=== PATIENT | female | born 1955 | race Caucasian/White ===

== ENCOUNTER 2016-08-11 21:15 | Observation (INO) | payer OTHER ==
[~2016-08-11] VITALS: Ht 160 cm; Wt 71.6 kg
[~2016-08-11 21:15] MED LIST: ANTIVERT25 MG PO; ASA OR; ASPIR-8181 MG OR; AZITHROMYCIN250 MG PO; COMBIVENT IN; DARVOCET N-100100 - OR; DOXYCYC MONO100 M1 OR; KEFLEX500 MG OR; LEVAQUIN500 MG PO; LORTAB 5 OR; Levaquin OR; MACROBID100 MG OR; MEDDOSEPAK OR; MIRALAX3350 N1 OR; NAPROSYN500 MG OR; PREDNISONE20 MG OR; PREDNISONE20 MG PO; PROVENTIL INH17 GM IN; SINGULAIR10 MG OR; SINGULAIR10 MG PO; SPIRIVA IN; THEO-24200 MG OR; THEO-24200 MG PO; VENTOLIN HFA IN; XOPENEX HFA IN; ZOFRAN ODT4 MG PO; ZPAK OR; [UNRECOGNIZED DRUG - OTHER] OR
--- NOTE | 2016-08-11 21:15 | NUR ---
PT TO ROOM FOR TREATMENT VIA WHEELCHAIR FOR TREATMENT.
[2016-08-11 21:52] LABS: HEMATOCRIT 42.3 % (37.0-47.0); HEMOGLOBIN 13.6 g/dl (12.0-16.0); IMMATURE GRANULOCYTES 0.3 % (0.0-1.0); MEAN CELL VOLUME 95.9 fL CALC (80.0-100.0); MEAN CORPUSCULAR HGB 30.8 pG CALC (26.0-32.0); MEAN CORPUSCULAR HGB CONC 32.2 g/L CALC (32.0-36.0); NEUT# 5.06 thou/uL (2.00-7.15); RED BLOOD COUNT 4.41 mill/uL (4.20-5.60); RED CELL DISTRI WIDTH 12.3 % (11.5-15.5)
[2016-08-11 22:09] LABS: ALBUMIN 4.5 g/dL (3.2-5.0); ALKALINE PHOSPHATASE 137 u/l (38-126); AMYLASE 112 u/l (30-110); ANION GAP 16 (6-22 (CALC)); BILIRUBIN, TOTAL 0.5 mg/dL (0.0-1.4); BUN 16 mg/dL (8-23); BUN/CREATININE RATIO 22 (12-20 (CALC)); CALCIUM 9.6 mg/dL (8.4-10.2); CARBON DIOXIDE 32 mmol/l (22-30); CHLORIDE 100 mmol/l (95-108); CREATININE 0.7 mg/dL (0.5-1.0); GFR > 60 ML/MIN (>=60 (CALC)); GFR FOR AFR.AMER. > 60 ML/MIN (>=60 (CALC)); GLUCOSE 101 mg/dL (82-115); LIPASE 130 u/l (23-300); POTASSIUM 4.3 mmol/l (3.5-5.1); SGOT/AST 28 u/l (9-36); SGPT/ALT 34 u/l (11-66); SODIUM 143 mmol/l (137-146); TOTAL PROTEIN 8.4 g/dL (6.3-8.2)
--- NOTE | 2016-08-11 22:15 | NUR ---
PAIN DOWN TO 3/10.
[2016-08-11] MEDS ORDERED: DITROPAN PO (22:36)
[2016-08-11] MEDS ORDERED: IBUPROFEN200 MG PO (22:37)
--- NOTE | 2016-08-11 23:30 | NUR ---
PT STATES CHEST PAIN STILL GONE AND HEADACHE BETTER. TRIED TO CALL REPORT, NURSE WILL CALL BACK
--- NOTE | 2016-08-12 00:01 | NUR ---
REPORT GIVEN TO DAMIÁN TATE.
--- NOTE | 2016-08-12 00:08 | NUR ---
female pt received to 261 via wc accompanied by DAMIÁN Faye in stable condition; ambulatory to scale then bed with slow gait; admission assessment completed at this time; c/c of intermittent midsternal chest pain since 1400 08/11/16; denies sob/n/v/diaphoresis with cp; pain did not radiate; deny chest pain at this moment; a&o; complaints of headache rating 10/10; tylenol offered with refusal; s/e of ntg explained; resp even and unlabored; lungs clear/ coarse bases; skin color wnl; o2 per nc; pt is home o2 depend; dry nonprod cough noted; hr reg; sr on monitor; strong pulses; discoloration noted to bilat feet; abd soft with bs present; pt admits to freq voiding; no urine to inspect at this time; #22 flushed and patent to lac; plan of care/ meds explained; call light within reach; will continue to monitor
--- NOTE | 2016-08-12 00:10 | NUR ---
Admission Note Report Given to: DAMIÁN TATE. Transported by: X Wheelchair Stretcher Transported with: X Nurse Transporter X Patent IV O2 X Director Of Product Development
[2016-08-12 00:15] VITALS: BP 169/94
--- NOTE | 2016-08-12 02:10 | NUR ---
resting with eyes closed; no distress noted; will continue to monitor
--- NOTE | 2016-08-12 04:15 | NUR ---
resting with eyes closed; no distress noted; sr 68 on tele; iv intact; call light within reach; will continue to monitor
[2016-08-12 04:35] VITALS: BP 132/83
[2016-08-12 07:35] VITALS: BP 155/93
[2016-08-12 08:49] LABS: ANION GAP 15 (6-22 (CALC)); BUN 12 mg/dL (8-23); BUN/CREATININE RATIO 18 (12-20 (CALC)); CARBON DIOXIDE 31 mmol/l (22-30); CHLORIDE 102 mmol/l (95-108); CREATININE 0.7 mg/dL (0.5-1.0); GFR > 60 ML/MIN (>=60 (CALC)); GFR FOR AFR.AMER. > 60 ML/MIN (>=60 (CALC)); GLUCOSE 98 mg/dL (82-115); MAGNESIUM 2.3 mg/dL (1.6-2.3); POTASSIUM 4.3 mmol/l (3.5-5.1); SODIUM 144 mmol/l (137-146)
--- NOTE | 2016-08-12 09:08 | NUR ---
PT ASSSITED TO SITTING UP IN RECLINER AT BEDSIDE, PT AMBULATES WITH FAIRLY STEADY GAIT AND STAND BY ASSIST, TOLERATES ACTIVITY WELL, AM ASSESSMENT COMPLETED SEE INTERVENTIONS, SKIN INTACT WITH NO BREAKDOWN NOTED, TELE INTACT OFFERS NO COMPLAINTS OF PAIN AT THIS TIME, SAFETY MEASURES REINFORCED, WILL CONTINUE TO MONITOR
--- NOTE | 2016-08-12 09:11 | NUR ---
TOLERATED DIET WELL, OFFERS NO NEW COMPLAINTS, CONTINUES TO DENY CHEST PAIN.
[2016-08-12] MEDS ORDERED: PROTONIX40 MG PO (10:11)
[2016-08-12] MEDS ORDERED: DIOVAN HCT PO (10:11)
[2016-08-12 11:17] VITALS: BP 138/84
--- NOTE | 2016-08-12 12:00 | NUR ---
IN TO SEE PATIENT EARLIER, DISCUSSED WITH HER NEED FOR ANTIHYPERTENSIVE, PT VERBALIZES UNDERSTANDING
--- NOTE | 2016-08-12 12:20 | NUR ---
PT STARTED ON DIOVAN/HCTZ ORDERED, PT EDUCATED REGARDING REASON FOR ADMINSTRATION, EXPECTATIONS, AND POSSOBLE SIDE EFFECTS, VERBSLIZES UNDERSTANDING WILL RECHECK BP IN ONE HR
--- NOTE | 2016-08-12 13:10 | NUR ---
REPEAT BP 127/81 PLANNED D/C AT THIS TIME
[2016-08-12 13:20] VITALS: BP 127/81
--- NOTE | 2016-08-12 14:00 | NUR ---
Discharge instructions given. Patient verbalizes understanding of same. Discharged in stable condition via Wheelchair to Home with friend. All belongings sent with pt.
== END 2016-08-12 13:58 | disposition home or self-care (01) | DRG 313 ==
LOC: ENPENDDIS → ED 21:15 → ED-I 22:48 → ED 23:04 → MS2 23:05
PROVIDERS: Emergency Medicine; ADMIT Internal Medicine; ATTEND Internal Medicine
PROC: 3E0234Z Introduction of Serum, Toxoid and Vaccine into Muscle, Percutaneous Approach (ICD-10-PCS; principal; 2016-08-12)
DX: R07.9 Chest pain, unspecified (principal); J96.11 Chronic respiratory failure with hypoxia; R73.03 Prediabetes; J44.9 Chronic obstructive pulmonary disease, unspecified; K21.9 Gastro-esophageal reflux disease without esophagitis; R10.13 Epigastric pain; I10 Essential (primary) hypertension; Z23 Encounter for immunization; Z87.891 Personal history of nicotine dependence
CPT/HCPCS: G0378; J1650

== ENCOUNTER 2016-09-04 17:43 | Emergency (ER) | payer OTHER ==
[~2016-09-04] VITALS: Ht 160 cm; Wt 70.0 kg
[~2016-09-04 17:43] MED LIST changes: +DIOVAN HCT PO; +DITROPAN PO; +IBUPROFEN200 MG PO; +PROTONIX40 MG PO
[2016-09-04 18:21] LABS: HEMOGLOBIN 13.8 g/dl (12.0-16.0); IMMATURE GRANULOCYTES 0.7 % (0.0-1.0); MEAN CORPUSCULAR HGB 31.2 pG CALC (26.0-32.0); MEAN CORPUSCULAR HGB CONC 32.9 g/L CALC (32.0-36.0); NEUT# 6.8 thou/uL (2.00-7.15); RED BLOOD COUNT 4.42 mill/uL (4.20-5.60); RED CELL DISTRI WIDTH 12.3 % (11.5-15.5)
[2016-09-04 18:59] LABS: ALBUMIN 4.5 g/dL (3.2-5.0); ALKALINE PHOSPHATASE 123 u/l (38-126); ANION GAP 17 (6-22 (CALC)); BILIRUBIN, TOTAL 1.5 mg/dL (0.0-1.4); BUN 21 mg/dL (8-23); BUN/CREATININE RATIO 25 (12-20 (CALC)); CALCIUM 9.7 mg/dL (8.4-10.2); CARBON DIOXIDE 27 mmol/l (22-30); CHLORIDE 98 mmol/l (95-108); CREATININE 0.8 mg/dL (0.5-1.0); GFR > 60 ML/MIN (>=60 (CALC)); GFR FOR AFR.AMER. > 60 ML/MIN (>=60 (CALC)); GLUCOSE 95 mg/dL (82-115); POTASSIUM 3.9 mmol/l (3.5-5.1); SGOT/AST 31 u/l (9-36); SGPT/ALT 39 u/l (11-66); SODIUM 139 mmol/l (137-146); TOTAL PROTEIN 8.6 g/dL (6.3-8.2)
[2016-09-04] MEDS ORDERED: BACTRIM DS1 TAB PO (20:00)
[2016-09-04] MEDS ORDERED: NAPROSYN500 MG PO (20:00)
[2016-09-04 20:18] LABS: URINE BILIRUBIN - DIPSTICK NEGATIVE (NEGATIVE); URINE BLOOD DIPSTICK TRACE-INTACT (NEGATIVE); URINE COLOR YELLOW; URINE GLUCOSE - DIPSTICK NEGATIVE (NEGATIVE); URINE KETONE NEGATIVE (NEGATIVE); URINE LEUK ESTERASE MODERATE (Negative); URINE NITRITE - DIPSTICK NEGATIVE (Negative); URINE PROTEIN - DIPSTICK NEGATIVE (NEG-TRACE); URINE UROBILINOGEN - DIPSTICK 0.2 E.U./dL (0.2)
[2016-09-04 20:19] LABS: URINE CLARITY HAZY
[2016-09-04 20:28] LABS: URINE SQUAMOUS EPITHELIAL CELL FEW EPI/hpf (0-FEW)
[2016-09-04 20:30] VITALS: BP 140/89
== END 2016-09-04 20:35 | disposition home or self-care (01) | DRG 603 ==
LOC: ED 17:43
DX: L03.116 Cellulitis of left lower limb (principal); N39.0 Urinary tract infection, site not specified; B95.7 Other staphylococcus as the cause of diseases classified elsewhere

== ENCOUNTER 2017-04-16 20:32 | Observation (INO) | payer OTHER ==
[~2017-04-16] VITALS: Ht 160 cm; Wt 75.0 kg
[~2017-04-16 20:32] MED LIST changes: +BACTRIM DS1 TAB PO; +NAPROSYN500 MG PO
[2017-04-16 21:14] LABS: HEMATOCRIT 40.7 % (37.0-47.0); HEMOGLOBIN 13.5 g/dl (12.0-16.0); IMMATURE GRANULOCYTES 0.5 % (0.0-1.0); MEAN CELL VOLUME 94.9 fL CALC (80.0-100.0); MEAN CORPUSCULAR HGB 31.5 pG CALC (26.0-32.0); MEAN CORPUSCULAR HGB CONC 33.2 g/L CALC (32.0-36.0); NEUT# 5.02 thou/uL (2.00-7.15); RED BLOOD COUNT 4.29 mill/uL (4.20-5.60); RED CELL DISTRI WIDTH 12.6 % (11.5-15.5)
[2017-04-16 21:27] LABS: ALBUMIN 4.5 g/dL (3.2-5.0); ALKALINE PHOSPHATASE 145 u/l (38-126); AMYLASE 87 u/l (30-110); ANION GAP 16 (6-22 (CALC)); BILIRUBIN, TOTAL 0.5 mg/dL (0.0-1.4); BUN 18 mg/dL (8-23); BUN/CREATININE RATIO 18 (12-20 (CALC)); CALCIUM 9.8 mg/dL (8.4-10.2); CARBON DIOXIDE 31 mmol/l (22-30); CHLORIDE 100 mmol/l (95-108); GFR 56 ML/MIN (>=60 (CALC)); GFR FOR AFR.AMER. > 60 ML/MIN (>=60 (CALC)); GLUCOSE 123 mg/dL (82-115); LIPASE 118 u/l (23-300); POTASSIUM 3.7 mmol/l (3.5-5.1); SGOT/AST 35 u/l (9-36); SGPT/ALT 39 u/l (11-66); SODIUM 143 mmol/l (137-146); TOTAL PROTEIN 7.8 g/dL (6.3-8.2)
[2017-04-16 21:32] LABS: PROTHROMBIN TIME 10.7 SECONDS (9.0-12.5)
[2017-04-16 21:39] LABS: MYOGLOBIN 29 ng/mL (0 - 62)
[2017-04-17 01:00] VITALS: BP 129/83
[2017-04-17 02:28] LABS: URINE BILIRUBIN - DIPSTICK NEGATIVE (NEGATIVE); URINE BLOOD DIPSTICK NEGATIVE (NEGATIVE); URINE COLOR YELLOW; URINE GLUCOSE - DIPSTICK NEGATIVE (NEGATIVE); URINE KETONE NEGATIVE (NEGATIVE); URINE NITRITE - DIPSTICK NEGATIVE (Negative); URINE PROTEIN - DIPSTICK NEGATIVE (NEG-TRACE)
[2017-04-17 02:29] LABS: URINE CLARITY CLEAR; URINE LEUK ESTERASE SMALL (NEGATIVE)
[2017-04-17 02:40] LABS: URINE BACTERIA MODERATE hpf
[2017-04-17 03:45] LABS: CHOLESTEROL HDL RATIO 2.1 (<4.4 (CALC))
[2017-04-17 05:00] VITALS: BP 119/68
[2017-04-17 08:06] VITALS: BP 144/87
[2017-04-17] MEDS ORDERED: NITROGLYCER0.4 MG SL (10:10)
[2017-04-17 11:20] VITALS: BP 143/87
[2017-04-17] MEDS ORDERED: KEFLEX500 M1 PO (11:42)
== END 2017-04-17 12:00 | disposition home or self-care (01) | DRG 311 ==
LOC: ED 20:32 → ED-I 22:28 → ED 22:58 → MS2 22:59
PROVIDERS: Emergency Medicine; ADMIT Internal Medicine; ATTEND Internal Medicine
DX: I20.9 Angina pectoris, unspecified (principal); J96.10 Chronic respiratory failure, unspecified whether with hypoxia or hypercapnia; Z99.81 Dependence on supplemental oxygen; J43.9 Emphysema, unspecified; N39.0 Urinary tract infection, site not specified; M19.90 Unspecified osteoarthritis, unspecified site; K21.9 Gastro-esophageal reflux disease without esophagitis; R32 Unspecified urinary incontinence; R10.13 Epigastric pain; Z95.820 Peripheral vascular angioplasty status with implants and grafts; Z87.440 Personal history of urinary (tract) infections; Z87.891 Personal history of nicotine dependence; Z82.49 Family history of ischemic heart disease and other diseases of the circulatory system
CPT/HCPCS: G0378

== ENCOUNTER 2017-09-28 22:57 | Inpatient (IN) | payer OTHER ==
[~2017-09-28] VITALS: Ht 160 cm; Wt 82.2 kg
[~2017-09-28 22:57] MED LIST changes: +KEFLEX500 M1 PO; +NITROGLYCER0.4 MG SL
--- NOTE | 2017-09-28 23:00 | NUR ---
PATIENT TO ROOM 9 VIA EMS STRETCHER. UNDRESSED INTO A GOWN. PLACD ON MONITOR. TRIAGE COMPLETED AT BEDSIDE AWAITING MD GARCIA.
--- NOTE | 2017-09-28 23:10 | NUR ---
A/O F WITH SOB,SL NEGATIVE SPOTTER COUGH,SWEATS FEVER ON ARRIVAL TO ER.DENIES DYSURIA,NO V/D
[2017-09-28] MEDS ORDERED: MELOXICAM15 MG PO (23:20)
[2017-09-28 23:28] LABS: BASO% 0 % (0-3); EOS% 0 % (0-8); HEMATOCRIT 43.1 % (37.0-47.0); IMMATURE GRANULOCYTES 1.6 % (0.0-1.0); LYMPH% 3 % (15-41); MEAN CELL VOLUME 94.7 fL CALC (80.0-100.0); MEAN CORPUSCULAR HGB 30.8 pG CALC (26.0-32.0); MEAN CORPUSCULAR HGB CONC 32.5 g/L CALC (32.0-36.0); MONO% 2 % (2-13); NEUT# 35.41 thou/uL (2.00-7.15); NEUT% 94 % (42-76); PLATELET COUNT 305 thou/uL (130-400); RED BLOOD COUNT 4.55 mill/uL (4.20-5.60); RED CELL DISTRI WIDTH 12.4 % (11.5-15.5)
[2017-09-28 23:36] LABS: MANUAL DIFFERENTIAL YES
[2017-09-28 23:38] LABS: INFLUENZA A NONE DETECTED (NONE DETECT); INFLUENZA B NONE DETECTED (NONE DETECT)
[2017-09-28 23:41] LABS: ALBUMIN 4.3 g/dL (3.2-5.0); ALKALINE PHOSPHATASE 131 u/l (38-126); ANION GAP 21 (6-22 (CALC)); BILIRUBIN, TOTAL 0.9 mg/dL (0.0-1.4); BUN 18 mg/dL (8-23); BUN/CREATININE RATIO 27 (12-20 (CALC)); CARBON DIOXIDE 24 mmol/l (22-30); CHLORIDE 100 mmol/l (95-108); CREATININE 0.7 mg/dL (0.5-1.0); GFR > 60 ML/MIN (>=60 (CALC)); GFR FOR AFR.AMER. > 60 ML/MIN (>=60 (CALC)); POTASSIUM 4.1 mmol/l (3.5-5.1); SGOT/AST 29 u/l (9-36); SGPT/ALT 33 u/l (11-66); SODIUM 140 mmol/l (137-146); TOTAL PROTEIN 8.8 g/dL (6.3-8.2)
[2017-09-28 23:47] LABS: PROTHROMBIN TIME 10.9 SECONDS (9.0-12.5)
[2017-09-28 23:50] LABS: PLATELET ESTIMATE NORMAL
[2017-09-28 23:53] LABS: MYOGLOBIN 22 ng/mL (0 - 62)
[2017-09-29] VITALS (21 sets, daily range): BP systolic 99–139; BP diastolic 54–79
--- NOTE | 2017-09-29 01:04 | NUR ---
NO RESP DIFF OR DISTRESS.W/P/D SKIN.SAT ON COMMODE CHAIR BUT UNABLE TO VOID ASSISTED BACK TO BED
--- NOTE | 2017-09-29 01:45 | NUR ---
PATIENT IS STILL UNABLE TO VOID. AGREES TO A STRAIGHT CATH FOR URINE SAMPLE. PATIENT TOLERATED WELL. SAMPLE COLLECTED AND SENT.
--- NOTE | 2017-09-29 02:05 | NUR ---
ENTERED PATIENT ROOM FOR AN ALARMING PUMP AND PATIENT STATES SHE FEELS LIKE SHE IS GOING TO PASS OUT. HOB RECLINED AND BP CHECKED. PATIENT IS WARM TO THE TOUCH, AND DIAPHORETIC ON HER FOREHEAD. BP 53/37. MD AWARE AND ORDERS FOR IVF RECEIVED.
[2017-09-29 02:11] LABS: URINE BILIRUBIN - DIPSTICK NEGATIVE (NEGATIVE); URINE BLOOD DIPSTICK TRACE-LYSED (NEGATIVE); URINE COLOR YELLOW; URINE GLUCOSE - DIPSTICK NEGATIVE (NEGATIVE); URINE KETONE NEGATIVE (NEGATIVE); URINE LEUK ESTERASE NEGATIVE (NEGATIVE); URINE NITRITE - DIPSTICK NEGATIVE (Negative); URINE PROTEIN - DIPSTICK NEGATIVE (NEG-TRACE); URINE UROBILINOGEN - DIPSTICK 0.2 E.U./dL (0.2)
[2017-09-29 02:12] LABS: URINE CLARITY CLEAR
--- NOTE | 2017-09-29 02:15 | NUR ---
SECOND IV ESTABLISHED, IVF INFUSING. BP 61/41. PATIENT ACCU CHECK COMPLETED BLOOD SUGAR 140. MD AT BEDSIDE FOR EVAL.
--- NOTE | 2017-09-29 02:24 | NUR ---
A/O DENIES PAIN OF ANY ORIGIN.W/P/D SKIN.IVS INFUSING ORDERED
--- NOTE | 2017-09-29 02:47 | NUR ---
phone report to nurse griffin rn in icu
--- NOTE | 2017-09-29 02:54 | NUR ---
to icu in improved stable condition
--- NOTE | 2017-09-29 03:10 | NUR ---
62 yr old white female admitted icu8 per stretcher from er. transferred self to bed. bed weight obtained. o2 cont per nc. conveyor monitor shows sinus tach. #18 rac-ns bolus & abx cont. #20 lac ns bolus & abx cont. history obtained per pt & er record. oriented to room. fall precautions initiated.
--- NOTE | 2017-09-29 03:45 | NUR ---
up to bsc. voided well. urine clear yellow. no syncope. ivf completed lac & saline locked.
--- NOTE | 2017-09-29 06:10 | NUR ---
voided per bsc. tylenol 650mg po given per request for h/a.
--- NOTE | 2017-09-29 07:20 | NUR ---
pt noted resting with eyes closed; easily aroused; pt offers no complaints; assessment completed at this time; pt alert and oriented; denies pain/ headache; no n/v noted; denies dizziness or faint feeling; resp even and unlabored; lungs clear; skin color wnl; o2 per nc at 2L; dry diabetologist cough noted; hr reg; strong pulses; trace edema noted to lle; st on monitor; abd soft/ distended with bs present; no bm noted per loan underwriter; pt admits to last bm 2 days ago/ states norm; admits to voiding without pain or burning; no urine to inspect at this time; bsc; #18 flushed and patent to rac; #20 ems site removed from lac per pt request d/t discomfort; no redness or edema noted at site; erythema/warmth/edema noted to lower left leg; plan of care/ prn meds explained; call light within reach; will continue to monitor
--- NOTE | 2017-09-29 08:08 | NUR ---
awake in bed; offers no complaints; iv intact; st on monitor; o2 per nc; call light within reach; will continue to monitor
--- NOTE | 2017-09-29 08:19 | NUR ---
Ely Miles NP at bedside to assess pt and discuss plan of care
--- NOTE | 2017-09-29 08:35 | NUR ---
pt transported to ultrasound via with portable o2 in stable condition;
--- NOTE | 2017-09-29 09:10 | NUR ---
pt returned to unit from radiolody via wc in stable condition; pt offers no complaints; no resp distress noted; assist to chair for am care/ linen changed; call light within reach; will continue to monitor
--- NOTE | 2017-09-29 10:05 | NUR ---
awake; no distress noted; offers no complaints; sr on monitor; iv intact; o2 per nc; call light within reach; will continue to monitor
--- NOTE | 2017-09-29 11:54 | NUR ---
awake in bed; assist to bsc; unable to void; pt offers no complaints; denies pain; temp 100.5; medicated with tylenol at this time; iv patent; abt infusing without complication; no redness or edema noted at site; st on monitor; lungs noted with wheezing throughout; sob noted with minimal exertion; call light within reach; will continue to monitor
--- NOTE | 2017-09-29 12:31 | NUR ---
notified Ely Miles NP of pt complaints of pain to lle; orders to be placed
--- NOTE | 2017-09-29 13:58 | NUR ---
pt noted resting with eyes closed; no distress noted; resp even and unlabored; o2 per nc; iv intact; no redness or edema noted at site; sr on monitor; call light within reach; will continue to monitor
--- NOTE | 2017-09-29 14:04 | NUR ---
Drug Selected: Vancomycin Age: 62 years Weight: 80 kg Height: 63 in Gender: Female SCR: 0.7 mg/dl CRCL (ml/min): 67.2 Give Vancomycin 1000 mg q12 hrs NEXT TROUGH WILL BE 09/30/17 @0930AM
--- NOTE | 2017-09-29 16:05 | NUR ---
awake in bed; family present at bedside; Isidro-Dur placed in med room to be verified by pharmacy; iv intact; no redness or edema noted at site; st on monitor; temp 99.2; o2 per nc; pt denies pain/deny needs; po fluids/ juice provided as per request; call light within reach; will continue to monitor
--- NOTE | 2017-09-29 17:57 | NUR ---
awake in bed eating dinner; no distress noted; pt offers no complaints; iv flushed and patent; abt infusing without complication; o2 per nc; st on monitor; pt deny needs/ concerns; bed in lowest position; call light within reach;
--- NOTE | 2017-09-29 19:40 | NUR ---
PT IN HIGHFOWLERS WITH EYES CLOSED, RESPIRATIONS EVEN AND UNLABORED ON O2 @2L VIA NC, O2 SAT 95%. TEMP 101.6, TYLENOL 650MG PO PROVIDED AT THIS TIME. LEFT LEG IS REDDENED AND EDEMATOUS, DENIES PAIN. TELE READING ST 100, B/P 133/62. PO FLUIDS IN REACH. WILL CONTINUE TO MONITOR.
--- NOTE | 2017-09-29 20:51 | NUR ---
TEMP 102.0, ICE PACKS APPLIED
--- NOTE | 2017-09-29 21:30 | NUR ---
TEMP 100.2, VANCOMYCIN INFUSING TO RFA WITH NO COMPLICATIONS.
[2017-09-30] VITALS (17 sets, daily range): BP systolic 103–147; BP diastolic 58–71
--- NOTE | 2017-09-30 | NUR ---
TYLENOL 650MG PO PROVIDED FOR C/O LEFT LEG PAIN 08/07. ZOSYN SPIKED AND INFUSING TO LFA WITH NO COMPLICATIONS. RESPIRATIONS EVEN AND UNLABORED, O2 SAT 98% ON O2 @2L VIA NC, CALL LIGHT IN REACH.
--- NOTE | 2017-09-30 02:00 | NUR ---
IN BED WITH EYES CLOSED, RESPIRATIONS EVEN AND UNLABORED ON O2@2L VIA NC, O2 SAT 98%. CALL LIGHT IN REACH.
--- NOTE | 2017-09-30 04:00 | NUR ---
OOB TO BSC, VOIDING 300ML CLEAR YELLOW URINE. BACK TO BED, CALL LIGHT IN REACH. TEMP 98.9
[2017-09-30 05:33] LABS: HEMATOCRIT 37.3 % (37.0-47.0); MEAN CELL VOLUME 96.9 fL CALC (80.0-100.0); MEAN CORPUSCULAR HGB 30.6 pG CALC (26.0-32.0); MEAN CORPUSCULAR HGB CONC 31.6 g/L CALC (32.0-36.0); NEUT# 24.99 thou/uL (2.00-7.15); RED BLOOD COUNT 3.85 mill/uL (4.20-5.60); RED CELL DISTRI WIDTH 13.1 % (11.5-15.5)
[2017-09-30 05:50] LABS: ANION GAP 13 (6-22 (CALC)); BUN 18 mg/dL (8-23); BUN/CREATININE RATIO 30 (12-20 (CALC)); CARBON DIOXIDE 22 mmol/l (22-30); CHLORIDE 107 mmol/l (95-108); CREATININE 0.6 mg/dL (0.5-1.0); GFR > 60 ML/MIN (>=60 (CALC)); GFR FOR AFR.AMER. > 60 ML/MIN (>=60 (CALC)); HEMOGLOBIN 11.8 g/dl (12.0-16.0); POTASSIUM 3.5 mmol/l (3.5-5.1); SODIUM 138 mmol/l (137-146)
--- NOTE | 2017-09-30 07:25 | NUR ---
PT RESTING IN BED, WITH EYES CLOSED, [id number] EASILY TO VERBAL STIMULI, AM ASSESSMENT COMPLETED SEE INTERVENTIONS, SKIN WARM SAM AND INTACT LLE REDDENED EDEAMTOUS WITH PPPB, PT DENBIES PAIN OR DISCOMFORT THIS AM , MONITOR TEMP CLOSELY RELATED TO T MAX 102.0 LAST PM CURRENTLY 99.6 ABD SOFT; BS ACTIVE DENIES N/V, ABLE TO REPOSITION SELF FOR COMFORT, PER REPORT OOB TO BSC WITH ASSIST, LUNGS CLEAR DIMINISHED IN BASES, WITH NO SOB OR DISTRESS NOTED,O2 ON AT 2L VIA NC, PT ADMITS TO AHVING O2 AT HOME WELL FOR PRN USAGE, O2 SATS MAINTAINED AT 98-100% ON 2L, PT RESPS TEND TO INCREASE AND MIN AUDIBLE EXTERNAL WHEEZING HEARD WITH NURSE IN ROOM, PT DENIES ANXIETY, TELE READING SR/ST RATE 100'S, BP STABLE CALL BALDWIN WITHIN REACH, WILL CONTINUE TO MONITOR.
--- NOTE | 2017-09-30 07:48 | NUR ---
SET UP ASSIST PROVIDED FOR AM MEAL, CALL BALDWIN WITHIN REACH
--- NOTE | 2017-09-30 09:30 | NUR ---
ADRIEL BRADFORD IN TO SEE PATIENT, PLAN OF CARE DISCUSSED, OFFERS NO NEW COMPLAINTS, CALL BALDWIN WITHIN REACH,
--- NOTE | 2017-09-30 11:14 | NUR ---
PT DOZING, OFFERS NO NEW COMPLAINTS, IV ABT CHANGED BASED ON VANCO TROUGH PER PHARMACY, CURRENT DOSE OF VANCO STARTED EARLIER ORDERED, CALL BALDWIN WITHIN REACH, WILL CONTINUE TO MONITOR.
--- NOTE | 2017-09-30 11:26 | NUR ---
PT OOB TO RECLINER WITH PONY TRIMMER ASSIST, TOLERATED ACTIVITY WELL, EASILY VISIBLE FROM NURSE STATION FOR SAFETY, CALL BALDWIN WITHIN REACH
--- NOTE | 2017-09-30 11:50 | NUR ---
TEMP 100.6 WILL MEDICATE WITH TYLENOL ORDERED, PT REMAINS SITTING UP IN RECLINER,
--- NOTE | 2017-09-30 11:58 | NUR ---
Vancomycin single level analysis: Current dose being given: 1000 mg Current dosing interval: 12 hrs Current infusion time (hrs): 2 Single level Trough Data: Trough level obtained: 8 mcg/ml Recommendations: Give Vancomycin 1000 mg q 8 hrs. Infuse over 2 hrs NEXT TROUGH WILL BE 10/02/17 @0930
--- NOTE | 2017-09-30 12:34 | NUR ---
PT BACK TO BED WITH MOD ASSIST, L;LE ELEVATED ON PILLOW IN BED, REPOSITIONED FOR COMFORT, IV ABT CONTINUES W/O INCIDENT, WILL CONTINUE TO MONITOR.
--- NOTE | 2017-09-30 13:22 | NUR ---
TEMP 99.2 TYMPANICALLY, RESTING IN BED, NO S/S OF DISTRESS, WILL CONTINUE TO MONITOR.
--- NOTE | 2017-09-30 14:15 | NUR ---
PT RESTING INBED WTIH EYS CLSOED, NO S/S OF DISTRESS OR DICOMFORT, REPOSITIONED SELF FOR COMFRT, LLE REMAINS ELEVATED ON PILLOW, REMAINS EDMEATOUS AND RED, WARM WITH GOOD CAP REFILL AND PPPB, WILL CONTINUE TO MONITOR
--- NOTE | 2017-09-30 16:01 | NUR ---
PT REMAINS RESTING IN BED WITH EYES CLOSED, NO S/S OF DISTRESS OR DISCOMFORT, CALL BALDWIN WITHIN REACH, WILL CONTINUE TO MONITOR.
--- NOTE | 2017-09-30 16:16 | NUR ---
VISITOR AT BEDSIDE
--- NOTE | 2017-09-30 17:21 | NUR ---
JULIETA LOZANO, OFFERS NO NEW COMPLAITN,S CALL BALDWIN WITHIN REACH
--- NOTE | 2017-09-30 17:27 | NUR ---
PT OOB TO BSC, SOME REDNESS NOTED ON INNER THIGH AREA OF LUE, AND REDNESS TO LLE REMAINS UNCHANGED STILL RED AND FIRM WITH SOME BLISTERING NOTED ON INNER ASPECT WELL.
--- NOTE | 2017-09-30 18:15 | NUR ---
PT REMAINS SITTING UP IN RECLINER WITH LLE ELEAVTED ON PILLOWS, TOLERATED PM MEAL WELL, CALL BALDWIN WITHIN REACH, IV ABT CONTINUE ORDERED
--- NOTE | 2017-09-30 19:14 | NUR ---
PT SITTING IN RECLINER CHAIR A/O X3, C/O PAIN 6/10 TO LEFT LOWER EXTREMITY. ULTRAM 50MG PO PROVIDED PER MAR AT THIS TIME. REQUESTING TO GO BACK TO BED, AMBULATING WITH SLOW STEADY GAIT TO [facility] THEN TO BED. VOIDING CLEAR YELLOW URINE. LLE ELEVATED ON PILLOW, BLISTER NOTICED TO MEDIAL [place] AREA, LEFT LEG IS REDDENED, WARM TO TOUCH AND EDEMATOUS. VANCOMYCIN INFUSING TO LAC WITH NO COMPLICATIONS, ENCOURAGED TO USE CALL LIGHT FOR ASSISTANCE, WILL CONTINUE TO MONITOR.
--- NOTE | 2017-09-30 21:14 | NUR ---
C/O HEADACHE 11/06, TYLENOL 650MG PO ADMINISTERED PER JUN.
--- NOTE | 2017-09-30 23:00 | NUR ---
RESTING WITH EYES CLOSED, RESPIRATIONS EVEN AND UNLABORED, NS INFUSING TO LAC AT 15CC/HR. CALL LIGHT IN REACH.
[2017-10-01] VITALS (14 sets, daily range): BP systolic 94–162; BP diastolic 56–78
--- NOTE | 2017-10-01 01:30 | NUR ---
RESTING WITH EYES CLOSED, RESPIRAITONS EVEN AND UNLABORED ON O2 @2L VIA NC, CALL LIGHT IN REACH.
--- NOTE | 2017-10-01 03:30 | NUR ---
RESTING WITH EYES CLOSED, RESPIRATIONS EVEN AND UNLABORED ON O2 @2L VIA NC, CALL LIGHT IN REACH.
[2017-10-01 04:54] LABS: BASO% 0 % (0-3); EOS% 0 % (0-8); HEMATOCRIT 38.6 % (37.0-47.0); HEMOGLOBIN 12.2 g/dl (12.0-16.0); IMMATURE GRANULOCYTES 1.5 % (0.0-1.0); LYMPH% 3 % (15-41); MEAN CELL VOLUME 98.7 fL CALC (80.0-100.0); MEAN CORPUSCULAR HGB 31.2 pG CALC (26.0-32.0); MEAN CORPUSCULAR HGB CONC 31.6 g/L CALC (32.0-36.0); MONO% 2 % (2-13); NEUT# 31.58 thou/uL (2.00-7.15); NEUT% 94 % (42-76); PLATELET COUNT 210 thou/uL (130-400); RED BLOOD COUNT 3.91 mill/uL (4.20-5.60); RED CELL DISTRI WIDTH 13.1 % (11.5-15.5)
--- NOTE | 2017-10-01 05:00 | NUR ---
OOB TO BSC WITH SLOW STEADY GAIT, LEFT LEG WEAPING YELLOWISH FLUID THIS MORNING, REDNESS NOTED TO UPPER INNER THIGH, DENIES NEED FOR PAIN MEDICATION. VOIDING 600ML CLEAR YELLOW URINE, THEN BACK TO BED. CALL LIGHT IN REACH. RESPIRATIONS EVEN AND UNLABORED.
[2017-10-01 05:02] LABS: ANION GAP 16 (6-22 (CALC)); BUN 18 mg/dL (8-23); BUN/CREATININE RATIO 39 (12-20 (CALC)); CARBON DIOXIDE 22 mmol/l (22-30); CHLORIDE 108 mmol/l (95-108); CREATININE 0.5 mg/dL (0.5-1.0); GFR > 60 ML/MIN (>=60 (CALC)); GFR FOR AFR.AMER. > 60 ML/MIN (>=60 (CALC)); MAGNESIUM 2.2 mg/dL (1.6-2.3); POTASSIUM 3.6 mmol/l (3.5-5.1); SODIUM 142 mmol/l (137-146)
[2017-10-01 05:34] LABS: MANUAL DIFFERENTIAL YES
[2017-10-01 05:37] LABS: PLATELET ESTIMATE NORMAL
--- NOTE | 2017-10-01 07:25 | NUR ---
PT RESTING IN BED, WITH EYES CLOSED, AROUSES EASILY TO VERBAL STIMULI, AM ASSESSMENT COMPLETED SEE INTERVENTIONS, SKIN WARM AND DRY AND INTACT LLE REDDENED EDEAMTOUS WITH PPPB, PT DENBIES PAIN OR DISCOMFORT THIS AM , MONITOR TEMP CLOSELY RELATED TO T-MAX 99.0 LAST PM CURRENTLY 97.6 ABD SOFT; BS ACTIVE DENIES N/V, ABLE TO REPOSITION SELF FOR COMFORT, PER REPORT OOB TO BSC WITH ASSIST, LUNGS CLEAR DIMINISHED IN BASES, WITH NO SOB OR DISTRESS NOTED,O2 ON AT 2L VIA NC, O2 SATS MAINTAINED AT 98-100% ON 2L, PT RESPS TEND TO INCREASE AND MIN AUDIBLE EXTERNAL WHEEZING HEARD WITH NURSE/DOCTOR IN ROOM, PT ADMITS TO BEING MILDLY ANXIOUS WILL MEDICATE ORDERED, TELE READING SR/ST RATE 100'S, BP STABLE CALL BALDWIN WITHIN REACH, WILL CONTINUE TO MONITOR.
--- NOTE | 2017-10-01 09:15 | NUR ---
pt family members at bedside, in to see patient and plan of care discussed inclduing IV abt and pain control, call narayan within reach, will continue to monitor
--- NOTE | 2017-10-01 09:50 | NUR ---
pt oob to bsc (given lasix iv earlier) TOLERATES ACTIVITY WELL, STATES DECENT PAIN RELIEF WITH MEDICATIONS, CALL BALDWIN WITHIN REACH, FAMILY REMAINS AT BEDSIDE.
--- NOTE | 2017-10-01 10:15 | NUR ---
pt oob to bsc, continent of clear yellow urine, provides own maya care and mod assist back to bed, call narayan within reach
--- NOTE | 2017-10-01 11:45 | NUR ---
set up assist provided for afternoon meal, vs remain stable pt remains afebrile, call narayan within reach.
--- NOTE | 2017-10-01 12:40 | NUR ---
PT RESTING IN BED, NO S/S OF DISTRESS, OFFERS NO NEW COMPLAINTS, GENERALIZED EDEMA NOTED ESPECIALLY TO EXTREMETIES, RAC SITE INTACT WITH IVF INFUSING AT KVO, SOME SCANT LEAKING NOTED WILL MONITOR CLOSELY, LLE REMAINS ELEVATED ON PILLOW WITH CONTINUED SMALL AMOUNT SEROUS WEEPING NOTED. CALL BALDWIN WITHIN REACH, WILL MONITOR CLOSELY.
--- NOTE | 2017-10-01 13:50 | NUR ---
PT BATHED AND LINENS CHANGED WITH SENIOR ECOLOGIST ASSIST, TOLERATED ACTIVITY WELL, WILL CONTINUE TO MONITOR
--- NOTE | 2017-10-01 15:31 | NUR ---
IV ACCESS IN RAC REMOVED INTACT R/T LEAKING, PT TOLERATED W/O INCIDENT, NEW 22G IN LEFT FA, WITH GOOD ASPIRATE NOTED, IVF INFUSING AT PRESCRIBED RATE, CALL BALDWIN WITHIN REACH, WILL CONTINUE TO MONITOR.
--- NOTE | 2017-10-01 16:12 | NUR ---
PT OOB TO BSC, CONTINENT OF CLEAR YELLOW URINE, PROVIDES OWN JOE CARE THEN BACK TO BED, LLE ELEVATED ON PILLOW, CONTINUES TO HAVE SEROUS DRAINGE FROM BLISTER NOTED IN ON INNER LLE, CALL BALDWIN WITHIN REACH, WILL CONTINUE TO MONITOR.
--- NOTE | 2017-10-01 17:14 | NUR ---
SET UP ASSIST PROVIDED FOR PM MEAL, CALL BALDWIN WITHIN REACH
--- NOTE | 2017-10-01 18:16 | NUR ---
COMFORT MEASURES PROVIDED AND FAN PLACED FOR PT COMFORT, CALL BALDWIN WITHIN REACH, TOLERATED EVENING MEAL WELL, WILL CONTINUE TO MONITOR.
--- NOTE | 2017-10-01 19:20 | NUR ---
awake. denies distress. o2 cont per nc. compliance monitor shows sinus rhythm. #22 lfa ns infusing @ kvo. po fluids taken well. voids per bsc. lle has markedly increased redness, swelling & blisters. weeping cont. fall precautions cont.
--- NOTE | 2017-10-01 22:00 | NUR ---
watching tv. no distress. clinical research monitor shows sinus rhythm.
--- NOTE | 2017-10-01 23:30 | NUR ---
ultram 100mg & xanax 0.25mg po per request for lle pain & sleep.
[2017-10-02] VITALS (18 sets, daily range): BP systolic 104–141; BP diastolic 62–87
--- NOTE | 2017-10-02 02:00 | NUR ---
resting quietly. resps even & unlabored. no apparent distress.
--- NOTE | 2017-10-02 04:00 | NUR ---
eyes closed. no distress. laboratory monitor shows sinus rhythm.
--- NOTE | 2017-10-02 06:00 | NUR ---
no acute change. lle cont to weep. remains elevated on pillow.
--- NOTE | 2017-10-02 06:51 | NUR ---
lab here. addie drawn.
[2017-10-02 06:58] LABS: HEMATOCRIT 36.1 % (37.0-47.0); HEMOGLOBIN 11.8 g/dl (12.0-16.0); IMMATURE GRANULOCYTES 1.7 % (0.0-1.0); MEAN CORPUSCULAR HGB 30.7 pG CALC (26.0-32.0); MEAN CORPUSCULAR HGB CONC 32.7 g/L CALC (32.0-36.0); NEUT# 25.3 thou/uL (2.00-7.15); RED BLOOD COUNT 3.84 mill/uL (4.20-5.60); RED CELL DISTRI WIDTH 12.9 % (11.5-15.5)
[2017-10-02 07:19] LABS: ANION GAP 14 (6-22 (CALC)); BUN 25 mg/dL (8-23); BUN/CREATININE RATIO 42 (12-20 (CALC)); CARBON DIOXIDE 26 mmol/l (22-30); CHLORIDE 104 mmol/l (95-108); CREATININE 0.6 mg/dL (0.5-1.0); GFR > 60 ML/MIN (>=60 (CALC)); GFR FOR AFR.AMER. > 60 ML/MIN (>=60 (CALC)); POTASSIUM 3.8 mmol/l (3.5-5.1); SODIUM 140 mmol/l (137-146)
--- NOTE | 2017-10-02 07:20 | NUR ---
awake in bed; no distress noted; assessment completed at this time; pt alert and oriented; admits to pain in lle rating 5/10; pt denies needs for pain meds at this time; no n/v noted; resp even and unlabored; sob on exertion noted; lungs clear anterior/ exp wheeze post with diminished bases; skin color wnl; o2 per nc at 2L; oracle soa developer dry cough noted; hr reg; strong pulses; trace edema noted to rle/ 1+ edema noted to lle; sr on monitor; abd soft/ distended with bs present; no bm noted per blurb writer; pt admits to voiding without pain or burning; no urine to inspect at this time; bsc; #22 in lfa patent with ns infusing at kvo; no redness or edema noted at site/sluggish blood return noted at iv site; lle noted with erythema/warmth; blister noted to inner lle weeping serous drainage; redness marked at this time; lle elevated on pillow; plan of care/ am meds explained; call light within reach; will continue to monitor
--- NOTE | 2017-10-02 08:08 | NUR ---
awake in bed; no distress noted; pt offers no complaints at this time; sr on monitor; iv patent; no redness or edema noted at site; o2 per nc; lle elevated on pillow at this time; call light within reach; will continue to monitor
--- NOTE | 2017-10-02 08:58 | NUR ---
awake; am meds explained and administered; medicated with tramadol for pain; lle repositioned; call light within reach; will continue to monitor
--- NOTE | 2017-10-02 10:10 | NUR ---
pt awake in bed; offers no complaints; resp even and unlabored; o2 per nc; st on monitor; lle elevated on pillow; Dr Wilson at bedside to assess pt and discuss plan of care; call light within reach; will continue to monitor
--- NOTE | 2017-10-02 11:49 | NUR ---
awake in bed eating lunch; no distress noted; pt with complaints of some pain at left ankle; foot elevated; redness continues; st on monitor; afebrile; pt deny needs; o2 per nc; call light within reach; will continue to monitor
--- NOTE | 2017-10-02 13:15 | NUR ---
awake; offers no complaints; no distress noted; call light within reach; will continue to monitor
--- NOTE | 2017-10-02 14:00 | NUR ---
awake in bed; st on monitor; iv patent; o2 per nc; call light within reach; will continue to monitor
--- NOTE | 2017-10-02 14:29 | NUR ---
S: NATA ADLER is a 62 F who presents with cellulitis of LLE. She has a history of COPD, chronic respiratory failure, and pre-diabeties. All medications in patient's chart were reviewed. O: VS: BP 109/62, P 100, RR 20,T 97.1 F W 80.8 kg, HT 160 cm, Scr= 0.6,CrCl= 78.36 ml/min Vancomycin Trough = 19 mcg/mL A: Preliminary blood culture shows no growth after 48 hours. Vancomycin trough is supratherapuetic P: Patient is on Zosyn 3.375 g IV q6h and vancomycin 1 g IV q8h Vancomycin ordered for pharmacy to dose. Decrease Vancomycin to 1250 mg IV Q12H. Vancomycin trough is drawn before the 4th dose on 10/04/17 0930. Vancomycin goal trough is between 10-15 mcg/ml. Pharmacy will follow and or advise on antibiotics use as needed.
--- NOTE | 2017-10-02 15:25 | NUR ---
CALL PLACED TO DR MILLER'S OFFICE FOR CONCULT, SPOKE TO MIRTA, GAVE PT INFORMATION
--- NOTE | 2017-10-02 16:00 | NUR ---
pt awake in bed; offers no complaints; no distress noted; sr on monitor; iv patent; no redness or edema noted at site; lle remains elevated; o2 per nc; vss; call light within reach; will continue to monitor
--- NOTE | 2017-10-02 16:10 | NUR ---
Dr Russell at bedside to assess pt and discuss plan of care; wound culture obtained per md; Unna Boot placed to lle secured with conor bandage per MD; lle elevated; call light within reach; will continue to monitor
--- NOTE | 2017-10-02 17:40 | NUR ---
up to bsc; bath and linen change; medicated for pain as per request; st on monitor; call light within reach; will continue to monitor
--- NOTE | 2017-10-02 17:58 | NUR ---
awake; sr on monitor; iv patent; no redness or edema noted at site; lle elevated; bed in lowest position; call light within reach
--- NOTE | 2017-10-02 19:20 | NUR ---
awake. no c/o pain voiced. wheezing bilat. o2 cont per nc. cafeteria monitor shows sinus tach. #22 lfa ns infusing @ 15cchr. po fluids taken fair. voids per bsc. unna boot cont to lle. ext remains elevated. fall precautions cont. visitors @ bedside.
--- NOTE | 2017-10-02 21:50 | NUR ---
xanax 0.25mg po given per request for sleeo.
--- NOTE | 2017-10-02 23:30 | NUR ---
awake. wheezing & crackles bilat. sounds worse than previous assessment. sa02 93%. has not voided. no acute resp dist. scheduling administrator shows sinus rhythm. dr salazar notified. orders rec'd.
[2017-10-03] VITALS (11 sets, daily range): BP systolic 113–140; BP diastolic 70–87
--- NOTE | 2017-10-03 01:30 | NUR ---
up to bsc. voided lg amt clear yellow urine. jl well.
--- NOTE | 2017-10-03 03:30 | NUR ---
up to bsc. jl well. voided lg amt.
--- NOTE | 2017-10-03 05:05 | NUR ---
lab here. blood drawn.
[2017-10-03 05:34] LABS: MEAN CELL VOLUME 94.4 fL CALC (80.0-100.0); MEAN CORPUSCULAR HGB 30.6 pG CALC (26.0-32.0); MEAN CORPUSCULAR HGB CONC 32.4 g/L CALC (32.0-36.0); RED BLOOD COUNT 3.92 mill/uL (4.20-5.60)
[2017-10-03 05:54] LABS: ANION GAP 16 (6-22 (CALC)); BUN 24 mg/dL (8-23); BUN/CREATININE RATIO 36 (12-20 (CALC)); CARBON DIOXIDE 28 mmol/l (22-30); CHLORIDE 102 mmol/l (95-108); CREATININE 0.7 mg/dL (0.5-1.0); GFR > 60 ML/MIN (>=60 (CALC)); GFR FOR AFR.AMER. > 60 ML/MIN (>=60 (CALC)); SODIUM 142 mmol/l (137-146)
--- NOTE | 2017-10-03 07:25 | NUR ---
pt awake up to bsc; no distress noted; pt offers no complaints; assisted back to bed; assessment completed at this time; pt denies pain at this time; no n/v noted; resp even and unlabored; minimal sob noted on exertion; lungs clear/ diminished bases; skin color wnl; o2 per nc; puppet engineer dry cough noted; hr reg; strong pulses; edema present to lle; sr on monitor; abd soft/ distended with bs present; no bm noted per principal technical writer; pt denies bm since admission/ principal technical writer to notify md; voiding lg amounts of clear yellow urine; bsc; #22 in lfa patent with ns infusing at 15cc/hr; no redness or edema noted at site; gerenal edema noted to upper extremities; Unna boot present to lle with conor wrap intact; redness has not exceeded past marking; foot warm/edema noted; slight redness noted to inner left thigh/ post knee; plan of care/ am meds explained; call light within reach; will continue to monitor
--- NOTE | 2017-10-03 08:10 | NUR ---
awake; offers no complaints; sr on monitor; iv patent; no redness or edema noted at site; o2 per nc; lle elevated on pillow; call light within reach; will continue to monitor
--- NOTE | 2017-10-03 08:50 | NUR ---
Dr Wilson present at bedside to assess pt and discuss plan of care
--- NOTE | 2017-10-03 10:15 | NUR ---
awake; assisted to bsc; voiding large amount of clear yellow urine; iv patent; abt infusing without complication; no redness or edema noted at site; sr on monitor; o2 per nc; pt able to bath self/ oral care with mouthwash/ complete linen change done; pt denies needs at this time; call light within reach; will continue to monitor
--- NOTE | 2017-10-03 11:58 | NUR ---
awake in bed; offers no complaints; no distress noted; iv patent; no redness or edema noted at site; o2 per nc; sr on monitor; pt deny needs at this time; call light within reach; will continue to monitor
--- NOTE | 2017-10-03 14:20 | NUR ---
awake in bed; no distress noted; pt with complaints of lle; foot elevated on pillow and repositioned; iv patent; no redness or edema noted at site; st on monitor; o2 per nc; call light witin reach; will continue to monitor
--- NOTE | 2017-10-03 14:36 | NUR ---
this marine underwriter called radiology for status on MRI; MRI to be dome tomorrow
--- NOTE | 2017-10-03 15:47 | NUR ---
awake in bed; no distress noted; pt offers no complaints; iv patent; no redness or edema noted at site; ns infusing at 15cc/hr; o2 per nc; sr on monitor; lle remains elevated in pillow; afebrile; po juice provided; call light within reach; will continue to monitor
--- NOTE | 2017-10-03 17:52 | NUR ---
awake in bed; no distress noted; pt offers no complaints; lle elevated on pillow at this time; iv patent; no redness or edema noted at site; sr on monitor; o2 per nc; bed in lowest position; call light within reach
--- NOTE | 2017-10-03 19:10 | NUR ---
awake. denies pain. o2 cont per nc. potline monitor shows sinus rhythm. #22 lfa ns infusing @ 15cchr. po fluids taken well. voids per bsc. unna boot in place. fall precautions cont.
--- NOTE | 2017-10-03 21:00 | NUR ---
up to bsc. jl well.
--- NOTE | 2017-10-03 22:00 | NUR ---
awale. no distress. development coordinator shows sinus rhythm.
--- NOTE | 2017-10-03 23:23 | NUR ---
xanax 0.25mg & ultram 100mg po given for sleep & pain.
[2017-10-04] VITALS (12 sets, daily range): BP systolic 119–153; BP diastolic 67–90
--- NOTE | 2017-10-04 02:00 | NUR ---
resting quietly. resps even & unlabored. no apparent distress. o2 cont
--- NOTE | 2017-10-04 04:00 | NUR ---
eyes closed. no distress. court monitor shows sinus rhythm.
--- NOTE | 2017-10-04 05:52 | NUR ---
awake. no resp diff. assisted to bsc. jl well.
--- NOTE | 2017-10-04 06:06 | NUR ---
lab here. blood drawn.
[2017-10-04 06:21] LABS: HEMATOCRIT 39.5 % (37.0-47.0); HEMOGLOBIN 12.6 g/dl (12.0-16.0); MEAN CELL VOLUME 95.2 fL CALC (80.0-100.0); MEAN CORPUSCULAR HGB 30.4 pG CALC (26.0-32.0); MEAN CORPUSCULAR HGB CONC 31.9 g/L CALC (32.0-36.0); RED BLOOD COUNT 4.15 mill/uL (4.20-5.60); RED CELL DISTRI WIDTH 12.9 % (11.5-15.5)
[2017-10-04 06:40] LABS: ANION GAP 18 (6-22 (CALC)); BUN 23 mg/dL (8-23); BUN/CREATININE RATIO 37 (12-20 (CALC)); CARBON DIOXIDE 26 mmol/l (22-30); CHLORIDE 102 mmol/l (95-108); CREATININE 0.6 mg/dL (0.5-1.0); GFR > 60 ML/MIN (>=60 (CALC)); GFR FOR AFR.AMER. > 60 ML/MIN (>=60 (CALC)); MAGNESIUM 2.2 mg/dL (1.6-2.3); POTASSIUM 4.8 mmol/l (3.5-5.1); SODIUM 141 mmol/l (137-146)
--- NOTE | 2017-10-04 07:25 | NUR ---
PT SITTING UP IN BED WATCHING TV, DENIES ANY PAIN AT THIS TIME, PT A & O X3, PERRL, AFEBRILE 96.6, HR 88, RESP. 20, BP 153/77, O2 97% ON 2L VIA NC, LUNG SOUNDS CLEAR IN ALL CARPIO, STRONG RADIAL PULSES, WEAK R RADIAL PULSE, GOOD CAP REFILL ON L FOOT, RAMOS BOOT REMAINS IN PLACE ON L FOOT, CD&I, ACTIVE BOWEL SOUNDS, AM ASSESSMENT COMPLETE, SEE INTERVENTIONS, SAFETY MEASURES REINFORCED, CALL BALDWIN WITHIN REACH
--- NOTE | 2017-10-04 07:35 | NUR ---
SETUP ASSISTANCE PROVIDED WITH ROSSI PFEIFFER
--- NOTE | 2017-10-04 09:00 | NUR ---
PT TO MRI VIA
--- NOTE | 2017-10-04 09:10 | NUR ---
LINENS CHANGED WHILE PT IN MRI
--- NOTE | 2017-10-04 09:55 | NUR ---
PT RETURNED FROM MRI VIA WC, ASSISTED TO THE BSC THEN TO RECLINER WITH 1 PERSON STAND BY ASSSITANCE, PT AMBULATED WITH A SLOW STEADY GAIT, PTS LEGS ELEVATED WHILE IN RECLINER, REMINDED TO CALL FOR ASSISTANCE, CALL BALDWIN WITHIN REACH
--- NOTE | 2017-10-04 10:35 | NUR ---
DR BARTON AT BEDSIDE DISCUSSING PLAN OF CARE
--- NOTE | 2017-10-04 11:35 | NUR ---
SETUP ASSISTANCE PROVIDED WITH LUNCH TRAY
--- NOTE | 2017-10-04 12:05 | NUR ---
DR TRUJILLO AT BEDSIDE DISCUSSING PLAN OF CARE AND MRI RESULTS
--- NOTE | 2017-10-04 12:50 | NUR ---
22G LF IV REMOVED DUE TO IV SITE LEEKING, NO REDNESS OR DRAINAGE AT SITE
--- NOTE | 2017-10-04 12:55 | NUR ---
NEW IV SITE STARTED 22G RAC
--- NOTE | 2017-10-04 13:45 | NUR ---
PT ASSISTED TO THE BSC AND BACK TO BED, PT AMBULATED WITH A SLOW UNSTEADY GAIT, REMINDED TO CALL FOR ASSISTANCE, CALL BALDWIN WITHIN REACH
--- NOTE | 2017-10-04 15:29 | NUR ---
S: NATA ADLER is a 62 F who presents with sepsis with cellulitis of her lower left extremity. She has a history of COPD/Asthma, urinary incontinence, GERD, chronic respiratory failure, migraines, valvular heart disease, arthritis, pre- diabetes, and lung disease. All medications in patient's chart were reviewed. O: VS: BP 134/77, P 89 , RR 18,T 96.6 W 80.824 kg, HT 160 cm, Scr= 0.6 ,CrCl= 72.5 ml/min Vancomycin trough level on 10/04/17: 17 A: Blood culture shows no growth. Wound culture shows no growth. Vancomycin trough level is within the therapeutic range. P: Patient is on Zosyn 3.375 g IV q6h. Continue Vancomycin dose of 1250 mg IV Q12H. Vancomycin trough is drawn before on 10/06/17 at 0930. Vancomycin goal trough is between 15-20 mcg/ml. Pharmacy will follow and or advise on antibiotics use as needed.
--- NOTE | 2017-10-04 15:45 | NUR ---
PT RESTING WITH EYES CLOSED, AROUSES EASILY TO VERBAL STIMULI, CALL BALDWIN WITHIN REACH
--- NOTE | 2017-10-04 17:35 | NUR ---
SETUP ASSISTANCE PROVIDED WITH PM MEAL
--- NOTE | 2017-10-04 19:10 | NUR ---
PT IN BED IN HIGHFOWLERS A/O X3, RESPIRATIONS EVEN AND UNLABORED ON O2 @2L VIA NC, NS INFUSING TO RAC AT KVO. LEFT LEG ELEVATED ON PILLOW, RAMOS BOOT IN PLACE. ADMITS TO PAIN 3/10 TO LEFT LEG, DENIES NEED FOR PAIN MEDICATION AT THIS TIME. TEMP 97.9, HR 98, B/P 121/72, O2 SAT 97%. PO FLUIDS IN REACH. WILL CONTINUE TO MONITOR.
--- NOTE | 2017-10-04 21:34 | NUR ---
ULTRAM 100MG PO PROVIDED PER MAR FOR C/O LEFT LOWER EXTREMITY PAIN 11/06.
[2017-10-05] VITALS (12 sets, daily range): BP systolic 108–137; BP diastolic 65–97
--- NOTE | 2017-10-05 | NUR ---
ZOSYN SPIKED AND INFUSING TO RAC WITH NO COMPLICATIONS. PT WATCHING TV, VOICES NO CONCERNS AT THIS TIME, DENIES PAIN, RESPIRATIONS EVEN AND UNLABORED ON O2@2L VIA NC. CALL LIGHT IN REACH.
--- NOTE | 2017-10-05 02:00 | NUR ---
RESTING WITH EYES CLOSED, RESPIRATIONS EVEN AND UNLABORED. NS INFUSING TO RAC AT KVO. CALL LIGHT IN REACH.
--- NOTE | 2017-10-05 04:10 | NUR ---
OOB TO BSC WITH ONE PERSON ASSISTANCE, VOIDING CLEAR YELLOW URINE, THEN BACK TO BED. CALL LIGHT IN REACH.
--- NOTE | 2017-10-05 06:00 | NUR ---
ZOSYN SPIKED AND INFUSING WITH NO COMPLICATIONS, RESPIRATIONS EVEN AND UNLABORED. VOICES NO CONCERNS.
[2017-10-05 07:21] LABS: HEMATOCRIT 38.8 % (37.0-47.0); HEMOGLOBIN 12.3 g/dl (12.0-16.0); MEAN CELL VOLUME 97.2 fL CALC (80.0-100.0); MEAN CORPUSCULAR HGB 30.8 pG CALC (26.0-32.0); MEAN CORPUSCULAR HGB CONC 31.7 g/L CALC (32.0-36.0); RED BLOOD COUNT 3.99 mill/uL (4.20-5.60); RED CELL DISTRI WIDTH 12.9 % (11.5-15.5)
--- NOTE | 2017-10-05 07:31 | NUR ---
pt awake in bed; assisted to bsc and back to bed; no distress noted; pt offers no complaints; assessment completed at this time; pt alert and oriented; denies pain; no n/v noted; resp even and unlabored; sob noted with exertion/ activity up to bsc; lungs clear/ diminished bases; skin color wnl; o2 per nc at 2L; moist manager inpatient cough noted; hr reg; sr on monitor; strong right pedal pulse; edema noted to ble; abd soft/ distended with bs present; no bm noted per science writer; pt denies bm since admission but states her normal to go a week at a time without bm; voiding clear yellow urine without complication; #22 in rac patent with ns infusing at 15cc/hr; no redness or edema noted at site; Unna boot intact to lle; redness has noted to slightly recede from marking; plan of care/ am meds explained; call light within reach; will continue to monitor
[2017-10-05 07:32] LABS: ANION GAP 14 (6-22 (CALC)); BUN 20 mg/dL (8-23); BUN/CREATININE RATIO 33 (12-20 (CALC)); CARBON DIOXIDE 29 mmol/l (22-30); CHLORIDE 102 mmol/l (95-108); CREATININE 0.6 mg/dL (0.5-1.0); GFR > 60 ML/MIN (>=60 (CALC)); GFR FOR AFR.AMER. > 60 ML/MIN (>=60 (CALC)); POTASSIUM 4.3 mmol/l (3.5-5.1); SODIUM 140 mmol/l (137-146)
--- NOTE | 2017-10-05 08:01 | NUR ---
awake in bed; eating breakfast; no distress noted; pt offers no complaints; no distress noted; sr on monitor; o2 per nc; call light within reach; will continue to monitor
--- NOTE | 2017-10-05 08:50 | NUR ---
Dr Wilson at bedside; Unna boot removed per MD request to assess lle; redness noted to have improved; blisters filled with serous drainage noted to inner LLE; Unna boot to reapplied; pt denies needs at this time; lle elevated on pillow; call light within reach;
--- NOTE | 2017-10-05 10:15 | NUR ---
awake; assisted to bsc; voiding lg amounts of clear yellow urine; iv patent; fluids/abt infusing without complication; no redness or edema noted at site; o2 per nc; sr on monitor; denies needs/ pain; call light within reach; will continue to monitor
--- NOTE | 2017-10-05 11:10 | NUR ---
Dr Dupont at bedside to assess leg and discuss plan of care; Unna boot to be reapplied
--- NOTE | 2017-10-05 11:20 | NUR ---
pt transported to radiology department via wc with portable o2 in stable condition;
--- NOTE | 2017-10-05 11:50 | NUR ---
pt received back to icu via wc in stable condition;
--- NOTE | 2017-10-05 12:04 | NUR ---
awake in bed; no distress noted; pt offers no complaints; #22 removed from rac with catheter tip intact; dual lumen mid line flushed and patent to lidia; ivf/abt continued; lle elevated on pillow; o2 per nc; st on monitor; call light within reach; will continue to monitor
--- NOTE | 2017-10-05 14:11 | NUR ---
awake in bed; no distress noted; o2 per nc; iv patent; visitors at bedside; sr on monitor; call light within reach; will continue to monitor
--- NOTE | 2017-10-05 15:02 | NUR ---
awake; Unna boot reapplied to lle with conor wrap to secure; pt tolerated well; will continue to monitor
--- NOTE | 2017-10-05 15:58 | NUR ---
awake; assist to bsc; no distress noted; pt offers no complaints; iv patent; no redness or edema noted at site; sr on monitor; complete linen change/ bath done; call light within reach; will continue to monitor
--- NOTE | 2017-10-05 18:03 | NUR ---
awake in recliner; no distress noted; pt offers no complaints; iv patent; no redness or edema noted at site; st on monitor; o2 per nc; call light within reach
--- NOTE | 2017-10-05 18:19 | NUR ---
ASSIST BACK TO BED;
--- NOTE | 2017-10-05 19:30 | NUR ---
PT IN BED A/O X3, RESPIRATIONS EVEN AND UNLABORED ON O2 @2L VIA NC, NS INFUSING TO JORGE L MIDLINE AT 15CC/HR. LEFT LEG ELEVATED ON PILLOW, UNNA BOOT IN PLACE. DENIES PAIN. TELE READING SR 90'S, B/P 129/68, O2 SAT 97%. ENCOURAGED TO USE CALL LIGHT FOR ASSISTANCE, WILL CONTINUE TO MONITOR.
--- NOTE | 2017-10-05 21:19 | NUR ---
ULTRAM 100MG PROVIDED FOR C/O LLE PAIN.
[2017-10-06] VITALS (8 sets, daily range): BP systolic 107–140; BP diastolic 64–80
--- NOTE | 2017-10-06 | NUR ---
ZOSYN SPIKED AND INFUSING WITH NO COMPLICATIONS, RESPIRATIONS EVEN AND UNLABORED. CALL LIGHT IN REACH.
--- NOTE | 2017-10-06 02:03 | NUR ---
TYLENOL AND ULTRAM PROVIDED FOR LLE PAIN 11/06.
--- NOTE | 2017-10-06 04:15 | NUR ---
MORNING LABS DRAWN BY VENETIAN BLIND INSTALLER, TOLERATED WELL. OOB TO BSC WITH STAND BY ASSISTANCE, VOIDING 700CC OF CLEAR YELLOW URINE THEN BACK TO BED. CALL LIGHT IN REACH, RESPIRATIONS EVEN AND UNLABORED ON O2 @2L VIA NC, O2 SAT 94%.
[2017-10-06 04:19] LABS: HEMATOCRIT 37.1 % (37.0-47.0); HEMOGLOBIN 11.7 g/dl (12.0-16.0); MEAN CELL VOLUME 95.9 fL CALC (80.0-100.0); MEAN CORPUSCULAR HGB 30.2 pG CALC (26.0-32.0); MEAN CORPUSCULAR HGB CONC 31.5 g/L CALC (32.0-36.0); RED BLOOD COUNT 3.87 mill/uL (4.20-5.60); RED CELL DISTRI WIDTH 12.9 % (11.5-15.5)
[2017-10-06 04:32] LABS: ANION GAP 7 (6-22 (CALC)); BUN 22 mg/dL (8-23); BUN/CREATININE RATIO 33 (12-20 (CALC)); CARBON DIOXIDE 35 mmol/l (22-30); CHLORIDE 98 mmol/l (95-108); CREATININE 0.7 mg/dL (0.5-1.0); GFR > 60 ML/MIN (>=60 (CALC)); GFR FOR AFR.AMER. > 60 ML/MIN (>=60 (CALC)); POTASSIUM 4.2 mmol/l (3.5-5.1); SODIUM 136 mmol/l (137-146)
--- NOTE | 2017-10-06 07:10 | NUR ---
pt awake in bed; no distress noted; pt offers no complaints; assessment completed at this time; pt alert and oriented; denies pain at current; no n/v noted; resp even and unlabored; lungs clear/ diminished left base; skin color wnl; o2 per nc at 2L; support director moist cough noted; hr reg; strong pulses; edema noted to ble; sr on monitor; abd soft/ distended with bs present; pt denies bm; pt admits to voiding without complication; no urine to inspect at this time; bsc; dual lumen midline patent to lidia; no redness or edema noted at site; dressing cdi; Unna boot present to lle with conor wrap intact; plan of care/ am meds explained; call light within reach; will continue to monitor
--- NOTE | 2017-10-06 08:01 | NUR ---
Dr Russell present at bedside to assess pt; order received for Jose orantes to be changed q3 days; pt offers no complaints; sr on monitor; o2 per nc; call light within reach; will continue to monitor
--- NOTE | 2017-10-06 09:15 | NUR ---
Dr Wilson at bedside to assess pt and discuss plan of care; Unna boot removed per MD request request and reapplied; redness continues; am meds explained and administered; made aware of no bm since admission; pt educated on need for transfer; Chelsea called per this tag writer as per pt request; updated family on plan of care/transfer; call light within reach; will continue to monitor
--- NOTE | 2017-10-06 10:00 | NUR ---
awake; up to bsc; no distress noted; resp even and unlabored; iv patent; no redness or edema noted at site; sr on monitor; o2 per nc; pt denies pain at this time; call light within reach; will continue to monitor
--- NOTE | 2017-10-06 11:40 | NUR ---
call received from [facility]-pt lynn Martinez; information/report provided; facesheet to be faxed as per request; awaiting bed assignment
--- NOTE | 2017-10-06 12:00 | NUR ---
pt awake in bed; no distress noted; pt offers no complaints; iv patent; fluids infusing without complication; no redness or edema noted at site; sr on monitor; o2 per nc; afebrile; eating lunch; call light within reach; will continue to monitor
--- NOTE | 2017-10-06 13:30 | NUR ---
ROSAS FROM [facility] CALLED WITH ROOM ASSIGNMENT [id number], REPORT TO BE CALLED TO [phone], ACCEPTING PHYSICIAN DR MIRANDA
--- NOTE | 2017-10-06 13:52 | NUR ---
[facility] transport Kimmy called for transfer; information provided; ETA 20-30 minutes
--- NOTE | 2017-10-06 14:03 | NUR ---
awake; offers no complaints; pt explained ETA for transport; assist to bsc; iv flushed and heparinized; no redness or edema noted at site; o2 per nc; sr on monitor; pt denies pain/ needs at this time; pt belongings packed (clothing, cough drops, mario-dur, haor brush) and to be sent with pt; vss; call light within reach; will continue to monitor
--- NOTE | 2017-10-06 14:25 | NUR ---
[facility] transport on unit to receive pt; report given; pt released with transport in stable condition transferring to [facility]; pt belongings released with pt;
--- NOTE | 2017-10-06 14:33 | NUR ---
daughter in law Chelsea called as per request; informed pt has been transferred;
--- NOTE | 2017-10-06 14:55 | NUR ---
report called to [facility] at [phone]; ICU direct number provided for any additional question/information
== END 2017-10-06 14:25 | disposition short-term general hospital (02) | DRG 871 ==
LOC: ED 22:57 → ED-I 09-29 02:00 → ED 09-29 02:33 → ICU 09-29 02:34
PROVIDERS: Emergency Medicine; Internal Medicine; Nurse Practitioner; ADMIT Internal Medicine; ATTEND Internal Medicine
PROC: 2W1RX6Z Compression of Left Lower Leg using Pressure Dressing (ICD-10-PCS; principal; 2017-10-03)
PROC: 05HB33Z Insertion of Infusion Device into Right Basilic Vein, Percutaneous Approach (ICD-10-PCS; 2017-10-05)
PROC: B51MZZA Fluoroscopy of Right Upper Extremity Veins, Guidance (ICD-10-PCS; 2017-10-05)
DX: A41.9 Sepsis, unspecified organism (principal); J96.21 Acute and chronic respiratory failure with hypoxia; Z99.81 Dependence on supplemental oxygen; J44.1 Chronic obstructive pulmonary disease with (acute) exacerbation; L03.116 Cellulitis of left lower limb; R65.20 Severe sepsis without septic shock; K21.9 Gastro-esophageal reflux disease without esophagitis; R73.03 Prediabetes; I87.2 Venous insufficiency (chronic) (peripheral); Z95.820 Peripheral vascular angioplasty status with implants and grafts; Z87.891 Personal history of nicotine dependence
CPT/HCPCS: A9579; J1650; J3370; Q9967

== ENCOUNTER 2017-12-07 11:04 | Emergency (ER) | payer OTHER ==
[~2017-12-07] VITALS: Ht 160 cm; Wt 75.0 kg
[~2017-12-07 11:04] MED LIST changes: +MELOXICAM15 MG PO
[2017-12-07 11:47] LABS: IMMATURE GRANULOCYTES 0.5 % (0.0-5.0); MEAN CELL VOLUME 94.4 fL CALC (80.0-100.0); MEAN CORPUSCULAR HGB 31.2 pG CALC (26.0-32.0); MEAN CORPUSCULAR HGB CONC 33.1 g/L CALC (32.0-36.0); NEUT# 5.65 thou/uL (2.00-7.15); RED BLOOD COUNT 4.45 mill/uL (4.20-5.60)
[2017-12-07 11:48] LABS: HEMOGLOBIN 13.9 g/dl (12.0-16.0)
[2017-12-07 11:58] LABS: ALBUMIN 4.4 g/dL (3.2-5.0); ALKALINE PHOSPHATASE 116 u/l (38-126); ANION GAP 13 (6-22 (CALC)); BILIRUBIN, TOTAL 0.5 mg/dL (0.0-1.4); BUN 17 mg/dL (8-23); BUN/CREATININE RATIO 27 (12-20 (CALC)); CARBON DIOXIDE 30 mmol/l (22-30); CHLORIDE 102 mmol/l (95-108); CREATININE 0.6 mg/dL (0.5-1.0); GFR > 60 ML/MIN (>=60 (CALC)); GFR FOR AFR.AMER. > 60 ML/MIN (>=60 (CALC)); POTASSIUM 4.2 mmol/l (3.5-5.1); SGOT/AST 34 u/l (9-36); SGPT/ALT 46 u/l (11-66); SODIUM 141 mmol/l (137-146); TOTAL PROTEIN 7.9 g/dL (6.3-8.2)
[2017-12-07 12:07] LABS: MYOGLOBIN 26 ng/mL (0 - 62)
[2017-12-07 12:13] LABS: PROTHROMBIN TIME 10.6 SECONDS (9.0-12.5)
[2017-12-07] MEDS ORDERED: BACTRIM DS1 TAB PO (14:12)
[2017-12-07 14:15] VITALS: BP 132/72
== END 2017-12-07 14:30 | disposition home or self-care (01) ==
LOC: ED 11:04 → ED-I 11:47 → ED 14:30
PROVIDERS: Emergency Medicine
DX: L03.116 Cellulitis of left lower limb (principal); I10 Essential (primary) hypertension; E11.9 Type 2 diabetes mellitus without complications; M19.90 Unspecified osteoarthritis, unspecified site; J44.9 Chronic obstructive pulmonary disease, unspecified; M79.89 Other specified soft tissue disorders; M79.605 Pain in left leg

== ENCOUNTER 2018-06-04 19:18 | Emergency (ER) | payer MEDICARE, OTHER ==
[~2018-06-04] VITALS: Ht 160 cm; Wt 78.0 kg
[2018-06-04] MEDS ORDERED: PANTOPRAZOLE SO40 MG PO (19:46)
[2018-06-04] MEDS ORDERED: ALENDRONATE70 MG PO (19:47)
[2018-06-04] MEDS ORDERED: LOSARTAN POTASS1 TA1 PO (19:49)
[2018-06-04] MEDS ORDERED: MOTRIN200 MG PO (19:50)
[2018-06-04 19:55] LABS: HEMATOCRIT 41.4 % (37.0-47.0); HEMOGLOBIN 13.6 g/dl (12.0-16.0); IMMATURE GRANULOCYTES 0.4 % (0.0-5.0); MEAN CELL VOLUME 94.1 fL CALC (80.0-100.0); MEAN CORPUSCULAR HGB 30.9 pG CALC (26.0-32.0); MEAN CORPUSCULAR HGB CONC 32.9 g/L CALC (32.0-36.0); NEUT# 7.57 thou/uL (2.00-7.15); RED BLOOD COUNT 4.4 mill/uL (4.20-5.60); RED CELL DISTRI WIDTH 12.6 % (11.5-15.5)
[2018-06-04 20:02] LABS: ALBUMIN 4.6 g/dL (3.2-5.0); ALKALINE PHOSPHATASE 129 u/l (38-126); ANION GAP 16 (6-22 (CALC)); BILIRUBIN, TOTAL 0.6 mg/dL (0.0-1.4); BUN 14 mg/dL (8-23); BUN/CREATININE RATIO 23 (12-20 (CALC)); CARBON DIOXIDE 27 mmol/l (22-30); CHLORIDE 99 mmol/l (95-108); CREATININE 0.6 mg/dL (0.5-1.0); GFR > 60 ML/MIN (>=60 (CALC)); GFR FOR AFR.AMER. > 60 ML/MIN (>=60 (CALC)); POTASSIUM 3.6 mmol/l (3.5-5.1); SGOT/AST 33 u/l (9-36); SODIUM 139 mmol/l (137-146); TOTAL PROTEIN 8.3 g/dL (6.3-8.2)
[2018-06-04 20:13] LABS: MYOGLOBIN 36 ng/mL (0 - 62)
[2018-06-04 21:04] LABS: BARBITURATES NEGATIVE (NEGATIVE); COCAINE NEGATIVE (NEGATIVE); METHADONE NEGATIVE (NEGATIVE); OXCYCODONE NEGATIVE (NEGATIVE); TETRAHYDROCANNABIONOL NEGATIVE (NEGATIVE); TRICYLIC ANTIDEPRESSANTS NEGATIVE (NEGATIVE)
[2018-06-04 21:06] LABS: URINE BILIRUBIN - DIPSTICK NEGATIVE (NEGATIVE); URINE BLOOD DIPSTICK NEGATIVE (NEGATIVE); URINE COLOR YELLOW; URINE GLUCOSE - DIPSTICK NEGATIVE (NEGATIVE); URINE KETONE NEGATIVE (NEGATIVE); URINE NITRITE - DIPSTICK NEGATIVE (Negative); URINE PROTEIN - DIPSTICK NEGATIVE (NEG-TRACE); URINE SPECIFIC GRAVITY <=1.005; URINE UROBILINOGEN - DIPSTICK 0.2 E.U./dL (0.2)
[2018-06-04 21:07] LABS: URINE LEUK ESTERASE SMALL (NEGATIVE)
[2018-06-04 21:17] LABS: URINE RBC 0-2 RBC/hpf (0-5); URINE SQUAMOUS EPITHELIAL CELL FEW EPI/hpf (0-FEW)
[2018-06-04 21:18] LABS: URINE BACTERIA FEW hpf
[2018-06-04] MEDS ORDERED: ZOFRAN ODT4 MG PO (21:25)
[2018-06-04] MEDS ORDERED: ANTIVERT PO (21:25)
[2018-06-04] MEDS ORDERED: CIPROFLOXACN500 MG PO (21:25)
[2018-06-04 21:54] VITALS: BP 147/81
== END 2018-06-04 22:04 | disposition home or self-care (01) ==
LOC: ED 19:18
PROVIDERS: Emergency Medicine
DX: R42 Dizziness and giddiness (principal); N39.0 Urinary tract infection, site not specified; J44.9 Chronic obstructive pulmonary disease, unspecified; I10 Essential (primary) hypertension; E11.9 Type 2 diabetes mellitus without complications; M19.90 Unspecified osteoarthritis, unspecified site; I38 Endocarditis, valve unspecified

== ENCOUNTER 2019-02-19 13:05 | Emergency (ER) | payer MEDICARE, OTHER ==
[~2019-02-19] VITALS: Ht 160 cm; Wt 84.1 kg
[~2019-02-19 13:05] MED LIST changes: +ALENDRONATE70 MG PO; +ANTIVERT PO; +CIPROFLOXACN500 MG PO; +LOSARTAN POTASS1 TA1 PO; +MOTRIN200 MG PO; +PANTOPRAZOLE SO40 MG PO
[2019-02-19 15:23] VITALS: BP 158/70
== END 2019-02-19 15:38 | disposition home or self-care (01) ==
LOC: ED 13:05
DX: S30.0XXA Contusion of lower back and pelvis, initial encounter (principal); I10 Essential (primary) hypertension; E11.9 Type 2 diabetes mellitus without complications; J44.9 Chronic obstructive pulmonary disease, unspecified; W19.XXXA Unspecified fall, initial encounter

== ENCOUNTER 2019-07-26 14:53 | Inpatient (IN) | payer MEDICARE, OTHER ==
[~2019-07-26] VITALS: Ht 160 cm; Wt 82.0 kg
[~2019-07-26 14:53] MED LIST changes: -DITROPAN PO; +DITROPAN5 MG/TA1 PO
[2019-07-26] MEDS ORDERED: MONTELUKAST SOD10 MG PO (15:17)
[2019-07-26] MEDS ORDERED: AMOX/K CLAV875 M1 PO (15:19)
[2019-07-26] MEDS ORDERED: LOSARTAN POTAS100 MG PO (15:19)
--- NOTE | 2019-07-26 15:19 | NUR ---
PT ALERT/ORIENTED, NO DISTRESS AT THIS TIME
[2019-07-26] MEDS ORDERED: MOTRIN800 MG PO (15:20)
[2019-07-26] MEDS ORDERED: HYDROCHLOROT12.5 M1 PO (15:20)
[2019-07-26] MEDS ORDERED: SYMBICORT 80-4.5MCG IN (15:22)
[2019-07-26] MEDS ORDERED: INCRUSE EL62.5 MCG/I IN (15:22)
[2019-07-26] MEDS ORDERED: ALLERGY NA50 MCG/ACT NAB (15:23)
[2019-07-26 15:27] LABS: HEMATOCRIT 40.7 % (37.0-47.0); HEMOGLOBIN 12.7 g/dl (12.0-16.0); IMMATURE GRANULOCYTES 0.5 % (0.0-5.0); MEAN CELL VOLUME 92.1 fL CALC (80.0-100.0); MEAN CORPUSCULAR HGB 28.7 pG CALC (26.0-32.0); MEAN CORPUSCULAR HGB CONC 31.2 g/dL CAL (32.0-36.0); NEUT# 7.56 thou/uL (2.00-7.15); RED BLOOD COUNT 4.42 mill/uL (4.20-5.60); RED CELL DISTRI WIDTH 13.8 % (11.5-15.5)
[2019-07-26 15:39] LABS: ALBUMIN 4.3 g/dL (3.2-5.0); ALKALINE PHOSPHATASE 123 u/l (38-126); ANION GAP 14 (6-22 (CALC)); BILIRUBIN, TOTAL 0.7 mg/dL (0.0-1.4); BUN 17 mg/dL (8-23); BUN/CREATININE RATIO 32 (12-20 (CALC)); CARBON DIOXIDE 26 mmol/l (22-30); CHLORIDE 102 mmol/l (95-108); CREATININE 0.5 mg/dL (0.5-1.0); GFR > 60 ML/MIN (>=60 (CALC)); GFR FOR AFR.AMER. > 60 ML/MIN (>=60 (CALC)); SGOT/AST 32 u/l (9-36); SODIUM 137 mmol/l (137-146); TOTAL PROTEIN 8.1 g/dL (6.3-8.2)
[2019-07-26 15:40] LABS: POTASSIUM 4.5 mmol/l (3.5-5.1)
--- NOTE | 2019-07-26 15:40 | NUR ---
[id number] SWAB OBTAINED PER DR. VILLALPANDO
[2019-07-26 15:41] LABS: C-REACTIVE PROTEIN < 0.5 mg/dL (0-0.9)
--- NOTE | 2019-07-26 16:14 | NUR ---
PT RESTING QUIETLY ON STRETCHER, WATCHING TV, NO DISTRESS NOTED, PT STATES FEELS MUCH BETTER. SATS 95%.
--- NOTE | 2019-07-26 16:53 | NUR ---
PT UP TO BEDSIDE COMMODE WITH 250CC URINE OUTPUT WITH LIGHT YELLOW URINE
--- NOTE | 2019-07-26 16:54 | NUR ---
PT REQUESTING FAMILY MEMBER BE CALLED TO BE ABLE TO NOTIFY THEM THAT SHE IS BEING ADMITTED SO THEY COULD COME SEE HER ON MED SURG. ADVISED THAT AT THIS TIME WE WERE LIMITING VISITORS WHILE ADMITTED. PT STATES UNDERSTANDS.
--- NOTE | 2019-07-26 17:07 | NUR ---
ROOM PT IS GOING IN IS NOT READY WILL WAIT UNTIL ROOM HAS BEEN CLEANED
[2019-07-26 17:26] LABS: URINE BILIRUBIN - DIPSTICK NEGATIVE (NEGATIVE); URINE BLOOD DIPSTICK NEGATIVE (NEGATIVE); URINE COLOR YELLOW; URINE GLUCOSE - DIPSTICK NEGATIVE (NEGATIVE); URINE KETONE NEGATIVE (NEGATIVE); URINE LEUK ESTERASE NEGATIVE (NEGATIVE); URINE NITRITE - DIPSTICK NEGATIVE (Negative); URINE PH 5.5 (4.5-8.0); URINE PROTEIN - DIPSTICK NEGATIVE (NEG-TRACE); URINE SPECIFIC GRAVITY 1.015; URINE UROBILINOGEN - DIPSTICK 0.2 E.U./dL (0.2)
--- NOTE | 2019-07-26 17:40 | NUR ---
PT REPORT GIVEN AND PT TAKEN TO FLOOR PER STRETCHER WITH TELEMETRY
[2019-07-26 17:50] VITALS: BP 148/63
--- NOTE | 2019-07-26 21:02 | NUR ---
PHYSICAL ASSESMENT COMPLETE. LAST SET OF VS TAKEN @ 1805 ASSESED. PT AFEBRILE, PRIMARY HEMODYNAMICS STABLE/WNL. RESP REG & UNLABORED. PT AWAKE, ALERT AND PLEASANT. PLAN OF CARE REVIEWED W/ PT, PT VERBALIZES UNDERSTANDING, DENIES QUESTIONS @ THIS TIME. PT REQUEST SNACK, HS SNACK PROVIDED PER PTS REQUEST. PT DENIES FURTHER NEEDS @ THIS TIME. BED LOCKED IN LOW POSITION W/ BEDRAILS UPX2, ITEMS WITHIN REACH. AIRBORNE/CONTACT ISOLATION IN PLACE W/ NEGATIVE PRESSURE. CALL BALDWIN WITHIN REACH. AGREES TO CALL PRN.
[2019-07-27 00:04] VITALS: BP 122/59
--- NOTE | 2019-07-27 01:30 | NUR ---
VS TAKEN BY JOSE @0002 ASSESED. PT AFEBRILE, PRIMARY HEMODYNAMICS STABLE/WNL. RESP REG & UNLABORED. PT C/O THROBBING H/A 08/07, PRN APAP ADMINISTERED SEE MAR FOR ADMIN AND F/U. BED LOCKED IN LOW POSITION W/ BEDRAILS UPX2, ITEMS WITHIN REACH. AIRBORNE/CONTACT ISOLATION IN PLACE W/ NEGATIVE PRESSURE. CALL BALDWIN WITHIN REACH. AGREES TO CALL PRN.
[2019-07-27 04:15] VITALS: BP 143/75
--- NOTE | 2019-07-27 05:20 | NUR ---
VS TAKEN BY JOSE @1739 ASSESED. PT AFEBRILE, PRIMARY HEMODYNAMICS STABLE/WNL. RESP REG & UNLABORED. PT IS RESTING IN BED COMFORTABLY AND DENIES NEEDS @ THIS TIME. AM BLOOD WORK DRAWN AND SENT TO LAB. BED LOCKED IN LOW POSITION W/ BEDRAILS UPX2, ITEMS WITHIN REACH. AIRBORNE/CONTACT ISOLATION IN PLACE W/ NEGATIVE PRESSURE. CALL BALDWIN WITHIN REACH. AGREES TO CALL PRN.
[2019-07-27 05:32] LABS: HEMATOCRIT 37.4 % (37.0-47.0); HEMOGLOBIN 11.6 g/dl (12.0-16.0); IMMATURE GRANULOCYTES 0.2 % (0.0-5.0); MEAN CELL VOLUME 93.5 fL CALC (80.0-100.0); NEUT# 5.39 thou/uL (2.00-7.15); RED CELL DISTRI WIDTH 13.6 % (11.5-15.5)
[2019-07-27 05:46] LABS: ALBUMIN 3.5 g/dL (3.2-5.0); ALKALINE PHOSPHATASE 103 u/l (38-126); ANION GAP 10 (6-22 (CALC)); BILIRUBIN, TOTAL 0.6 mg/dL (0.0-1.4); BUN 19 mg/dL (8-23); BUN/CREATININE RATIO 31 (12-20 (CALC)); CARBON DIOXIDE 28 mmol/l (22-30); CHLORIDE 102 mmol/l (95-108); CREATININE 0.6 mg/dL (0.5-1.0); GFR > 60 ML/MIN (>=60 (CALC)); GFR FOR AFR.AMER. > 60 ML/MIN (>=60 (CALC)); POTASSIUM 4.3 mmol/l (3.5-5.1); SGOT/AST 23 u/l (9-36); SODIUM 137 mmol/l (137-146); TOTAL PROTEIN 6.7 g/dL (6.3-8.2)
--- NOTE | 2019-07-27 07:10 | NUR ---
REPORT REC FROM [facility] [employer]
--- NOTE | 2019-07-27 08:11 | NUR ---
PT SITTING IN BED. A&O X3. NO DISTRESS NOTED. O2 VIA NC @ 2 L AVAILABLE IF PT WAS TO NEED IT, PER PT SHE SOMETIMES USES IT AT HOME. REDNESS NOTED TO BLE BUT PALPABLE PULSES NOTED. ASSISTED PT TO BSC, SLOW STEADY GAIT OBSERVED. NO OTHER NEEDS AT THIS TIME. ASSESSMENT COMPLETED. CALL LIGHT IN REACH. CONTINUE TO MONITOR
[2019-07-27 08:12] VITALS: BP 176/84
[2019-07-27 11:00] VITALS: BP 123/66
--- NOTE | 2019-07-27 11:54 | NUR ---
BRIANA NOONAN AT BEDSIDE DISCUSSING POC
--- NOTE | 2019-07-27 12:07 | NUR ---
AT BEDSIDE DISCUSSING POC.
--- NOTE | 2019-07-27 13:06 | NUR ---
PT SITTING IN BED WATCHING TV. MUCINEX GIVEN TO ASSIST WITH CONGESTION. CALL LIGHT IN REACH. CONTINUE TO MONITOR
[2019-07-27 15:50] VITALS: BP 119/62
--- NOTE | 2019-07-27 16:20 | NUR ---
PT INFORMED THAT SPUTUM SAMPLE NEEDED, CUP PROVIDED. PT VERBALIZED UNDERSTANDING.
[2019-07-27 20:00] VITALS: BP 140/78
--- NOTE | 2019-07-27 21:00 | NUR ---
PATIENT RESTING IN BED WITH HOB ELEVATED AND O2 VIA NASAL CANNULA IN PLACE AT 2LPM. PATIENT WITH EYES CLOSED BUT EASY TO AROUSE. PATIENT IS AWAKE ALERT AND ORIENTEDX2. NO COMPLAINTS AT THIS TIME. TELE MONITOR INPLACE. PATIENT IS UP TO THE BSC TO VOID YELLOW URINE. NO BM TODAY. PATIENT IS ON ISOLATION IN NEG PRESSURE ROOM. AWAITING COVID 19 TEST RESULTS. PATIENT WITH LOOSE COUGH BUT UNABLE TO EXPECTORATE ANY SECREATIONS. INSTRUCTED ON NEED FOR SPUTUM SPEC WITH CONTAINER LEFT AT BEDSIDE. VRBALIZES UNDERSTANDING. IVF NS PATENT ANDINFUSING VIA RIGHT AC SITE AT 100CC/HR. SAFETY PRECAUTIONS REINFORCED. ICE CREAM PROVIDED PER PATIENT REQUEST. CALL LIGHT IN REACH. WILL CONT TO MONITOR.
--- NOTE | 2019-07-28 | NUR ---
PATIENT RESTING IN BED WITH O2 VIA NASAL CANNULA IN PLACE. EYES CLOSED. RESPS ARE EVEN AND UNLABORED. VS TAKEN AND RECORDED. IVF PATENT AND INFUSING VIA RIGHT AC SITE AT 100CC/HR. TELE MONITOR INPLACE. CALL LIGHT IN REACH. WILL CONT TO MONITOR.
[2019-07-28 00:30] VITALS: BP 127/69
--- NOTE | 2019-07-28 01:37 | NUR ---
PATIENT CALLED FOR MIN ASSIST FROM BED TO BSC. PATIENT VOIDED 1000CC OF YELLOW URINE. ASSISTED BACK TO BED. O2 VIA NASAL CANNULA REMAINS IN PLACE. TELE MONITOR IN PLACE. PATIENT WITH LOOSE COUGH BUT STILL NOT ABLE TO EXPECTORATE SAMPLE FOR SPUTUM SPEC. IVF PATENT AND INFUING VIA RIGHT AC SITE AT 100CC/HR, SITE REMAINS HEALTHY. PATIENT REMAINS ON ISOLATION IN NEG PRESSURE ROOM. SAFETY PRECAUTIONS REINFORCED. CALL LIGHT IN REACH. WILL CONT TO MONITOR.
--- NOTE | 2019-07-28 04:20 | NUR ---
PATIENT CALLED FOR ASSIST TO BSC-O2 VIA NASAL CANNULA INPLACE. TELE MONITOR IN PLACE. IVF NS PATENT AND INFUSING VIA RAC SITE AT 100CC/HR. REMAINS ON ISOLATION IN NEG PRESSURE ROOM. PATIENT SITTING ON BSC-THINKS SHE MAY HAVE BM. CALL LIGHT IN REACH. WILL CONT TO MONITOR.
--- NOTE | 2019-07-28 06:00 | NUR ---
PATIENT RESTING IN BED-PATIENT HAD MODERATE BROWN SOFT STOOL AND VOIDED QS YELLOW URINE. TELE MONITOR INPLACE. O2 VIA NASAL CANNULA IN PLACE.
--- NOTE | 2019-07-28 06:00 | NUR ---
PATIENT BACK IN BED-HAD MODERATE AMT OF BROWN STOOL AND VOIDED QS YELLOW URINE. TELE MONITOR IN PLACE. O2 VIA NASAL CANNULA IN PLACE. IVF NS PATENT AND INFUSING VIA RIGHT AC SITE AT 100CC/HR. PATIENT REMAINS ON ISOLATION WITH COVID PENDING. PATIENT IN NEG PRESSURE ROOM. STILL WITH NON-PRODUCTIVE COUGH, PATIENT AWARE OF NEED FOR SAMPLE FOR C&S. SAFETY PRECAUTIONS REINFORCED. CALL LIGHT IN REACH. WILL CONT TO MONITOR.
[2019-07-28 06:06] VITALS: BP 131/76
--- NOTE | 2019-07-28 07:20 | NUR ---
REPORT RECEIVED FROM DAMIÁN CHAPPELL. PT SITTING UP ON EDGE OF BED; ALERT AND ORIENTED. DENIES PAIN. RESPIRATIONS EVEN AND UNLABORED ON OXYGEN 2L VIA NC; PT REPORTS ONLY WEARING IT AT HOME AT HS AND PRN. LUNGS DIMINISHED. DISCOLORATION TO BILATERAL FEET. PLAN OF CARE REVIEWED. PT ENCOURAGED TO VERBALIZE CONCERNS. STATES UNDERSTANDING. SAFETY MEASURES IN PLACE. CALL LIGHT WITHIN REACH.
[2019-07-28 08:00] VITALS: BP 162/90
--- NOTE | 2019-07-28 11:20 | NUR ---
BRIANA, ADVERTISING PROJECT MANAGER AT BEDSIDE.
[2019-07-28 11:58] VITALS: BP 143/88
--- NOTE | 2019-07-28 13:15 | NUR ---
DR. BARTON AT BEDSIDE TO DISCUSS POC AND DISCHARGE. COVID TEST RESULTS STILL PENDING. PT INDEPENDENT TO BSC. IV FLUIDS INFUSING WITHOUT DIFFICULTY; IV SITE APPEARS HEALTHY.
--- NOTE | 2019-07-28 15:22 | NUR ---
DAUGHTER DROPPED OFF PERSONAL BELONGINGS TO PT; PT IV LEAKING. ABT PAUSED AT THIS TIME AND NEW GOWN GIVEN.
--- NOTE | 2019-07-28 15:37 | NUR ---
NEW IV SITE PLACED TO LFA; ZITHROMAX NOW INFUSING WITHOUT DIFFICULTY. NO REQUESTS OR CONCERNS AT THIS TIME. CALL LIGHT WITHIN REACH.
[2019-07-28 15:53] VITALS: BP 127/71
[2019-07-28 19:00] VITALS: BP 141/65
--- NOTE | 2019-07-28 20:30 | NUR ---
PATIENT RESTING IN BED AT THIS TIME WITH HOBV ELEVATED AND O2 VIA NASAL CANNULA IN PLACE. PATIENT IS ON ISOLATION IN NEG PRESSURE ROOM-AWAITING COVID 19 TESTING RESULTS. PATIENT IS AWAKE ALERT AND ORIENTEDX3. NO COMPLAINTS AT THIS TIME. TELE MONITOR IN PLACE. UP TO THE BSC TO VOID CLEAR YELLOW URINE. HAD 2 BM'S TODAY PER PATIENT. IVF NS PATENT AND INFUSING VIA LEFT FOREARM SITE AT KVO RATE. SITE IS HEALTHY AT THIS TIME. SAFETY PREAUTIONS REINFORCED. CALL LIGHT IN REACH. WILL CONT TO MONITOR.
[2019-07-29] VITALS (7 sets, daily range): BP systolic 116–164; BP diastolic 64–87
--- NOTE | 2019-07-29 00:37 | NUR ---
PATIENT RESTING IN BED AT THIS TIME WITH O2 VIA NASAL CANNULA IN PLACE. TELE MONITOR IN PLACE. PATIENT C/O PAIN TO BOTH KNEES-MEDICATED WITH TYLENOL 650MG PO FOR PAIN. IVF PATENT AND INFUSING VIA LEFT FOREARM SITE. SITE REMAINS HEATHY. PATIENT REMAINS ON ISOLATION IN NEG PRESSURE ROOM. SAFETY PRECAUTIONS REINFORCED. ALL IGHT IN REACH. WILL CONT TO MONITOR.
--- NOTE | 2019-07-29 04:28 | NUR ---
PATIENT RESTING IN BED WITH HOB ELEVATED AND O2 VIA NASAL CANNULA IN PLACE. RESP ARE EVEN AND UNLABORED. TELE MONITOR IN PLACE AND READING SR-72 WITH PVC'S. IVF NS PATENT AND INFUSING AT KVO RATE VIA LEFT FOREARM SITE. SITE REMAINS HEALTHY AT THI TIME. PATIENT REMAINS ON ISOLATION IN NEG PRESSURE ROOM-AWAITING COVID 19 TEST RESULTS. CALL LIGHT IN REACH. WILL CONT TO MONITOR.
--- NOTE | 2019-07-29 06:37 | NUR ---
RECIEVED CALL FROM MOLLY HEATH IN LAB-COVID 19 TESTING NEG. WILL PASS IT ON TO ONCOMING SHIFT.
--- NOTE | 2019-07-29 07:10 | NUR ---
REPORT RECEIVED FROM DAMIÁN CHAPPELL
--- NOTE | 2019-07-29 08:30 | NUR ---
PT RESTING IN SEMI FOWLERS POSITION WATCHING TV,A&O X3;VS OBTAINED AND ASSESSMENT COMPLETED;PT DENIES ANY CURRENT PAIN OR DISCOMFORTS,PAIN SCALE AND REPORTING EDUCATED;RESPIRATIONS EVEN AND UNLABORED ON O2 @ 2L VIA NC,DIMINISHED LUNG SOUNDS;PT REPORTS NON-PRODUCTIVE COUGH;ABDOMEN SOFT ON PALPATION AND ACTIVE IN ALL 4 QUADRANTS;WEAK PEDAL PULSES;SKIN INTACT;TLE MONITORING IN PLACE;#20G TO LFA INFUSING NS PER ORDER WITH EASE;PT DENIES ANY ADDITIONAL NEEDS AT THIS TIME AND IS ENCOURAGED TO CALL FOR ASSISTANCE IF NEEDED;FALL PRECAUTIONS REMAIN IN PLACE WITH BED IN THE LOWEST POSITION AND CALL LIGHT IN REACH;WILL CONTINUE TO MONITOR
--- NOTE | 2019-07-29 11:40 | NUR ---
PT RESTING IN SEMI FOWLERS POSITION WATCHING TV;RESPIRATIONS REMAIN EVEN AND UNLABORED ON O2 @ 2L VIA NC;PT DENIES ANY CURRENT PAIN OR DISCOMFORTS;TELE MONITORING IN PLACE;IV FLUIDS INFUSING WITH EASE PER ORDER;ASSESSMENT REMAINS UNCHANGED AT THIS TIME;PT ENCOURAGED TO CALL FOR ASSISTANCE IF NEEDED;FALL PRECAUTIONS IN PLACE WITH CALL LIGHT IN REACH;WILL CONTINUE TO MONITOR
--- NOTE | 2019-07-29 11:44 | NUR ---
AT BEDSIDE DISCUSSING POC WITH PT INCLUDING STARTING SOLUMEDROL 40MG BID,PT VERBALIZES UNDERSTANDING.
--- NOTE | 2019-07-29 15:32 | NUR ---
PT TRANSPORTED TO MED/SURG ROOM 272 IN STABLE CONDITION DUE TO COVID19 NEGATIVE RESULTS.
--- NOTE | 2019-07-29 15:40 | NUR ---
PT RESTING IN SEMI FOWLERS POSITION;RESPIRATIONS REMAIN EVEN AND UNLABORED ON O2 @ 2L VIA NC;PT DENIES ANY CURRENT PAIN OR NEEDS;TELE MONITORING IN PLACE;IV FLUIDS CONTINUE TO INFUSE WITH EASE AND ABX HUNG;PT DENIES ANY CURRENT PAIN OR NEEDS;ENCOURAGED TO CALL FOR ASSISTANCE IF NEEDED;CALL LIGHT IN REACH;WILL CONTINUE TO MONITOR
--- NOTE | 2019-07-29 20:30 | NUR ---
PATIENT RESTING IN BED AT THIS TIME WITH HOB ELEVATED AD O2 VIA N/C IN PLACE AT 2LPM. AWAKE ALERT AND ORIENTEDX3. PATIENT STATE THAT SHE IS FEELING BETTER. TELE MONITOR IN PLAE. IVF PATENT AND INFUSING IA LEFT FOREARM ITE AT [facility]. SITE IS HEALTHY AT THI TIME. OCC NON-PRODUCTIVE COUGH. LUNGS ARE DIMINISHED WITH ONLY OCC WHEEZINGING NOTED. VOIDING QS ON BSC CLEAR YELLOW URINE. STATES THAT SHE HAD BM TODAY. FEET REMAIN DISCOLORED WORSE WHEN DEPENDANT WITH PULSES PALPABLE. PROVIDED PATIENT WITH HS SNACK OF ICE CREAM AND SERENA CRACKERS.SAFETY PRECAUTIONS REINFORCCED. CALL LIGHT IN REACH. WILL CONT TO MONITOR
--- NOTE | 2019-07-29 21:58 | NUR ---
PATIENT CALLED C/O NAUSEA-MEDICATED WITH ZOFRAN 4MG IVP ORDERED FOR NAUSEA. GINGERALE PROVIDED FOR PATIENT. CALL LIGHT IN REACH. WILL CONT TO MONITOR.
--- NOTE | 2019-07-29 23:57 | NUR ---
PATIENT RESTING IN BED AT THIS TIME WITH HOB ELEVATED AND O2 VIA NASAL CANNULA IN PLACE. RESP ARE EVEN AND UNLABORED. TELE MONITOR IN PLACE. IF PATENT AND INFUSING AT KVO RATE. SITE REMAINS HEALTHY. CALL LIGHT IN ROOM. WILL CONT TO MONITOR.
[2019-07-30] VITALS (7 sets, daily range): BP systolic 115–150; BP diastolic 68–77
--- NOTE | 2019-07-30 04:36 | NUR ---
PATIENT RESTING IN BED WITH HOB ELEVATED-O2 VIA NASAL CANNULA IN PLACE. TELE MONITOR IN PLACE. CALL LIGHT IN REACH. WILL CONT TO MONITOR.
[2019-07-30 05:13] LABS: HEMATOCRIT 39.8 % (37.0-47.0); HEMOGLOBIN 12.4 g/dl (12.0-16.0); MEAN CORPUSCULAR HGB CONC 31.2 g/dL CAL (32.0-36.0); RED BLOOD COUNT 4.28 mill/uL (4.20-5.60); RED CELL DISTRI WIDTH 13.3 % (11.5-15.5)
[2019-07-30 05:27] LABS: ANION GAP 14 (6-22 (CALC)); BUN 22 mg/dL (8-23); BUN/CREATININE RATIO 39 (12-20 (CALC)); CARBON DIOXIDE 25 mmol/l (22-30); CHLORIDE 102 mmol/l (95-108); CREATININE 0.6 mg/dL (0.5-1.0); GFR > 60 ML/MIN (>=60 (CALC)); GFR FOR AFR.AMER. > 60 ML/MIN (>=60 (CALC)); MAGNESIUM 2.3 mg/dL (1.6-2.3); POTASSIUM 4.7 mmol/l (3.5-5.1); SODIUM 136 mmol/l (137-146)
--- NOTE | 2019-07-30 07:00 | NUR ---
REPORT RECEIVED FROM DAMIÁN CHAPPELL;PT APPEARS TO BE RESTING IN SEMI FOWLERS POSITION;RESPIRATIONS EVEN AND UNLABORED ON O2 @ 2L VIA NC;NO S/S OF DISTRESS NOTED;TELE MONITORING IN PLACE;IV FLUIDS INFUSING WITH EASE PER ORDER;ALL SAFETY PRECAUTIONS REINFORCED WITH BED IN THE LOWEST POSITION AND CALL LIGHT IN REACH;WILL CONTINUE TO MONITOR
--- NOTE | 2019-07-30 08:45 | NUR ---
PT RESTING IN SEMI FOWLERS POSITION,A&O X3;VS OBTAINED AND ASSESSMENT COMPLETED;PT DENIES ANY CURRENT PAIN OR DISCOMFORTS,PAIN SCALE AND REPORTING EDUCATED;RESPIRATIONS EVEN AND UNLABORED ON O2 @ 2L VIA NC,DIMINISHED LUNG SOUNDS;NON-PRODUCTIVE COUGH;ABDOMEN SOFT ON PALPATION AND ACTIVE IN ALL 4 QUADRANTS;WEAK PEDAL PULSES;SKIN INTACT;TELE MONITORING IN PLACE;#20G TO LFA INFUSING NS PER ORDER WITH EASE;PT DENIES ANY ADDITIONAL NEEDS AT THIS TIME AND IS ENCOURAGED TO CALL FOR ASSISTANCE IF NEEDED;CALL LIGHT IN REACH;WILL CONTINUE TO MONITOR
--- NOTE | 2019-07-30 11:15 | NUR ---
AT BEDSIDE DISCUSSING POC WITH PT.
--- NOTE | 2019-07-30 11:20 | NUR ---
PT RESTING IN SEMI FOWLERS POSITION;RESPIRATIONS EVEN AND UNLABORED ON O2 @ 2L VIA NC;PT DENIES ANY CURRENT PAIN OR NEEDS;TELE MONITORING IN PLACE;IV FLUIDS INFUSING WITH EASE PER ORDER;ASSESSMENT REMAINS UNCHANGED AT THIS TIME;ALL SAFETY PRECAUTIONS IN PLACE WITH BED IN THE LOWEST POSITION AND CALL LIGHT IN REACH;WILL CONTINUE TO MONITOR
--- NOTE | 2019-07-30 15:20 | NUR ---
PT RESTING IN SEMI FOWLERS POSITION;RESPIRATIONS EVEN AND UNLABORED ON O2 @ 2L VIA NC;PT DENIES ANY CURRENT PAIN OR DISCOMFORTS;TELE MONITORING IN PLACE;IV FLUIDS INFUSING WITH PER ORDER AND ABX STARTED AT THIS TIME;PT DENIES ANY ADDITIONAL NEEDS AND IS ENCOURAGED TO CALL FOR ASSISTANCE IF NEEDED;FALL PRECAUTIONS REMAIN IN PLACE WITH CALL LIGHT IN REACH;WILL CONTINUE TO MONITOR
--- NOTE | 2019-07-30 19:43 | NUR ---
PT SITTING IN BSC. ASSISTED PT BACK INTO BED. A&O X3. EXCERTIONAL SOB NOTED. WHEEZING HEARD UPON AUSCULTATION. APPLIED O2 VIA NC @2L. PER PT IF SHE HAS A "WATER PILL" FOR TONIGHT SHE DOES NOT WANT TO TAKE IT. NO OTHER NEEDS AT THIS TIME. ASSESSMENT COMPLETED. DISCUSSED POC. CALL LIGHT IN REACH. CONTINUE TO MONITOR.
--- NOTE | 2019-07-31 00:05 | NUR ---
PT SLEEPING IN BED.NO DISTRESS NOTED.RESP EVEN AND UNLABORED. CONTINUE TO MONITOR.
[2019-07-31 03:46] VITALS: BP 137/62
--- NOTE | 2019-07-31 07:15 | NUR ---
REPORT RECEIVED FROM KELSEYRN;PT RESTING IN SEMI FOWLERS POSITION;INTRODUCED SELF TO PT AND POC DISCUSSED;RESPIRATIONS EVEN AND UNLABORED ON O2 @ 2L VIA NC;PT DENIES ANY CURRENT PAIN OR NEEDS;TELE MONITORING IN PLACE;IV FLUIDS INFUSING WITH EASE PER ORDER;PT ENCOURAGED TO CALL FOR ASSISTANCE IF NEEDED;FALL PRECAUTIONS IN PLACE WITH BED IN THE LOWEST POSITION AND CALL LIGHT IN REACH;WILL CONTINUE TO MONITOR
[2019-07-31 09:19] VITALS: BP 134/77
--- NOTE | 2019-07-31 09:20 | NUR ---
PT RESTING IN SEMI FOWLERS POSITION,A&O X3;VS OBTAINED AND ASSESSMENT COMPLETED;PT DENIES ANY CURRENT PAIN OR DISCOMFORTS,PAIN SCALE AND REPORTING EDUCATED;RESPIRATIONS EVEN AND UNLABORED ON O2 @ 2L VIA NC, EXERTIONAL SOB NOTED;NON-PRODUCTIVE COUGH;ABDOMEN SOFT ON PALPATION AND ACTIVE IN ALL 4 QUADRANTS;WEAK PEDAL PULSES;SKIN INTACT;TELE MONITORING IN PLACE;#20G TO LFA INFUSING NS WITH EASE PER ORDER,SITE APPEARS HEALTHY;PT DENIES ANY ADDITIONAL NEEDS AND IS ENCOURAGED TO CALL FOR ASSISTANCE IF NEEDED;CALL LIGHT IN REACH;WILL CONTINUE TO MONITOR
[2019-07-31] MEDS ORDERED: MEDDOSEPAK PO (10:11)
[2019-07-31] MEDS ORDERED: ZITHROMAX250 MG PO (10:11)
--- NOTE | 2019-07-31 10:41 | NUR ---
AT BEDSIDE DISCUSSING POC.
[2019-07-31 10:45] VITALS: BP 126/80
--- NOTE | 2019-07-31 11:05 | NUR ---
PT RESTING IN SEMI FOWLERS POSITION;RESPIRATIONS REMAIN EVEN AND UNLABORED ON O2 @ 2L VIA NC;PT DENIES ANY CURRENT PAIN OR NEEDS;TELE MONITORING IN PLACE;PT VERBALIZES UNDERSTANDING OF PLANS TO D/C HOME;PT TO BE D/C AFTER LUNCH WHEN HER DAUGHTER IS ABLE TO TRANPORT;PT ENCOURAGED TO CALL FOR ASSISTANCE IF NEEDED;CALL LIGHT IN REACH;WILL CONTINUE TO MONITOR
--- NOTE | 2019-07-31 12:00 | NUR ---
ALL DISCHARGE INSTRUCTIONS PROVIDED AT THIS TIME;PT EDUCATED ON ABX THAT WAS SENT TO PHARMACY FOR SAMINA AND LIDIA EVANS,PT INSTRUCTED TO TAKE DIRECTED;STAY HOME AND USE BREATHING TX NEEDED;PT DENIES ANY ADDITIONAL NEEDS AT THIS TIME;WHEELCHAIR TO BE PROVIDED FOR D/C HOME;DAUGHTER TO TRANSPORT PT HOME.
--- NOTE | 2019-07-31 12:40 | NUR ---
Discharge instructions given. Patient verbalizes understanding of same. Discharged in stable condition via Wheelchair to Home with family. All belongings sent with pt. PT TRANSPORTED TO [facility] IN STABLE CONDITION VIA WHEELCHAIR ACCOMPANIED JOSE MONZON FOR D/C,DAUGHTER TO TRANPORT PT HOME.
--- NOTE | 2019-08-07 07:12 | NUR ---
Pneumonia discharge follow up call completed 08/05/19. Pt indicates she is doing well but has not had a follow up appt with her PCP and did not obtain the medication prescibed upon discharge. Pt. states she was having some "issues with her insurance, but thinks she is "close to working it out." Pharmacy has been made aware of the patient situation and will work to resolve issues and obtain meds.
== END 2019-07-31 12:40 | disposition home or self-care (01) | DRG 190 ==
LOC: ED 14:53 → ED-I 16:17 → ED 16:40 → MS2 16:41 → ED-I 16:41 → MS2 17:15
PROVIDERS: Family Medicine; Nurse Practitioner Family; ADMIT Internal Medicine; ATTEND Internal Medicine
DX: J43.9 Emphysema, unspecified (principal); J96.20 Acute and chronic respiratory failure, unspecified whether with hypoxia or hypercapnia; I16.0 Hypertensive urgency; I10 Essential (primary) hypertension; E11.9 Type 2 diabetes mellitus without complications; K21.9 Gastro-esophageal reflux disease without esophagitis; N32.81 Overactive bladder; Z99.81 Dependence on supplemental oxygen; Z95.820 Peripheral vascular angioplasty status with implants and grafts; Z87.891 Personal history of nicotine dependence; Z20.828 Contact with and (suspected) exposure to other viral communicable diseases
CPT/HCPCS: G0378; J1650

== ENCOUNTER 2020-05-21 18:10 | Observation (INO) | payer MEDICARE, OTHER ==
[~2020-05-21] VITALS: Ht 160 cm; Wt 81.8 kg
[~2020-05-21 18:10] MED LIST changes: +ALLERGY NA50 MCG/ACT NAB; +AMOX/K CLAV875 M1 PO; +HYDROCHLOROT12.5 M1 PO; +INCRUSE EL62.5 MCG/I IN; +LOSARTAN POTAS100 MG PO; +MEDDOSEPAK PO; +MONTELUKAST SOD10 MG PO; +MOTRIN800 MG PO; +SYMBICORT 80-4.5MCG IN; +ZITHROMAX250 MG PO
--- NOTE | 2020-05-21 18:28 | NUR ---
PATIENT TO ROOM VIA WHEELCHAIR.
--- NOTE | 2020-05-21 19:04 | NUR ---
W/P/DSKIN NO C/O PAIN NO SOB/DYSPNEA NO COUGH NO CONGESTION.WHEEZING R SIDED ON ASCULTATION NO CONGESTION
[2020-05-21 19:14] LABS: HEMATOCRIT 43.3 % (37.0-47.0); HEMOGLOBIN 13.6 g/dl (12.0-16.0); IMMATURE GRANULOCYTES 0.3 % (0.0-5.0); MEAN CELL VOLUME 94.1 fL CALC (80.0-100.0); MEAN CORPUSCULAR HGB 29.6 pG CALC (26.0-32.0); MEAN CORPUSCULAR HGB CONC 31.4 g/dL CAL (32.0-36.0); NEUT# 5.9 thou/uL (2.00-7.15); RED BLOOD COUNT 4.6 mill/uL (4.20-5.60); RED CELL DISTRI WIDTH 12.9 % (11.5-15.5)
[2020-05-21 19:32] LABS: ALKALINE PHOSPHATASE 154 u/l (38-126); BILIRUBIN, TOTAL 0.5 mg/dL (0.0-1.4); BUN 17 mg/dL (8-23); BUN/CREATININE RATIO 26 (12-20 (CALC)); CARBON DIOXIDE 28 mmol/l (22-30); CHLORIDE 100 mmol/l (95-108); CREATININE 0.7 mg/dL (0.5-1.0); GFR > 60 ML/MIN (>=60 (CALC)); GFR FOR AFR.AMER. > 60 ML/MIN (>=60 (CALC)); SGOT/AST 29 u/l (9-36); SODIUM 138 mmol/l (137-146)
[2020-05-21 19:33] LABS: ALBUMIN 4.4 g/dL (3.2-5.0); ANION GAP 14 (6-22 (CALC)); POTASSIUM 3.6 mmol/l (3.5-5.1)
--- NOTE | 2020-05-21 20:24 | NUR ---
W\D SKIN NO COUGH NO WHEEZE NO SOB,NO CP
--- NOTE | 2020-05-21 21:21 | NUR ---
SR NO ECTOPY W/P/D SKIN NO COUGH NO CONGESTION NO WHEEZE OR SOB
--- NOTE | 2020-05-21 22:16 | NUR ---
UP TO RR TO VOID NO SOB,OR DYSPNEA.
--- NOTE | 2020-05-21 23:25 | NUR ---
PT STATES SHE CAN BREATHE EASIER AFTER ALBUTEROL 2 PUFFS X2 OVER 15 MINUTES,SR NO ECTOPY,W/D SKIN
--- NOTE | 2020-05-22 00:38 | NUR ---
PT TAKES TY PO WITH WATER NO CP NO SOB NO WHEEZE OR COUGH
--- NOTE | 2020-05-22 01:26 | NUR ---
PT IS ASLEEP WITH NO S/S OF RESP DOFF NSR NO ECTOPY
--- NOTE | 2020-05-22 02:44 | NUR ---
W/P0/D SKIN AWAKENED FROM SLEEP DENIES PAIN NO COUGH NO SOB
--- NOTE | 2020-05-22 05:17 | NUR ---
AWAKENED FROM SLEEP W/P/D SKIN NO COUGH NO CONGESTION PT DENIES SOB.
--- NOTE | 2020-05-22 06:02 | NUR ---
UP TO RR TO VOID NO EXERTIONAL DYSPNEA NO PAIN NOR SOB AMB
--- NOTE | 2020-05-22 06:51 | NUR ---
PT REPORT TO NURSE HANNAH
--- NOTE | 2020-05-22 08:32 | NUR ---
PT SEEN AWAKE AND ALERT, ORIENTED X 3 SHE RESTS IN THE BED IN ER. LUNGS HAVE SCATTERED CRACKLES TO BASES, USES 3 LPM NC. INITIAL ADMISSION ASSESSMENT COMPLETED, WILL CONTINUE PT WAITS FOR ROOM UPSTAIRS. NO DISTRESS, NO COMPLAINTS.
--- NOTE | 2020-05-22 08:43 | NUR ---
CHARTING TO CONTINUE ON INPATIENT FORMAT.
[2020-05-22] MEDS ORDERED: IPRATROPIU0.5 MG/3 M IN (10:26)
[2020-05-22] MEDS ORDERED: ZITHROMAX250 MG PO (10:26)
[2020-05-22] MEDS ORDERED: MEDDOSEPAK PO (10:26)
[2020-05-22 11:50] VITALS: BP 148/76
--- NOTE | 2020-05-22 11:56 | NUR ---
PT VERBALIZES UNDERSTANDING OF DC INSTRUCTIONS, TAKEN BY WHEELCHAIR TO VEHICLE WHERE DAUGHTER NATA WAS WAITING. PT LEAVES [facility] IN STABLE CONDITION.
--- NOTE | 2020-05-22 12:04 | NUR ---
PT HAS BEEN DISCHARGED TO HOME. SEE INPATIENT RECORD.
== END 2020-05-22 11:50 | disposition home or self-care (01) ==
LOC: ED 18:10 → ED-I 23:12 → ED 23:42 → ED-I 23:43
PROVIDERS: Family Medicine; ADMIT Internal Medicine; ATTEND Internal Medicine
DX: J44.1 Chronic obstructive pulmonary disease with (acute) exacerbation (principal); J96.10 Chronic respiratory failure, unspecified whether with hypoxia or hypercapnia; I10 Essential (primary) hypertension; M79.89 Other specified soft tissue disorders; K21.9 Gastro-esophageal reflux disease without esophagitis; M19.90 Unspecified osteoarthritis, unspecified site; R73.03 Prediabetes; I38 Endocarditis, valve unspecified; Z99.81 Dependence on supplemental oxygen; Z95.820 Peripheral vascular angioplasty status with implants and grafts; Z87.891 Personal history of nicotine dependence; Z20.822 Contact with and (suspected) exposure to COVID-19

== ENCOUNTER 2020-06-29 21:07 | Emergency (ER) | payer MEDICARE, OTHER ==
[~2020-06-29] VITALS: Ht 160 cm; Wt 81.8 kg
[~2020-06-29 21:07] MED LIST changes: +IPRATROPIU0.5 MG/3 M IN
[2020-06-29 22:42] LABS: HEMATOCRIT 42.1 % (37.0-47.0); HEMOGLOBIN 13.1 g/dl (12.0-16.0); IMMATURE GRANULOCYTES 0.3 % (0.0-5.0); MEAN CORPUSCULAR HGB 29.6 pG CALC (26.0-32.0); MEAN CORPUSCULAR HGB CONC 31.1 g/dL CAL (32.0-36.0); NEUT# 6.81 thou/uL (2.00-7.15); RED BLOOD COUNT 4.43 mill/uL (4.20-5.60)
--- NOTE | 2020-06-29 22:46 | NUR ---
BREATHING TREATMENT GIVEN.
[2020-06-29 23:20] LABS: ALBUMIN 4.3 g/dL (3.2-5.0); ALKALINE PHOSPHATASE 111 u/l (38-126); ANION GAP 12 (6-22 (CALC)); BUN 18 mg/dL (8-23); BUN/CREATININE RATIO 25 (12-20 (CALC)); CARBON DIOXIDE 30 mmol/l (22-30); CHLORIDE 102 mmol/l (95-108); CREATININE 0.7 mg/dL (0.5-1.0); GFR > 60 ML/MIN (>=60 (CALC)); GFR FOR AFR.AMER. > 60 ML/MIN (>=60 (CALC)); LIPASE 108 u/l (23-300); POTASSIUM 3.7 mmol/l (3.5-5.1); SGOT/AST 26 u/l (9-36); SODIUM 140 mmol/l (137-146); TOTAL PROTEIN 7.8 g/dL (6.3-8.2)
[2020-06-29 23:21] LABS: BILIRUBIN, TOTAL 0.8 mg/dL (0.0-1.4)
[2020-06-29 23:50] LABS: TSH, 3RD GENERATION 2.78 uIU/mL (0.47 - 4.68)
[2020-06-30] MEDS ORDERED: MEDDOSEPAK PO (00:06)
[2020-06-30] MEDS ORDERED: ZITHROMAX250 MG PO (00:06)
[2020-06-30] MEDS ORDERED: DIFLUCAN150 MG PO (00:06)
[2020-06-30] MEDS ORDERED: VENTOLIN HFA IN (01:02)
[2020-06-30 01:06] VITALS: BP 139/65
== END 2020-06-30 01:06 | disposition home or self-care (01) ==
LOC: ED 21:07
DX: J44.1 Chronic obstructive pulmonary disease with (acute) exacerbation (principal); I87.8 Other specified disorders of veins; I10 Essential (primary) hypertension; I25.10 Atherosclerotic heart disease of native coronary artery without angina pectoris; Z20.822 Contact with and (suspected) exposure to COVID-19
CPT/HCPCS: Q9967

== ENCOUNTER 2020-10-25 15:49 | Inpatient (IN) | payer MEDICARE, OTHER ==
[~2020-10-25] VITALS: Ht 160 cm; Wt 86.0 kg
[~2020-10-25 15:49] MED LIST changes: +DIFLUCAN150 MG PO
--- NOTE | 2020-10-25 15:53 | NUR ---
PT ASSISTED TO ROOM VIA W/C
[2020-10-25 16:31] LABS: HEMATOCRIT 42.3 % (37.0-47.0); HEMOGLOBIN 13.4 g/dl (12.0-16.0); IMMATURE GRANULOCYTES 0.3 % (0.0-5.0); MEAN CELL VOLUME 95.3 fL CALC (80.0-100.0); MEAN CORPUSCULAR HGB 30.2 pG CALC (26.0-32.0); MEAN CORPUSCULAR HGB CONC 31.7 g/dL CAL (32.0-36.0); NEUT# 6.94 thou/uL (2.00-7.15); RED BLOOD COUNT 4.44 mill/uL (4.20-5.60); RED CELL DISTRI WIDTH 12.4 % (11.5-15.5)
[2020-10-25 16:36] LABS: ALBUMIN 4.4 g/dL (3.2-5.0); ALKALINE PHOSPHATASE 115 u/l (38-126); ANION GAP 14 (6-22 (CALC)); BILIRUBIN, TOTAL 0.8 mg/dL (0.0-1.4); BUN 13 mg/dL (8-23); BUN/CREATININE RATIO 20 (12-20 (CALC)); CARBON DIOXIDE 30 mmol/l (22-30); CHLORIDE 98 mmol/l (95-108); CREATININE 0.7 mg/dL (0.5-1.0); GFR > 60 ML/MIN (>=60 (CALC)); GFR FOR AFR.AMER. > 60 ML/MIN (>=60 (CALC)); POTASSIUM 3.7 mmol/l (3.5-5.1); SGOT/AST 35 u/l (9-36); SODIUM 137 mmol/l (137-146); TOTAL PROTEIN 8.1 g/dL (6.3-8.2)
[2020-10-25 16:45] LABS: MYOGLOBIN 38 ng/mL (0 - 62)
--- NOTE | 2020-10-25 16:55 | NUR ---
PT VOICES NO CONCERNS. STABLE ON MONITOR. CALL LIGHT WITHIN REACH.
[2020-10-25 17:58] LABS: URINE BILIRUBIN - DIPSTICK NEGATIVE (NEGATIVE); URINE BLOOD DIPSTICK NEGATIVE (NEGATIVE); URINE COLOR YELLOW; URINE GLUCOSE - DIPSTICK NEGATIVE (NEGATIVE); URINE KETONE NEGATIVE (NEGATIVE); URINE PROTEIN - DIPSTICK NEGATIVE (NEG-TRACE); URINE UROBILINOGEN - DIPSTICK 0.2 E.U./dL (0.2)
[2020-10-25 18:04] LABS: URINE LEUK ESTERASE SMALL (NEGATIVE); URINE NITRITE - DIPSTICK NEGATIVE (Negative)
[2020-10-25 18:11] LABS: URINE SQUAMOUS EPITHELIAL CELL RARE EPI/hpf (0-FEW); URINE WBC 0-2 WBC/hpf (0-5)
--- NOTE | 2020-10-25 18:22 | NUR ---
IV MEDS INFUSING WITHOUT DIFFICULTY. STABLE ON MONITOR.
[2020-10-25] MEDS ORDERED: DITROPAN5 MG/TA1 PO (18:25)
--- NOTE | 2020-10-25 18:36 | NUR ---
SBAR PRINTED TO FLOOR
--- NOTE | 2020-10-25 19:00 | NUR ---
CARE ASSUMED REPORT REC'D
--- NOTE | 2020-10-25 19:25 | NUR ---
REPORT CALLED TO MUKUND STEEL ON MED SURG
--- NOTE | 2020-10-25 19:40 | NUR ---
PT TRANSPORTED TO MED SURG VIA WHEELCHAIR ON NASAL CANNULA, FILOMENA SENT WITH PT AND PT TO CALL FAMILY MEMBER TO COME AND GET THEM.
[2020-10-25 19:49] VITALS: BP 150/87
--- NOTE | 2020-10-25 20:30 | NUR ---
RECEIVED REPORT FROM NURSE YUNG PATIENT TRANSPORTED VIA WHEELCHAIR AT 194, HOOKED TO O2 @ 2LPM, PATIENT ASSISTED IN BED, STANDBY ASSIST, ORIENTED TO ROOM AND CALL LIGHT SYSTEM, HOOKED ON TELE ST 100, C/O HEADACHE WILL MEDICATE, NOTED TO HAVE COARSE/WHEEZING UPON AUSCULTATION, PATIENT BRINGING MEDS. CALLED FAMILY WILL BE SENT HOME, CALLED RESPIRATORY FOR BREATHING TREATMENT R/T SOB PATIENT PATIENT RELIEVED, CALL LIGHT AT REACH.
[2020-10-25 23:27] VITALS: BP 113/72
--- NOTE | 2020-10-26 00:44 | NUR ---
PATIENT APPEARS TO BE SLEEPING WITH EYES CLOSED, BREATHING SHALLOW, UNLABORED, CALL LIGHT AT REACH.
[2020-10-26 03:46] VITALS: BP 108/72
--- NOTE | 2020-10-26 03:51 | NUR ---
PATIENT APPEARS TO BE SLEEPING WITH EYES CLOSED, REMAINS ON OW @ 2LPM VIA NC, BREATHING SHALLOW, UNLABORED CALL LIGHT AT REACH.
[2020-10-26 05:24] LABS: HEMATOCRIT 41.4 % (37.0-47.0); HEMOGLOBIN 13.4 g/dl (12.0-16.0); IMMATURE GRANULOCYTES 0.4 % (0.0-5.0); MEAN CELL VOLUME 94.3 fL CALC (80.0-100.0); MEAN CORPUSCULAR HGB 30.5 pG CALC (26.0-32.0); MEAN CORPUSCULAR HGB CONC 32.4 g/dL CAL (32.0-36.0); NEUT# 9.63 thou/uL (2.00-7.15); RED BLOOD COUNT 4.39 mill/uL (4.20-5.60); RED CELL DISTRI WIDTH 12.4 % (11.5-15.5)
[2020-10-26 05:42] LABS: ALBUMIN 3.9 g/dL (3.2-5.0); ALKALINE PHOSPHATASE 107 u/l (38-126); ANION GAP 15 (6-22 (CALC)); BUN 17 mg/dL (8-23); BUN/CREATININE RATIO 28 (12-20 (CALC)); CARBON DIOXIDE 26 mmol/l (22-30); CHLORIDE 100 mmol/l (95-108); CREATININE 0.6 mg/dL (0.5-1.0); GFR > 60 ML/MIN (>=60 (CALC)); GFR FOR AFR.AMER. > 60 ML/MIN (>=60 (CALC)); POTASSIUM 4.2 mmol/l (3.5-5.1); SGOT/AST 29 u/l (9-36); SODIUM 137 mmol/l (137-146); TOTAL PROTEIN 7.4 g/dL (6.3-8.2)
[2020-10-26 05:50] LABS: BILIRUBIN, TOTAL 0.4 mg/dL (0.0-1.4)
--- NOTE | 2020-10-26 07:00 | NUR ---
PT REPORT RECEIVED FROM GIULIANA NURSEMAULIK
--- NOTE | 2020-10-26 08:00 | NUR ---
PT WAS FOUND SITTING ON THE SIDE OF THE BED,RESTING;PT IS A&OX3;VS AND ASSESSMENT WERE COMPLETED;PT HAS NO REPORTS OF PAIN AT THIS TIME;HEART SOUNDS ARE REGULAR IN RATE AND RHYTHM;TELE IS IN PLACE;LUNG SOUNDS ARE DIMINISHED WITH RHONCHI THROUGHOUT;RESPIRATIONS ARE SLIGHTLY LABORED AND PT IS REPORTING EXERTIONAL SOB AND NON-PRODUCTIVE COUGH;PT IS CURRENTLY ON O2@2L VIA NC WITH O2 SAT OF 98%;#20G IV IN LAC IS SL, PATENT AND APPEARS FREE OF COMPLICATIONS AT THIS TIME;ABDOMEN IS SOFT WITH ACTIVE BOWEL SOUNDS IN ALL QUADRANTS;SAFETY PRECAUTIONS IN PLACE;CALL LIGHT WITHIN REACH;PT ENCOURAGED TO CALL WITH ANY NEEDS OR CONCERNS;WILL CONTINUE TO MONITOR.
[2020-10-26 08:15] VITALS: BP 140/82
--- NOTE | 2020-10-26 08:32 | NUR ---
AND NOLVIA NOONAN AT BEDSIDE DISCUSSING POC
[2020-10-26 11:08] VITALS: BP 120/78
--- NOTE | 2020-10-26 12:00 | NUR ---
PT WAS FOUND RESTING ON THE SIDE OF THE BED EATING LUNCH;TELE IS IN PLACE;O2@2L VIA NC IS ON PT AT THIS TIME;SAFETY PRECAUTIONS IN PLACE;CALL LIGHT WITHIN REACH;WILL CONTINUE TO MONITOR.
[2020-10-26 14:43] VITALS: BP 99/56
[2020-10-26 18:35] VITALS: BP 101/64
--- NOTE | 2020-10-26 19:00 | NUR ---
RECEIVED REPORT FROM NURSE FLEMING, PATIENT RESTING IN BED, HOOKED TO O2 VIA NC, ASSUMED CARE, CALL LIGHT AT REACH.
--- NOTE | 2020-10-26 20:00 | NUR ---
PATIENT RESTING IN BED WATCHING TV, REMAINS ON O2 @ 2LPM VIA NC, NOTED TO HAVE AUDIBLE WHEEZING ON BOTH LUNG CARPIO, BREATHING SHALLOW, EXERTIONAL DYSPNEA NOTED, STILL HAVING NON PRODUCTIVE COUGH, POX 96% ON 2LPM, HAS SALIEN LOCK ON RAC G20 PATENT INFUSING WELL, REMAINS ON TELE SR 97, LBM 10/26, DENIES PAIN AT THIS TIME, STATED THAT FEELS BETTER THAN YESTERDAY, DISCUSSED THE PLAN OPF CARE CALL LIGHT AT REACH.
[2020-10-27] VITALS: BP 107/72
--- NOTE | 2020-10-27 | NUR ---
PATIENT APPEARS TO BE SLEEPING WITH EYES CLOSED, BREATHING SHALLOW, NO IN DISTRESS, REMAINS ON O2 @ 2LPM VIA NC, CALL LIGHT AT REACH.
[2020-10-27 04:00] VITALS: BP 114/70
--- NOTE | 2020-10-27 04:02 | NUR ---
PATIENT RESTING IN BED EYES CLOSED, REMAINS ON O2 @ 2LPM VIA NC, NOT IN DISTRESSED CALL LIGHT AT REACH.
[2020-10-27 05:29] LABS: HEMATOCRIT 40.7 % (37.0-47.0); HEMOGLOBIN 12.9 g/dl (12.0-16.0); MEAN CELL VOLUME 96.2 fL CALC (80.0-100.0); MEAN CORPUSCULAR HGB 30.5 pG CALC (26.0-32.0); MEAN CORPUSCULAR HGB CONC 31.7 g/dL CAL (32.0-36.0); RED BLOOD COUNT 4.23 mill/uL (4.20-5.60); RED CELL DISTRI WIDTH 12.5 % (11.5-15.5)
[2020-10-27 05:37] LABS: ANION GAP 14 (6-22 (CALC)); BUN 28 mg/dL (8-23); BUN/CREATININE RATIO 46 (12-20 (CALC)); CARBON DIOXIDE 25 mmol/l (22-30); CHLORIDE 103 mmol/l (95-108); CREATININE 0.6 mg/dL (0.5-1.0); GFR > 60 ML/MIN (>=60 (CALC)); GFR FOR AFR.AMER. > 60 ML/MIN (>=60 (CALC)); MAGNESIUM 2.4 mg/dL (1.6-2.3); POTASSIUM 4.3 mmol/l (3.5-5.1); SODIUM 137 mmol/l (137-146)
--- NOTE | 2020-10-27 07:00 | NUR ---
PT REPORT RECEIVED FROM NIGHT NURSEKIERA
[2020-10-27 07:34] VITALS: BP 117/75
--- NOTE | 2020-10-27 08:00 | NUR ---
PT WAS FOUND SITTING ON THE SIDE OF THE BED EATING BREAKFAST;PT IS A&OX3;VS AND ASSESSMENT WERE COMPLETED;PT IS REPORTING NO PAIN AT THIS TIME;HEART SOUNDS ARE REGULAR IN RATE AND RHYTHM;TELE IS IN PLACE;LUNG SOUNDS HAVE SLIGHT WHEEZING PRESENT AND ARE DIMINISHED IN ALL LOBES;PT IS REPORTING A NON-PRODUCTIVE COUGH;RESPIRATIONS ARE SOMEWHAT LABORED ON O2@2L VIA NC;O2 SAT CURRENTLY STABLE @97%;#20G IV IN LAC IS SL,PATENT AND APPEARS FREE OF COMPLICATIONS AT THIS TIME;ABDOMEN IS SOFT WITH ACTIVE BOWEL SOUNDS AUSCULTATED IN ALL QUADRANTS;SAFETY PRECAUTIONS IN PLACE;CALL LIGHT WITHIN REACH;PT ENCOURAGED TO CALL WITH ANY NEEDS OR CONCERNS;WILL CONTINUE TO MONITOR.
--- NOTE | 2020-10-27 09:15 | NUR ---
AND NOLVIA NOONAN AT BEDSIDE DISCUSSING POC WITH PT
[2020-10-27] MEDS ORDERED: PREDNISONE10 MG PO (10:00)
[2020-10-27] MEDS ORDERED: OMNICEF300 MG PO (10:00)
[2020-10-27] MEDS ORDERED: ZITHROMAX250 MG PO (10:00)
[2020-10-27 10:48] VITALS: BP 132/80
[2020-10-27 12:00] VITALS: BP 132/80
--- NOTE | 2020-10-27 12:10 | NUR ---
REPORT REC FROM Henri BERMUDEZ RN, PT CARE RESUMED BY THIS RESEARCH SUBJECT
[2020-10-27 15:07] VITALS: BP 120/69
--- NOTE | 2020-10-27 15:10 | NUR ---
Discharge instructions given. Patient verbalizes understanding of same. Discharged in stable condition via wheelchair to home with [facility] accompanied by staff. Pt encourgaed to return for new or worsening symptoms, pt verbalized understanding, also encouraged to use home oxygen as needed. All belongings sent with pt.
== END 2020-10-27 15:10 | disposition home health service (06) | DRG 190 ==
LOC: ED 15:49 → ED-I 18:20 → ED 18:33 → MS2 18:34
PROVIDERS: Emergency Medicine; Nurse Practitioner; Nurse Practitioner Family; ADMIT Internal Medicine; ATTEND Internal Medicine
DX: J44.1 Chronic obstructive pulmonary disease with (acute) exacerbation (principal); J18.9 Pneumonia, unspecified organism; J96.21 Acute and chronic respiratory failure with hypoxia; J44.0 Chronic obstructive pulmonary disease with (acute) lower respiratory infection; I10 Essential (primary) hypertension; Z87.891 Personal history of nicotine dependence; Z99.81 Dependence on supplemental oxygen; Z20.822 Contact with and (suspected) exposure to COVID-19
CPT/HCPCS: G0378; J1650

== ENCOUNTER 2020-11-19 14:08 | Emergency (ER) | payer MEDICARE, OTHER ==
[~2020-11-19] VITALS: Ht 160 cm; Wt 86.3 kg
[~2020-11-19 14:08] MED LIST changes: +OMNICEF300 MG PO; +PREDNISONE10 MG PO
[2020-11-19 15:34] LABS: HEMATOCRIT 40.3 % (37.0-47.0); HEMOGLOBIN 12.7 g/dl (12.0-16.0); IMMATURE GRANULOCYTES 0.2 % (0.0-5.0); MEAN CELL VOLUME 97.1 fL CALC (80.0-100.0); MEAN CORPUSCULAR HGB 30.6 pG CALC (26.0-32.0); MEAN CORPUSCULAR HGB CONC 31.5 g/dL CAL (32.0-36.0); NEUT# 6.4 thou/uL (2.00-7.15); RED BLOOD COUNT 4.15 mill/uL (4.20-5.60); RED CELL DISTRI WIDTH 12.9 % (11.5-15.5)
[2020-11-19 15:57] LABS: ALBUMIN 3.7 g/dL (3.2-5.0); ALKALINE PHOSPHATASE 110 u/l (38-126); BUN 18 mg/dL (8-23); BUN/CREATININE RATIO 26 (12-20 (CALC)); CARBON DIOXIDE 28 mmol/l (22-30); CHLORIDE 101 mmol/l (95-108); CREATININE 0.7 mg/dL (0.5-1.0); GFR > 60 ML/MIN (>=60 (CALC)); GFR FOR AFR.AMER. > 60 ML/MIN (>=60 (CALC)); SGOT/AST 24 u/l (9-36); SODIUM 137 mmol/l (137-146); TOTAL PROTEIN 6.9 g/dL (6.3-8.2)
[2020-11-19 15:59] LABS: ANION GAP 11 (6-22 (CALC)); BILIRUBIN, TOTAL 0.7 mg/dL (0.0-1.4); POTASSIUM 3.4 mmol/l (3.5-5.1)
[2020-11-19] MEDS ORDERED: KEFLEX500 MG PO (16:22)
[2020-11-19 16:36] VITALS: BP 138/71
== END 2020-11-19 16:50 | disposition home or self-care (01) ==
LOC: ED 14:08
DX: L03.116 Cellulitis of left lower limb (principal); U07.1 COVID-19; J44.9 Chronic obstructive pulmonary disease, unspecified; I10 Essential (primary) hypertension; Z99.81 Dependence on supplemental oxygen

== ENCOUNTER 2020-11-23 08:51 | Inpatient (IN) | payer MEDICARE, OTHER ==
[~2020-11-23 08:51] MED LIST changes: +KEFLEX500 MG PO
[2020-11-23 09:54] LABS: HEMATOCRIT 43.6 % (37.0-47.0); HEMOGLOBIN 13.8 g/dl (12.0-16.0); IMMATURE GRANULOCYTES 0.3 % (0.0-5.0); MEAN CELL VOLUME 96.5 fL CALC (80.0-100.0); MEAN CORPUSCULAR HGB 30.5 pG CALC (26.0-32.0); MEAN CORPUSCULAR HGB CONC 31.7 g/dL CAL (32.0-36.0); NEUT# 5.28 thou/uL (2.00-7.15); RED BLOOD COUNT 4.52 mill/uL (4.20-5.60); RED CELL DISTRI WIDTH 13.3 % (11.5-15.5)
[2020-11-23 10:02] LABS: ALBUMIN 4.1 g/dL (3.2-5.0); ALKALINE PHOSPHATASE 86 u/l (38-126); ANION GAP 14 (6-22 (CALC)); BILIRUBIN, TOTAL 0.5 mg/dL (0.0-1.4); BUN 19 mg/dL (8-23); BUN/CREATININE RATIO 27 (12-20 (CALC)); CARBON DIOXIDE 26 mmol/l (22-30); CHLORIDE 100 mmol/l (95-108); CREATININE 0.7 mg/dL (0.5-1.0); GFR > 60 ML/MIN (>=60 (CALC)); GFR FOR AFR.AMER. > 60 ML/MIN (>=60 (CALC)); LIPASE 180 u/l (23-300); SGOT/AST 40 u/l (9-36); SODIUM 136 mmol/l (137-146); TOTAL PROTEIN 7.9 g/dL (6.3-8.2)
[2020-11-23 10:07] LABS: D-DIMER 0.37 mg/L (0.19-0.60)
[2020-11-23 10:09] LABS: POTASSIUM 4.2 mmol/l (3.5-5.1)
[2020-11-23 10:10] LABS: ACT PARTIAL THROMBO TIME 27.6 SECONDS (20.0-32.5); PROTHROMBIN TIME 10.7 SECONDS (9.0-12.5)
[2020-11-23] MEDS ORDERED: MOTRIN800 MG PO (12:01)
[2020-11-23] MEDS ORDERED: LOSARTAN POTASS50 MG PO (12:02)
[2020-11-23] MEDS ORDERED: NORVASC5 M1 PO (12:02)
[2020-11-23] MEDS ORDERED: MONTELUKAST SOD10 MG PO (12:02)
[2020-11-23] MEDS ORDERED: ALENDRONATE SOD70 MG PO (12:03)
[2020-11-24] VITALS: BP 110/66
[2020-11-24 04:00] VITALS: BP 119/65
[2020-11-24 06:19] LABS: HEMATOCRIT 40.2 % (37.0-47.0); HEMOGLOBIN 12.6 g/dl (12.0-16.0); IMMATURE GRANULOCYTES 0.6 % (0.0-5.0); MEAN CELL VOLUME 96.2 fL CALC (80.0-100.0); MEAN CORPUSCULAR HGB 30.1 pG CALC (26.0-32.0); MEAN CORPUSCULAR HGB CONC 31.3 g/dL CAL (32.0-36.0); NEUT# 2.17 thou/uL (2.00-7.15); RED BLOOD COUNT 4.18 mill/uL (4.20-5.60)
[2020-11-24 06:46] LABS: ALKALINE PHOSPHATASE 75 u/l (38-126); ANION GAP 11 (6-22 (CALC)); BILIRUBIN, TOTAL 0.3 mg/dL (0.0-1.4); BUN 23 mg/dL (8-23); BUN/CREATININE RATIO 44 (12-20 (CALC)); C-REACTIVE PROTEIN 0.1 mg/dL (0-0.9); CARBON DIOXIDE 25 mmol/l (22-30); CHLORIDE 106 mmol/l (95-108); CREATININE 0.5 mg/dL (0.5-1.0); GFR > 60 ML/MIN (>=60 (CALC)); GFR FOR AFR.AMER. > 60 ML/MIN (>=60 (CALC)); POTASSIUM 3.6 mmol/l (3.5-5.1); SGOT/AST 38 u/l (9-36); SODIUM 138 mmol/l (137-146)
[2020-11-24 06:54] LABS: ALBUMIN 3.1 g/dL (3.2-5.0); TOTAL PROTEIN 6.3 g/dL (6.3-8.2)
[2020-11-24 09:30] VITALS: BP 114/63
[2020-11-24 10:50] VITALS: BP 99/58
[2020-11-24 15:36] VITALS: BP 101/60; BP 89/56
[2020-11-24 19:00] VITALS: BP 100/62
[2020-11-25] VITALS: BP 111/64
[2020-11-25 04:00] VITALS: BP 106/65
[2020-11-25 05:58] LABS: HEMOGLOBIN 14.2 g/dl (12.0-16.0); IMMATURE GRANULOCYTES 0.7 % (0.0-5.0); MEAN CELL VOLUME 94.8 fL CALC (80.0-100.0); MEAN CORPUSCULAR HGB 30.6 pG CALC (26.0-32.0); MEAN CORPUSCULAR HGB CONC 32.3 g/dL CAL (32.0-36.0); NEUT# 2.8 thou/uL (2.00-7.15); RED BLOOD COUNT 4.64 mill/uL (4.20-5.60)
[2020-11-25 06:07] LABS: ALBUMIN 3.6 g/dL (3.2-5.0); ALKALINE PHOSPHATASE 78 u/l (38-126); ANION GAP 12 (6-22 (CALC)); BILIRUBIN, TOTAL 0.3 mg/dL (0.0-1.4); BUN 16 mg/dL (8-23); BUN/CREATININE RATIO 29 (12-20 (CALC)); CARBON DIOXIDE 25 mmol/l (22-30); CHLORIDE 106 mmol/l (95-108); CREATININE 0.6 mg/dL (0.5-1.0); GFR > 60 ML/MIN (>=60 (CALC)); GFR FOR AFR.AMER. > 60 ML/MIN (>=60 (CALC)); SGOT/AST 40 u/l (9-36); SODIUM 139 mmol/l (137-146); TOTAL PROTEIN 6.9 g/dL (6.3-8.2)
[2020-11-25 08:00] VITALS: BP 120/70
[2020-11-25 11:11] VITALS: BP 107/63
[2020-11-25 14:45] VITALS: BP 92/56
[2020-11-25 19:00] VITALS: BP 103/64
[2020-11-26] VITALS (7 sets, daily range): BP systolic 99–123; BP diastolic 60–74
[2020-11-26 05:22] LABS: HEMATOCRIT 39.4 % (37.0-47.0); HEMOGLOBIN 12.5 g/dl (12.0-16.0); IMMATURE GRANULOCYTES 0.8 % (0.0-5.0); MEAN CELL VOLUME 94.9 fL CALC (80.0-100.0); MEAN CORPUSCULAR HGB 30.1 pG CALC (26.0-32.0); MEAN CORPUSCULAR HGB CONC 31.7 g/dL CAL (32.0-36.0); NEUT# 2.35 thou/uL (2.00-7.15); RED BLOOD COUNT 4.15 mill/uL (4.20-5.60)
[2020-11-26 05:34] LABS: ALKALINE PHOSPHATASE 76 u/l (38-126); ANION GAP 10 (6-22 (CALC)); BILIRUBIN, TOTAL 0.4 mg/dL (0.0-1.4); BUN 18 mg/dL (8-23); BUN/CREATININE RATIO 36 (12-20 (CALC)); C-REACTIVE PROTEIN < 0.5 mg/dL (0-0.9); CARBON DIOXIDE 25 mmol/l (22-30); CHLORIDE 106 mmol/l (95-108); CREATININE 0.5 mg/dL (0.5-1.0); GFR > 60 ML/MIN (>=60 (CALC)); GFR FOR AFR.AMER. > 60 ML/MIN (>=60 (CALC)); POTASSIUM 3.6 mmol/l (3.5-5.1); SGOT/AST 31 u/l (9-36); SODIUM 137 mmol/l (137-146); TOTAL PROTEIN 5.9 g/dL (6.3-8.2)
[2020-11-27 04:20] VITALS: BP 113/74
[2020-11-27 06:20] LABS: HEMOGLOBIN 12.9 g/dl (12.0-16.0); IMMATURE GRANULOCYTES 0.4 % (0.0-5.0); MEAN CELL VOLUME 96.7 fL CALC (80.0-100.0); MEAN CORPUSCULAR HGB 30.4 pG CALC (26.0-32.0); MEAN CORPUSCULAR HGB CONC 31.5 g/dL CAL (32.0-36.0); NEUT# 2.64 thou/uL (2.00-7.15); RED BLOOD COUNT 4.24 mill/uL (4.20-5.60); RED CELL DISTRI WIDTH 12.9 % (11.5-15.5)
[2020-11-27 06:37] LABS: ALKALINE PHOSPHATASE 61 u/l (38-126); ANION GAP 10 (6-22 (CALC)); BUN 18 mg/dL (8-23); BUN/CREATININE RATIO 38 (12-20 (CALC)); CARBON DIOXIDE 24 mmol/l (22-30); CHLORIDE 106 mmol/l (95-108); CREATININE 0.5 mg/dL (0.5-1.0); GFR > 60 ML/MIN (>=60 (CALC)); GFR FOR AFR.AMER. > 60 ML/MIN (>=60 (CALC)); POTASSIUM 3.7 mmol/l (3.5-5.1); SGOT/AST 28 u/l (9-36); SODIUM 137 mmol/l (137-146)
[2020-11-27 06:50] LABS: BILIRUBIN, TOTAL 0.2 mg/dL (0.0-1.4)
[2020-11-27 07:43] VITALS: BP 124/73
[2020-11-27 10:45] VITALS: BP 97/62
[2020-11-27] MEDS ORDERED: DEXAMETHASON6 MG PO (11:29)
[2020-11-27 15:59] VITALS: BP 127/71
== END 2020-11-27 17:26 | disposition home or self-care (01) | DRG 177 ==
LOC: ED 08:51 → ED-I 10:25 → ED 10:41 → ED-I 10:42 → MS2 16:35
PROVIDERS: Nurse Practitioner; ADMIT Internal Medicine; ATTEND Internal Medicine
PROC: XW033E5 Introduction of Remdesivir Anti-infective into Peripheral Vein, Percutaneous Approach, New Technology Group 5 (ICD-10-PCS; principal; 2020-11-23)
DX: U07.1 COVID-19 (principal); J12.82 Pneumonia due to coronavirus disease 2019; J96.21 Acute and chronic respiratory failure with hypoxia; L03.116 Cellulitis of left lower limb; J43.9 Emphysema, unspecified; I10 Essential (primary) hypertension; Z99.81 Dependence on supplemental oxygen; Z87.01 Personal history of pneumonia (recurrent); Z87.891 Personal history of nicotine dependence
CPT/HCPCS: J1650; Q9967

== ENCOUNTER 2021-01-09 06:33 | Emergency (ER) | payer MEDICARE, OTHER ==
[~2021-01-09] VITALS: Ht 160 cm; Wt 81.8 kg
[~2021-01-09 06:33] MED LIST changes: +ALENDRONATE SOD70 MG PO; +DEXAMETHASON6 MG PO; +LOSARTAN POTASS50 MG PO; +NORVASC5 M1 PO
[2021-01-09] MEDS ORDERED: KEFLEX500 MG PO (07:00)
[2021-01-09 07:06] VITALS: BP 143/72
== END 2021-01-09 07:15 | disposition home or self-care (01) ==
LOC: ED 06:33
DX: L03.116 Cellulitis of left lower limb (principal); I87.2 Venous insufficiency (chronic) (peripheral); I10 Essential (primary) hypertension; J44.9 Chronic obstructive pulmonary disease, unspecified; Z86.16 Personal history of COVID-19

== ENCOUNTER 2021-04-30 09:43 | Emergency (ER) | payer MEDICARE, OTHER ==
[~2021-04-30] VITALS: Ht 160 cm; Wt 82.0 kg
[2021-04-30] MEDS ORDERED: CALCIUM 600600 M1 PO (10:15)
[2021-04-30] MEDS ORDERED: VITAMIN D3400 UNI2 PO (10:16)
[2021-04-30 10:26] LABS: HEMATOCRIT 44.4 % (37.0-47.0); IMMATURE GRANULOCYTES 0.1 % (0.0-5.0); MEAN CELL VOLUME 96.1 fL CALC (80.0-100.0); MEAN CORPUSCULAR HGB 30.3 pG CALC (26.0-32.0); MEAN CORPUSCULAR HGB CONC 31.5 g/dL CAL (32.0-36.0); NEUT# 4.6 thou/uL (2.00-7.15); RED BLOOD COUNT 4.62 mill/uL (4.20-5.60); RED CELL DISTRI WIDTH 12.2 % (11.5-15.5)
[2021-04-30 10:41] LABS: ALKALINE PHOSPHATASE 85 u/l (38-126); BUN 20 mg/dL (8-23); BUN/CREATININE RATIO 23 (12-20 (CALC)); CHLORIDE 102 mmol/l (95-108); CREATININE 0.9 mg/dL (0.5-1.0); GFR > 60 ML/MIN (>=60 (CALC)); GFR FOR AFR.AMER. > 60 ML/MIN (>=60 (CALC)); LIPASE 82 u/l (23-300); MAGNESIUM 2.1 mg/dL (1.6-2.3); POTASSIUM 3.8 mmol/l (3.5-5.1); SGOT/AST 42 u/l (9-36); SODIUM 141 mmol/l (137-146)
[2021-04-30 10:43] LABS: ALBUMIN 4.7 g/dL (3.2-5.0); ANION GAP 9 (6-22 (CALC)); BILIRUBIN, TOTAL 0.9 mg/dL (0.0-1.4); CARBON DIOXIDE 34 mmol/l (22-30)
[2021-04-30 10:46] LABS: ACT PARTIAL THROMBO TIME 26.1 SECONDS (20.0-32.5); PROTHROMBIN TIME 10.6 SECONDS (9.0-12.5)
[2021-04-30 11:23] LABS: URINE BILIRUBIN - DIPSTICK NEGATIVE (NEGATIVE); URINE BLOOD DIPSTICK NEGATIVE (NEGATIVE); URINE COLOR YELLOW; URINE GLUCOSE - DIPSTICK NEGATIVE (NEGATIVE); URINE KETONE NEGATIVE (NEGATIVE); URINE LEUK ESTERASE NEGATIVE (NEGATIVE); URINE PH 6.5 (4.5-8.0); URINE PROTEIN - DIPSTICK NEGATIVE (NEG-TRACE); URINE UROBILINOGEN - DIPSTICK 0.2 E.U./dL (0.2)
[2021-04-30 11:26] LABS: URINE NITRITE - DIPSTICK NEGATIVE (Negative)
[2021-04-30 12:55] VITALS: BP 123/78
[2021-05-01] MEDS ORDERED: PROMETHAZINE HY25 M1 PO (22:05)
[2021-05-01] MEDS ORDERED: BACTRIM DS1 TAB PO (22:05)
== END 2021-04-30 13:04 | disposition home or self-care (01) ==
LOC: ED 09:43
DX: R53.83 Other fatigue (principal); I10 Essential (primary) hypertension; J44.9 Chronic obstructive pulmonary disease, unspecified; Z86.16 Personal history of COVID-19; Z20.822 Contact with and (suspected) exposure to COVID-19

== ENCOUNTER 2021-05-01 16:13 | Emergency (ER) | payer MEDICARE, OTHER ==
[~2021-05-01] VITALS: Ht 160 cm; Wt 81.8 kg
[~2021-05-01 16:13] MED LIST changes: +CALCIUM 600600 M1 PO; +VITAMIN D3400 UNI2 PO
[2021-05-01 17:43] LABS: HEMATOCRIT 45.2 % (37.0-47.0); HEMOGLOBIN 14.2 g/dl (12.0-16.0); IMMATURE GRANULOCYTES 0.1 % (0.0-5.0); MEAN CELL VOLUME 96.8 fL CALC (80.0-100.0); MEAN CORPUSCULAR HGB 30.4 pG CALC (26.0-32.0); MEAN CORPUSCULAR HGB CONC 31.4 g/dL CAL (32.0-36.0); NEUT# 6.39 thou/uL (2.00-7.15); RED BLOOD COUNT 4.67 mill/uL (4.20-5.60); RED CELL DISTRI WIDTH 12.2 % (11.5-15.5)
[2021-05-01 17:49] LABS: ALBUMIN 4.7 g/dL (3.2-5.0); ALKALINE PHOSPHATASE 96 u/l (38-126); ANION GAP 10 (6-22 (CALC)); BILIRUBIN, TOTAL 1.1 mg/dL (0.0-1.4); BUN 24 mg/dL (8-23); BUN/CREATININE RATIO 28 (12-20 (CALC)); CARBON DIOXIDE 33 mmol/l (22-30); CHLORIDE 101 mmol/l (95-108); CREATININE 0.9 mg/dL (0.5-1.0); GFR > 60 ML/MIN (>=60 (CALC)); GFR FOR AFR.AMER. > 60 ML/MIN (>=60 (CALC)); POTASSIUM 4.1 mmol/l (3.5-5.1); SGOT/AST 56 u/l (9-36); SODIUM 140 mmol/l (137-146); TOTAL PROTEIN 9.2 g/dL (6.3-8.2)
[2021-05-01 19:33] LABS: AMYLASE 87 u/l (30-110); LIPASE 83 u/l (23-300)
[2021-05-01 21:23] LABS: URINE BILIRUBIN - DIPSTICK NEGATIVE (NEGATIVE); URINE BLOOD DIPSTICK NEGATIVE (NEGATIVE); URINE COLOR YELLOW; URINE GLUCOSE - DIPSTICK NEGATIVE (NEGATIVE); URINE KETONE TRACE mg/dL (NEGATIVE); URINE PH 6.5 (4.5-8.0); URINE PROTEIN - DIPSTICK NEGATIVE (NEG-TRACE); URINE UROBILINOGEN - DIPSTICK 0.2 E.U./dL (0.2)
[2021-05-01 21:28] LABS: URINE LEUK ESTERASE SMALL (NEGATIVE); URINE NITRITE - DIPSTICK POSITIVE (Negative)
[2021-05-01 21:44] LABS: URINE BACTERIA MANY hpf; URINE SQUAMOUS EPITHELIAL CELL FEW EPI/hpf (0-FEW)
[2021-05-01] MEDS ORDERED: BACTRIM DS1 TAB PO (22:05)
[2021-05-01] MEDS ORDERED: PROMETHAZINE HY25 M1 PO (22:05)
[2021-05-01 22:14] VITALS: BP 103/59
== END 2021-05-01 22:40 | disposition home or self-care (01) ==
LOC: ED 16:13
PROVIDERS: Family Medicine
DX: K52.9 Noninfective gastroenteritis and colitis, unspecified (principal); N39.0 Urinary tract infection, site not specified; E11.9 Type 2 diabetes mellitus without complications; I10 Essential (primary) hypertension; J44.9 Chronic obstructive pulmonary disease, unspecified; B96.20 Unspecified Escherichia coli [E. coli] as the cause of diseases classified elsewhere; Z86.16 Personal history of COVID-19

== ENCOUNTER 2021-05-17 04:14 | Observation (INO) | payer MEDICARE, OTHER ==
[~2021-05-17] VITALS: Ht 160 cm; Wt 80.0 kg
[~2021-05-17 04:14] MED LIST changes: +PROMETHAZINE HY25 M1 PO
--- NOTE | 2021-05-17 04:15 | NUR ---
PT HERE VIA EMS FOR SOB
[2021-05-17 04:41] LABS: HEMATOCRIT 39.4 % (37.0-47.0); HEMOGLOBIN 12.5 g/dl (12.0-16.0); MEAN CELL VOLUME 94.9 fL CALC (80.0-100.0); MEAN CORPUSCULAR HGB 30.1 pG CALC (26.0-32.0); MEAN CORPUSCULAR HGB CONC 31.7 g/dL CAL (32.0-36.0); NEUT# 13.53 thou/uL (2.00-7.15); RED BLOOD COUNT 4.15 mill/uL (4.20-5.60); RED CELL DISTRI WIDTH 12.6 % (11.5-15.5)
--- NOTE | 2021-05-17 04:51 | NUR ---
BREATHING TX GIVEN.
[2021-05-17 04:53] LABS: ALBUMIN 3.9 g/dL (3.2-5.0); ALKALINE PHOSPHATASE 108 u/l (38-126); ANION GAP 12 (6-22 (CALC)); BILIRUBIN, TOTAL 1.2 mg/dL (0.0-1.4); BUN 21 mg/dL (8-23); BUN/CREATININE RATIO 25 (12-20 (CALC)); CARBON DIOXIDE 26 mmol/l (22-30); CHLORIDE 104 mmol/l (95-108); CREATININE 0.9 mg/dL (0.5-1.0); GFR > 60 ML/MIN (>=60 (CALC)); GFR FOR AFR.AMER. > 60 ML/MIN (>=60 (CALC)); POTASSIUM 3.5 mmol/l (3.5-5.1); SGOT/AST 36 u/l (9-36); SODIUM 138 mmol/l (137-146); TOTAL PROTEIN 7.8 g/dL (6.3-8.2)
[2021-05-17 05:02] LABS: ACT PARTIAL THROMBO TIME 23.4 SECONDS (20.0-32.5); INTERNATIONAL NORMALIZED RATIO 1.1 RATIO (0.7-1.3)
[2021-05-17 05:04] LABS: MYOGLOBIN 94 ng/mL (0 - 62)
--- NOTE | 2021-05-17 05:15 | NUR ---
URINE OBTAINED VIA STRAIGHT CATH, STERILE TECHNIQUE, PT TOLERATED WELL.
[2021-05-17 05:18] LABS: D-DIMER 1.91 mg/L (0.19-0.60)
[2021-05-17 05:45] LABS: URINE BILIRUBIN - DIPSTICK NEGATIVE (NEGATIVE); URINE BLOOD DIPSTICK MODERATE (NEGATIVE); URINE COLOR YELLOW; URINE GLUCOSE - DIPSTICK NEGATIVE (NEGATIVE); URINE KETONE NEGATIVE (NEGATIVE); URINE PROTEIN - DIPSTICK 100 mg/dL (NEG-TRACE); URINE UROBILINOGEN - DIPSTICK 0.2 E.U./dL (0.2)
[2021-05-17 05:46] LABS: URINE LEUK ESTERASE MODERATE (NEGATIVE); URINE NITRITE - DIPSTICK NEGATIVE (Negative)
--- NOTE | 2021-05-17 05:46 | NUR ---
PT RESTING COMFORTABLY. 02 AT 2LPM
[2021-05-17 05:52] LABS: URINE BACTERIA MANY hpf; URINE SQUAMOUS EPITHELIAL CELL FEW EPI/hpf (0-FEW); URINE WBC 20-50 WBC/hpf (0-5)
--- NOTE | 2021-05-17 07:30 | NUR ---
CALLED DAUGHTER TO INFORM HER OF MOTHER'S ADMISSION AND ROOM NUMBER AND ASK IF SHE WOULD RESOURCE SPECIALIST PURSE WITH [facility]. DAUGHTER AGREED.
--- NOTE | 2021-05-17 07:42 | NUR ---
REPORT RECIEVED FROM DAMIÁN ALTAMIRANO
--- NOTE | 2021-05-17 07:47 | NUR ---
REPORT GIVEN TO KEEGAN, ROOM 261.
--- NOTE | 2021-05-17 07:53 | NUR ---
PT ARRIVED VIA STRECTCHER WITH DAMIÁN ALTAMIRANO AND SUPERVISOR SOLDERING STUDENT. PT ARRIVED WITH O2 @3L VIA NC BREATHING EVEN AND UNLABORED. PT STATES FEELS REALLY TIRED. LEVIQUAN ALSO HANGING UPON ARRIVAL. ORIENTATED PT TO ROOM. CALL LIGHT AND FALL/SAFTEY PRECAUTIONS IN PLACE. CALL LIGHT WITHIN REACH. IV LOCATED ON [facility] SITE.
[2021-05-17 09:16] VITALS: BP 107/61
--- NOTE | 2021-05-17 09:42 | NUR ---
ASSESSMENT ALLOWED AT THIS TIME. LUNG SOUNDS WHEEZING ON RLL AND RUL. CLEAR/DIMINISHED MARCIE AND LLL. HEART SOUNDS ARE REGULAR. BOWEL SOUNDS ACTIVE X4. EDEMA LOCATED ON LOWER LEGS BILATERALLY TRACE, TOES ON THE LEFT FOOT ARE SIDEWAYS FROM ARTHIRITIS. SKIN INTACT, SMALL SLIGHT BRUISES ON LOWER LEGS. LITTLE LUMP ABOVE THE BELLY BUTTON. PT STATES IS JUST THERE. RADIAL AND PEDAL PULSE STRONG BILATERALLY. PT STATES NO PAIN AT THIS TIME. CALL LIGHT WITHIN REACH. FALL/SAFTEY PRECAUTIONS IN PLACE.
[2021-05-17] MEDS ORDERED: METFORMIN500 M2 PO (13:49)
[2021-05-17] MEDS ORDERED: PREDNISONE10 MG PO (13:49)
[2021-05-17] MEDS ORDERED: LEVAQUIN750 M1 PO (13:49)
--- NOTE | 2021-05-17 13:58 | NUR ---
PT SITTING SEMI ORNELAS POSITION. STATES NO PAIN AT THIS TIME. O2 IN PLACE @3L VIA NC. BREATHING EVEN AND UNLABORED. NO DISTRESS NOTED. FALL/SAFTEY PRECAUTIONS IN PLACE. CALL LIGHT WITHIN REACH
--- NOTE | 2021-05-17 15:20 | NUR ---
Discharge instructions given. Patient verbalizes understanding of same. Discharged in stable condition via Wheelchair to [facility] with staff (CLASSIFICATIONS OFFICER CC/CM). All belongings sent with pt. removed iv catheter intact. INSTRUCTIONS GIVEN TO DAUGHTER WELL.
--- NOTE | 2021-05-19 10:18 | NUR ---
PRELIMINARY BC SHOWS GRAM(+) COCCI IN 2/4 VIALS. POSSIBLE CONTAMINATION. REPORTED TO DR AMAYA - NO NEW ORDERS WHILE AWAITING FINAL RESULTS.
--- NOTE | 2021-05-23 12:11 | NUR ---
Pneumonia post discharge follow up call completed today. Pt. is doing well per daughter. No fever, chills, or SOB. Pt. is taking prescribed discharge meds witout issue. Follow up appt with PCP scheduled for today. No questions or concerns.
== END 2021-05-17 15:20 | disposition home health service (06) ==
LOC: ED 04:14 → ED-I 06:52 → ED 07:07 → MS2 07:08
PROVIDERS: Family Medicine; ADMIT Hospitalist; ATTEND Hospitalist
DX: J44.1 Chronic obstructive pulmonary disease with (acute) exacerbation (principal); N39.0 Urinary tract infection, site not specified; I10 Essential (primary) hypertension; J96.20 Acute and chronic respiratory failure, unspecified whether with hypoxia or hypercapnia; K21.9 Gastro-esophageal reflux disease without esophagitis; R73.03 Prediabetes; B96.20 Unspecified Escherichia coli [E. coli] as the cause of diseases classified elsewhere; Z86.16 Personal history of COVID-19; Z99.81 Dependence on supplemental oxygen; Z95.820 Peripheral vascular angioplasty status with implants and grafts; Z87.891 Personal history of nicotine dependence; Z20.822 Contact with and (suspected) exposure to COVID-19
CPT/HCPCS: G0378; J1650; Q9967

== ENCOUNTER 2021-07-23 09:12 | Emergency (ER) | payer MEDICARE, OTHER ==
[2021-07-23] VITALS (11 sets, daily range): BP systolic 101–148; BP diastolic 58–85
[~2021-07-23] VITALS: Ht 160 cm; Wt 64.4 kg
[~2021-07-23 09:12] MED LIST changes: +LEVAQUIN750 M1 PO; +METFORMIN500 M2 PO
[2021-07-23] MEDS ORDERED: PREDNISONE20 MG PO (12:50)
[2021-07-23] MEDS ORDERED: IPRATROPIU0.5 MG/3 M IN (12:50)
== END 2021-07-23 13:12 | disposition home or self-care (01) ==
LOC: ED 09:12
DX: J43.9 Emphysema, unspecified (principal); J96.10 Chronic respiratory failure, unspecified whether with hypoxia or hypercapnia; I10 Essential (primary) hypertension; E11.9 Type 2 diabetes mellitus without complications; K21.9 Gastro-esophageal reflux disease without esophagitis; Z79.84 Long term (current) use of oral hypoglycemic drugs; Z86.16 Personal history of COVID-19

== ENCOUNTER 2021-11-26 22:28 | Emergency (ER) | payer MEDICARE, OTHER ==
[~2021-11-26] VITALS: Ht 160 cm; Wt 78.2 kg
[2021-11-26 22:35] VITALS: BP 150/83
[2021-11-26 22:45] VITALS: BP 129/70
[2021-11-26] MEDS ORDERED: OXYBUTYNIN CHLOR5 M1 PO (22:50)
[2021-11-26] MEDS ORDERED: MOTRIN800 MG PO (22:52)
[2021-11-26] MEDS ORDERED: FUROSEMIDE20 MG PO (22:53)
[2021-11-26] MEDS ORDERED: K-TABS10 MEQ PO (22:54)
[2021-11-27 00:07] VITALS: BP 129/70
== END 2021-11-27 00:23 | disposition home or self-care (01) ==
LOC: ED 22:28
DX: S40.022A Contusion of left upper arm, initial encounter (principal); S60.042A Contusion of left ring finger without damage to nail, initial encounter; S90.32XA Contusion of left foot, initial encounter; S20.212A Contusion of left front wall of thorax, initial encounter; J44.1 Chronic obstructive pulmonary disease with (acute) exacerbation; I10 Essential (primary) hypertension; E11.9 Type 2 diabetes mellitus without complications; K21.9 Gastro-esophageal reflux disease without esophagitis; J96.10 Chronic respiratory failure, unspecified whether with hypoxia or hypercapnia; W18.30XA Fall on same level, unspecified, initial encounter; Y92.000 Kitchen of unspecified non-institutional (private) residence as the place of occurrence of the external cause; Z86.16 Personal history of COVID-19; Z79.84 Long term (current) use of oral hypoglycemic drugs

== ENCOUNTER 2022-04-04 11:19 | Observation (INO) | payer MEDICARE, OTHER ==
[~2022-04-04] VITALS: Ht 160 cm; Wt 77.0 kg
[2022-04-04] VITALS (52 sets, daily range): BP systolic 52–136; BP diastolic 34–82
[~2022-04-04 11:19] MED LIST changes: +FUROSEMIDE20 MG PO; +K-TABS10 MEQ PO; +OXYBUTYNIN CHLOR5 M1 PO
[2022-04-04 11:52] LABS: HEMATOCRIT 43.3 % (37.0-47.0); HEMOGLOBIN 13.8 g/dl (12.0-16.0); IMMATURE GRANULOCYTES 0.1 % (0.0-5.0); MEAN CELL VOLUME 94.3 fL CALC (80.0-100.0); MEAN CORPUSCULAR HGB 30.1 pG CALC (26.0-32.0); MEAN CORPUSCULAR HGB CONC 31.9 g/dL CAL (32.0-36.0); NEUT# 5.36 thou/uL (2.00-7.15); RED BLOOD COUNT 4.59 mill/uL (4.20-5.60); RED CELL DISTRI WIDTH 12.9 % (11.5-15.5)
[2022-04-04 12:02] LABS: ALBUMIN 4.9 g/dL (3.2-5.0); ALKALINE PHOSPHATASE 113 u/l (38-126); ANION GAP 18 (6-22 (CALC)); BILIRUBIN, TOTAL 0.9 mg/dL (0.0-1.4); BUN 22 mg/dL (8-23); BUN/CREATININE RATIO 24 (12-20 (CALC)); CARBON DIOXIDE 28 mmol/l (22-30); CHLORIDE 102 mmol/l (95-108); CREATININE 0.9 mg/dL (0.5-1.0); GFR FOR AFR.AMER. > 60 ML/MIN (>=60 (CALC)); GFR OTHER RACES > 60 ML/MIN (>=60 (CALC)); POTASSIUM 4.2 mmol/l (3.5-5.1); SGOT/AST 40 u/l (9-36); SODIUM 144 mmol/l (137-146); TOTAL PROTEIN 8.8 g/dL (6.3-8.2)
[2022-04-05] VITALS (27 sets, daily range): BP systolic 95–129; BP diastolic 54–85
[2022-04-05 05:58] LABS: HEMOGLOBIN 13.6 g/dl (12.0-16.0); MEAN CELL VOLUME 93.3 fL CALC (80.0-100.0); MEAN CORPUSCULAR HGB 30.2 pG CALC (26.0-32.0); MEAN CORPUSCULAR HGB CONC 32.4 g/dL CAL (32.0-36.0); RED BLOOD COUNT 4.5 mill/uL (4.20-5.60); RED CELL DISTRI WIDTH 12.6 % (11.5-15.5)
[2022-04-05 06:23] LABS: ANION GAP 13 (6-22 (CALC)); BUN 22 mg/dL (8-23); BUN/CREATININE RATIO 35 (12-20 (CALC)); CARBON DIOXIDE 25 mmol/l (22-30); CHLORIDE 105 mmol/l (95-108); CREATININE 0.6 mg/dL (0.5-1.0); GFR FOR AFR.AMER. > 60 ML/MIN (>=60 (CALC)); GFR OTHER RACES > 60 ML/MIN (>=60 (CALC)); MAGNESIUM 2.2 mg/dL (1.6-2.3); POTASSIUM 4.3 mmol/l (3.5-5.1); SODIUM 139 mmol/l (137-146)
[2022-04-06 05:06] VITALS: BP 113/61
[2022-04-06 06:57] VITALS: BP 122/61
[2022-04-06] MEDS ORDERED: PREDNISONE10 MG PO (09:55)
[2022-04-06] MEDS ORDERED: ZITHROMAX250 MG PO (09:56)
[2022-04-06 10:13] VITALS: BP 106/64
== END 2022-04-06 13:14 | disposition home or self-care (01) ==
LOC: ED 11:19 → ED-I 11:49 → ED 13:23 → ICU 13:24 → MS2 13:24
PROVIDERS: Family Medicine; ADMIT Internal Medicine; ATTEND Internal Medicine
DX: J44.1 Chronic obstructive pulmonary disease with (acute) exacerbation (principal); J96.11 Chronic respiratory failure with hypoxia; I10 Essential (primary) hypertension; E11.9 Type 2 diabetes mellitus without complications; K21.9 Gastro-esophageal reflux disease without esophagitis; Z86.16 Personal history of COVID-19; Z79.84 Long term (current) use of oral hypoglycemic drugs; Z99.81 Dependence on supplemental oxygen; Z87.891 Personal history of nicotine dependence; Z20.822 Contact with and (suspected) exposure to COVID-19
CPT/HCPCS: J1650

== ENCOUNTER 2022-08-29 17:41 | Emergency (ER) | payer MEDICARE, OTHER ==
[~2022-08-29] VITALS: Ht 160 cm; Wt 78.0 kg
[2022-08-29 18:04] VITALS: BP 133/80
[2022-08-29] MEDS ORDERED: METFORMIN HCL500 M1 PO (18:14)
[2022-08-29 18:15] VITALS: BP 119/73
[2022-08-29 18:45] VITALS: BP 114/64
[2022-08-29 19:00] VITALS: BP 119/72
[2022-08-29 19:15] VITALS: BP 133/78
[2022-08-29] MEDS ORDERED: TAM75CAP PO (19:19)
== END 2022-08-29 19:26 | disposition home or self-care (01) ==
LOC: ED 17:41
DX: J10.1 Influenza due to other identified influenza virus with other respiratory manifestations (principal); I10 Essential (primary) hypertension; E11.9 Type 2 diabetes mellitus without complications; K21.9 Gastro-esophageal reflux disease without esophagitis; J44.9 Chronic obstructive pulmonary disease, unspecified; J96.10 Chronic respiratory failure, unspecified whether with hypoxia or hypercapnia; Z86.16 Personal history of COVID-19; Z79.84 Long term (current) use of oral hypoglycemic drugs; Z20.822 Contact with and (suspected) exposure to COVID-19

== ENCOUNTER 2022-09-07 20:30 | Emergency (ER) | payer MEDICARE, OTHER ==
[2022-09-07] VITALS (10 sets, daily range): BP systolic 112–139; BP diastolic 60–98
[~2022-09-07] VITALS: Ht 160 cm; Wt 77.1 kg
[~2022-09-07 20:30] MED LIST changes: +METFORMIN HCL500 M1 PO; +TAM75CAP PO
[2022-09-07 21:14] LABS: ANION GAP 13 (6-22 (CALC)); BUN 23 mg/dL (8-23); BUN/CREATININE RATIO 30 (12-20 (CALC)); CARBON DIOXIDE 31 mmol/l (22-30); CHLORIDE 102 mmol/l (95-108); CREATININE 0.8 mg/dL (0.5-1.0); GFR FOR AFR.AMER. > 60 ML/MIN (>=60 (CALC)); GFR OTHER RACES > 60 ML/MIN (>=60 (CALC)); POTASSIUM 4.3 mmol/l (3.5-5.1); SODIUM 141 mmol/l (137-146)
[2022-09-07 21:24] LABS: URINE BILIRUBIN - DIPSTICK NEGATIVE (NEGATIVE); URINE BLOOD DIPSTICK LARGE (NEGATIVE); URINE COLOR YELLOW; URINE GLUCOSE - DIPSTICK NEGATIVE (NEGATIVE); URINE KETONE NEGATIVE (NEGATIVE); URINE PROTEIN - DIPSTICK 100 mg/dL (NEG-TRACE); URINE UROBILINOGEN - DIPSTICK 0.2 E.U./dL (0.2)
[2022-09-07 21:27] LABS: URINE LEUK ESTERASE MODERATE (NEGATIVE); URINE NITRITE - DIPSTICK POSITIVE (Negative)
[2022-09-07 21:31] LABS: URINE SQUAMOUS EPITHELIAL CELL FEW EPI/hpf (0-FEW); URINE WBC TNTC WBC/hpf (0-5)
[2022-09-07] MEDS ORDERED: BACTRIM DS1 TAB PO (21:36)
[2022-09-07] MEDS ORDERED: PYRIDIUM200 MG PO (21:36)
== END 2022-09-07 23:08 | disposition home or self-care (01) ==
LOC: ED 20:30
PROVIDERS: Family Medicine
DX: N39.0 Urinary tract infection, site not specified (principal); B96.89 Other specified bacterial agents as the cause of diseases classified elsewhere; I10 Essential (primary) hypertension; E11.9 Type 2 diabetes mellitus without complications; K21.9 Gastro-esophageal reflux disease without esophagitis; J44.9 Chronic obstructive pulmonary disease, unspecified; J96.10 Chronic respiratory failure, unspecified whether with hypoxia or hypercapnia; Z86.16 Personal history of COVID-19; Z79.84 Long term (current) use of oral hypoglycemic drugs

== ENCOUNTER 2022-10-31 23:11 | Emergency (ER) | payer MEDICARE, OTHER ==
[~2022-10-31] VITALS: Ht 160 cm; Wt 85.0 kg
[~2022-10-31 23:11] MED LIST changes: +PYRIDIUM200 MG PO
[2022-11-01] VITALS: BP 128/71
[2022-11-01 00:13] LABS: BASO% 0.4 % (0-3); EOS% 2.2 % (0-8); HEMOGLOBIN 12.4 g/dl (12.0-16.0); IMMATURE GRANULOCYTES 0.6 % (0.0-5.0); LYMPH% 23.1 % (15-41); MEAN CELL VOLUME 95.7 fL CALC (80.0-100.0); MEAN CORPUSCULAR HGB 29.7 pG CALC (26.0-32.0); MONO% 6.3 % (2-13); NEUT# 6.77 thou/uL (2.00-7.15); NEUT% 67.4 % (42-76); RED BLOOD COUNT 4.18 mill/uL (4.20-5.60)
[2022-11-01 00:31] LABS: ALBUMIN 4.1 g/dL (3.2-5.0); ALKALINE PHOSPHATASE 101 u/l (38-126); ANION GAP 11 (6-22 (CALC)); BILIRUBIN, TOTAL 0.7 mg/dL (0.02-1.3); BUN 21 mg/dL (8-23); BUN/CREATININE RATIO 24 (12-20 (CALC)); CARBON DIOXIDE 33 mmol/l (22-30); CHLORIDE 98 mmol/l (95-108); CREATININE 0.9 mg/dL (0.5-1.0); GFR FOR AFR.AMER. > 60 ML/MIN (>=60 (CALC)); GFR OTHER RACES > 60 ML/MIN (>=60 (CALC)); LIPASE 211 u/l (23-300); SGOT/AST 30 u/l (9-36); SODIUM 139 mmol/l (137-146); TOTAL PROTEIN 7.5 g/dL (6.3-8.2)
[2022-11-01 00:47] LABS: POTASSIUM 3.2 mmol/l (3.5-5.1)
[2022-11-01 01:00] VITALS: BP 137/81
[2022-11-01 02:38] VITALS: BP 108/63
[2022-11-01 02:45] LABS: URINE BILIRUBIN - DIPSTICK NEGATIVE (NEGATIVE); URINE BLOOD DIPSTICK NEGATIVE (NEGATIVE); URINE COLOR YELLOW; URINE GLUCOSE - DIPSTICK NEGATIVE (NEGATIVE); URINE KETONE NEGATIVE (NEGATIVE); URINE PROTEIN - DIPSTICK TRACE mg/dL (NEG-TRACE); URINE UROBILINOGEN - DIPSTICK 0.2 E.U./dL (0.2)
[2022-11-01 02:52] LABS: URINE LEUK ESTERASE MODERATE (NEGATIVE); URINE NITRITE - DIPSTICK NEGATIVE (Negative)
[2022-11-01 02:56] LABS: URINE BACTERIA FEW hpf; URINE CALCIUM OXALATE CRYSTALS FEW lpf; URINE MUCUS FEW hpf (NONE-FEW); URINE SQUAMOUS EPITHELIAL CELL MANY EPI/hpf (0-FEW)
[2022-11-01 03:00] VITALS: BP 136/68
[2022-11-01 03:09] VITALS: BP 136/68
== END 2022-11-01 03:21 | disposition home or self-care (01) ==
LOC: ED 23:11
PROVIDERS: Emergency Medicine
DX: R10.33 Periumbilical pain (principal); R10.31 Right lower quadrant pain; I10 Essential (primary) hypertension; E11.9 Type 2 diabetes mellitus without complications; J44.9 Chronic obstructive pulmonary disease, unspecified; J96.10 Chronic respiratory failure, unspecified whether with hypoxia or hypercapnia; Z87.891 Personal history of nicotine dependence; Z88.8 Allergy status to other drugs, medicaments and biological substances; Z86.16 Personal history of COVID-19; Z79.84 Long term (current) use of oral hypoglycemic drugs
CPT/HCPCS: Q9967

== ENCOUNTER 2023-01-16 16:02 | Emergency (ER) | payer MEDICARE, MEDICAID ==
[2023-01-16] VITALS (28 sets, daily range): BP systolic 106–136; BP diastolic 55–84
[~2023-01-16] VITALS: Ht 160 cm; Wt 61.7 kg
[2023-01-16 17:02] LABS: BASO% 0.8 % (0-3); EOS% 3.2 % (0-8); HEMATOCRIT 38.8 % (37.0-47.0); HEMOGLOBIN 12.4 g/dl (12.0-16.0); IMMATURE GRANULOCYTES 0.2 % (0.0-5.0); LYMPH% 24.5 % (15-41); MEAN CELL VOLUME 97.2 fL CALC (80.0-100.0); MEAN CORPUSCULAR HGB 31.1 pG CALC (26.0-32.0); MONO% 5.7 % (2-13); NEUT# 6.09 thou/uL (2.00-7.15); NEUT% 65.6 % (42-76); RED BLOOD COUNT 3.99 mill/uL (4.20-5.60); RED CELL DISTRI WIDTH 12.5 % (11.5-15.5)
[2023-01-16 17:21] LABS: ALBUMIN 3.9 g/dL (3.2-5.0); ALKALINE PHOSPHATASE 77 u/l (38-126); BUN 19 mg/dL (8-23); BUN/CREATININE RATIO 22 (12-20 (CALC)); CHLORIDE 100 mmol/l (95-108); CREATININE 0.8 mg/dL (0.5-1.0); GFR FOR AFR.AMER. > 60 ML/MIN (>=60 (CALC)); GFR OTHER RACES > 60 ML/MIN (>=60 (CALC)); POTASSIUM 3.4 mmol/l (3.5-5.1); SGOT/AST 27 u/l (9-36); SODIUM 139 mmol/l (137-146); TOTAL PROTEIN 6.8 g/dL (6.3-8.2)
[2023-01-16 17:24] LABS: ANION GAP 8 (6-22 (CALC)); CARBON DIOXIDE 34 mmol/l (22-30)
[2023-01-16 21:53] LABS: URINE BILIRUBIN - DIPSTICK Negative (NEGATIVE); URINE BLOOD DIPSTICK Negative (NEGATIVE); URINE GLUCOSE - DIPSTICK Negative (NEGATIVE); URINE KETONE 15 mg/dL (NEGATIVE); URINE NITRITE - DIPSTICK Negative (Negative); URINE PH 8.5 (4.5-8.0); URINE PROTEIN - DIPSTICK Negative (NEG-TRACE); URINE UROBILINOGEN - DIPSTICK 0.2 E.U./dL (0.2)
[2023-01-16 21:55] LABS: URINE COLOR Yellow; URINE LEUK ESTERASE Moderate (NEGATIVE)
[2023-01-16 22:08] LABS: URINE SQUAMOUS EPITHELIAL CELL FEW EPI/hpf (0-FEW)
[2023-01-16] MEDS ORDERED: KEFLEX500 MG PO (23:22)
[2023-01-17] VITALS: BP 128/77
[2023-01-17 00:15] VITALS: BP 122/63
[2023-01-17 00:30] VITALS: BP 134/73
[2023-01-17 00:45] VITALS: BP 118/66
== END 2023-01-17 01:18 | disposition home or self-care (01) ==
LOC: ED 16:02
PROVIDERS: Family Medicine
DX: J43.9 Emphysema, unspecified (principal); N39.0 Urinary tract infection, site not specified; I10 Essential (primary) hypertension; E11.9 Type 2 diabetes mellitus without complications; K21.9 Gastro-esophageal reflux disease without esophagitis; Z79.84 Long term (current) use of oral hypoglycemic drugs

== ENCOUNTER 2023-01-29 11:12 | Day surgery (SDC) | payer MEDICARE, MEDICAID ==
[~2023-01-29] VITALS: Ht 160 cm; Wt 60.8 kg
[2023-01-29 13:36] VITALS: BP 133/78
== END 2023-01-29 13:50 | disposition home or self-care (01) ==
LOC: ENDO 11:12 → ORM 15:45 → ENDO 15:45
PROVIDERS: ATTEND Internal Medicine Gastroenterology
PROC: 0DB78ZX Excision of Stomach, Pylorus, Via Natural or Artificial Opening Endoscopic, Diagnostic (ICD-10-PCS; principal; 2023-01-29)
DX: J38.7 Other diseases of larynx (principal); K29.50 Unspecified chronic gastritis without bleeding; B96.81 Helicobacter pylori [H. pylori] as the cause of diseases classified elsewhere; I10 Essential (primary) hypertension; J44.9 Chronic obstructive pulmonary disease, unspecified; Z95.5 Presence of coronary angioplasty implant and graft; Z87.891 Personal history of nicotine dependence

== ENCOUNTER 2023-12-24 16:53 | Observation (INO) | payer MEDICARE, MEDICAID ==
[~2023-12-24] VITALS: Ht 160 cm; Wt 54.4 kg
[~2023-12-24 16:53] MED LIST changes: +MUPIROCIN2 % EX; +PREDNISONE50 MG PO; +VIBRAMYCIN100 M2 PO
[2023-12-24] MEDS ORDERED: ASPIRIN 81 MG/TAB PO ONE (17:20)
[2023-12-24 17:51] LABS: BASO% 0.4 % (0-3); EOS% 3.4 % (0-8); HEMATOCRIT 35.4 % (37.0-47.0); HEMOGLOBIN 11.4 g/dl (12.0-16.0); IMMATURE GRANULOCYTES 0.2 % (0.0-5.0); LYMPH% 20.8 % (15-41); MEAN CELL VOLUME 96.2 fL CALC (80.0-100.0); MEAN CORPUSCULAR HGB CONC 32.2 g/dL CAL (32.0-36.0); MONO% 8.1 % (2-13); NEUT# 3.54 thou/uL (2.00-7.15); NEUT% 67.1 % (42-76); RED BLOOD COUNT 3.68 mill/uL (4.20-5.60); RED CELL DISTRI WIDTH 12.9 % (11.5-15.5)
[2023-12-24 18:01] LABS: ALKALINE PHOSPHATASE 89 u/l (38-126); ANION GAP 8 (6-22 (CALC)); BUN 36 mg/dL (8-23); BUN/CREATININE RATIO 54 (12-20 (CALC)); CARBON DIOXIDE 27 mmol/l (22-30); CHLORIDE 106 mmol/l (95-108); CREATININE 0.7 mg/dL (0.5-1.0); ESTIMATED GFR 93 ML/MIN (>=90 (CALC)); SGOT/AST 34 u/l (9-36); SODIUM 137 mmol/l (137-146)
[2023-12-24 18:02] LABS: ALBUMIN 4.3 g/dL (3.2-5.0); BILIRUBIN, TOTAL 0.5 mg/dL (0.02-1.3); TOTAL PROTEIN 8.1 g/dL (6.3-8.2)
[2023-12-24] MEDS ORDERED: Zaleplon 5 MG/CAP PO PRN (20:55)
[2023-12-24] MEDS ORDERED: ACETAMINOPHEN 325 MG/TAB PO PRN (20:55)
[2023-12-24] MEDS ORDERED: MAGNESIUM HYDROXIDE 30 ML UDC PO PRN (20:55)
[2023-12-24] MEDS ORDERED: ENOXAPARIN SODIUM 40 MG/0.4 ML SYR SC SCH (21:00)
[2023-12-24 23:58] VITALS: BP 114/61
[2023-12-25] VITALS (12 sets, daily range): BP systolic 111–125; BP diastolic 59–74
[2023-12-25] MEDS ORDERED: AMLODIPINE BESY10 MG PO (01:57)
[2023-12-25] MEDS ORDERED: OXYBUTYNIN CHLOR5 M2 PO (01:57)
[2023-12-25] MEDS ORDERED: LOSARTAN POTAS100 MG PO (01:58)
[2023-12-25] MEDS ORDERED: POT CHLORIDE20 ME2 PO (01:59)
[2023-12-25 05:30] LABS: BASO% 0.7 % (0-3); EOS% 3.8 % (0-8); HEMATOCRIT 34.4 % (37.0-47.0); HEMOGLOBIN 11.4 g/dl (12.0-16.0); IMMATURE GRANULOCYTES 0.2 % (0.0-5.0); LYMPH% 21.7 % (15-41); MEAN CELL VOLUME 96.1 fL CALC (80.0-100.0); MEAN CORPUSCULAR HGB 31.8 pG CALC (26.0-32.0); MEAN CORPUSCULAR HGB CONC 33.1 g/dL CAL (32.0-36.0); MONO% 8.1 % (2-13); NEUT# 2.89 thou/uL (2.00-7.15); NEUT% 65.5 % (42-76); RED BLOOD COUNT 3.58 mill/uL (4.20-5.60)
[2023-12-25 05:42] LABS: ALBUMIN 3.9 g/dL (3.2-5.0); BILIRUBIN, TOTAL 0.7 mg/dL (0.02-1.3); CREATININE 0.6 mg/dL (0.5-1.0); POTASSIUM 3.5 mmol/l (3.5-5.1); TOTAL PROTEIN 7.2 g/dL (6.3-8.2)
[2023-12-25] MEDS ORDERED: SODIUM CHLORIDE 0.9% 1,000 ML IV PRN (08:35)
[2023-12-25] MEDS ORDERED: MONTELUKAST SODIUM 10 MG/TAB PO SCH (09:00)
[2023-12-25] MEDS ORDERED: LOSARTAN Potassium 50 MG/TAB PO SCH (09:00)
[2023-12-25] MEDS ORDERED: FUROSEMIDE 20 MG/TAB PO SCH (09:00)
[2023-12-25] MEDS ORDERED: methylPREDNISolone Sod Succ 40 MG/ML SDV IV SCH (09:00)
[2023-12-25] MEDS ORDERED: amLODIPine BESYLATE 5 MG/TAB PO SCH (09:00)
[2023-12-25] MEDS ORDERED: POTASSIUM CHLORIDE 10 MEQ/TAB PO SCH (09:00)
[2023-12-25] MEDS ORDERED: AZITHROMYCIN 500 MG in SODIUM CHLORIDE 0.9% 250 ML IV SCH (10:00)
[2023-12-25] MEDS ORDERED: IPRATROPIUM-Albuterol 0.5MG-2.5MG/3 ML NEB PRN (11:30)
[2023-12-26 03:32] VITALS: BP 116/56
[2023-12-26 03:54] VITALS: BP 116/56
[2023-12-26 06:59] VITALS: BP 118/66
[2023-12-26] MEDS ORDERED: ZPAK PO (08:45)
[2023-12-26] MEDS ORDERED: MEDDOSEPAK PO (08:46)
[2023-12-26 11:10] VITALS: BP 124/78
== END 2023-12-26 15:15 | disposition home or self-care (01) ==
LOC: ED 16:53 → ED-I 20:30 → ED 20:52 → MS2 20:53
PROVIDERS: Family Medicine; Nurse Practitioner Family; ADMIT Internal Medicine; ATTEND Internal Medicine
DX: J44.1 Chronic obstructive pulmonary disease with (acute) exacerbation (principal); J96.11 Chronic respiratory failure with hypoxia; I10 Essential (primary) hypertension; E11.9 Type 2 diabetes mellitus without complications; J43.9 Emphysema, unspecified; I25.10 Atherosclerotic heart disease of native coronary artery without angina pectoris; K21.9 Gastro-esophageal reflux disease without esophagitis; Z85.819 Personal history of malignant neoplasm of unspecified site of lip, oral cavity, and pharynx; Z99.81 Dependence on supplemental oxygen; Z87.891 Personal history of nicotine dependence; Z20.822 Contact with and (suspected) exposure to COVID-19; R07.9 Chest pain, unspecified
CPT/HCPCS: J1650; Q9967

== ENCOUNTER 2024-05-02 09:40 | Observation (INO) | payer MEDICARE, MEDICAID ==
[2024-05-02] VITALS (26 sets, daily range): BP systolic 75–112; BP diastolic 44–62
[~2024-05-02] VITALS: Ht 160 cm; Wt 57.4 kg
[~2024-05-02 09:40] MED LIST changes: +AMLODIPINE BESY10 MG PO; +OXYBUTYNIN CHLOR5 M2 PO; +POT CHLORIDE20 ME2 PO; +ZPAK PO
[2024-05-02] MEDS ORDERED: cefTRIAXone SODIUM 2 GM in SODIUM CHLORIDE 0.9% 100 ML IV ONE (10:50)
[2024-05-02] MEDS ORDERED: SODIUM CHLORIDE 0.9% 1,000 ML IV ONE ×2 (10:50→14:15)
[2024-05-02] MEDS ORDERED: AZITHROMYCIN 500 MG in SODIUM CHLORIDE 0.9% 500 ML IV ONE (10:50)
--- NOTE | 2024-05-02 11:12 | NUR ---
FAMILY AT THE BEDSIDE, NO NEEDS AT THIS TIME.
[2024-05-02 11:21] LABS: BASO% 0.1 % (0-3); HEMATOCRIT 36.8 % (37.0-47.0); HEMOGLOBIN 11.8 g/dl (12.0-16.0); IMMATURE GRANULOCYTES 0.2 % (0.0-5.0); LYMPH% 5.3 % (15-41); MEAN CELL VOLUME 96.8 fL CALC (80.0-100.0); MEAN CORPUSCULAR HGB 31.1 pG CALC (26.0-32.0); MEAN CORPUSCULAR HGB CONC 32.1 g/dL CAL (32.0-36.0); MONO% 6.3 % (2-13); NEUT# 8.56 thou/uL (2.00-7.15); NEUT% 88.1 % (42-76); RED BLOOD COUNT 3.8 mill/uL (4.20-5.60); RED CELL DISTRI WIDTH 12.7 % (11.5-15.5)
[2024-05-02] MEDS ORDERED: AZITHROMYCIN 250 MG/TAB PO ONE (11:25)
[2024-05-02 11:31] LABS: ALBUMIN 4.4 g/dL (3.2-5.0); ALKALINE PHOSPHATASE 90 u/l (38-126); ANION GAP 12 (6-22 (CALC)); BILIRUBIN, TOTAL 0.9 mg/dL (0.02-1.3); BUN 22 mg/dL (8-23); BUN/CREATININE RATIO 21 (12-20 (CALC)); CARBON DIOXIDE 31 mmol/l (22-30); CHLORIDE 99 mmol/l (95-108); ESTIMATED GFR 60 ML/MIN (>=90 (CALC)); POTASSIUM 3.9 mmol/l (3.5-5.1); SGOT/AST 30 u/l (9-36); SODIUM 138 mmol/l (137-146); TOTAL PROTEIN 7.8 g/dL (6.3-8.2)
[2024-05-02 13:42] LABS: URINE BILIRUBIN - DIPSTICK Negative (NEGATIVE); URINE BLOOD DIPSTICK Trace-intact (NEGATIVE); URINE GLUCOSE - DIPSTICK Negative (NEGATIVE); URINE KETONE Negative (NEGATIVE); URINE LEUK ESTERASE Negative (NEGATIVE); URINE NITRITE - DIPSTICK Negative (Negative); URINE PROTEIN - DIPSTICK 30 mg/dL (NEG-TRACE); URINE SPECIFIC GRAVITY 1.015; URINE UROBILINOGEN - DIPSTICK 0.2 E.U./dL (0.2)
[2024-05-02 13:52] LABS: URINE COLOR Yellow
[2024-05-02 13:54] LABS: URINE MUCUS FEW hpf (NONE-FEW)
[2024-05-02 13:56] LABS: URINE EPITHELIAL CELLS FEW EPI/hpf (0-FEW); URINE RBC 0-2 RBC/hpf (0-5)
--- NOTE | 2024-05-02 15:16 | NUR ---
PT UPDATED ON STATUS, NO NEEDS AT THIS TIME.
--- NOTE | 2024-05-02 16:16 | NUR ---
PT REPORT TO MED SURG NURSE.
--- NOTE | 2024-05-02 16:42 | NUR ---
PT TRANSPORTED VIA WC TO ROOM 270. TRANSFERRED CARE OF PT.
--- NOTE | 2024-05-02 17:04 | NUR ---
PATIENT ARRIVED TO DC FROM THE ER TO ROOM 270. PATIENT A&OX3. BREATHING UNLABORED ON 2L NC. TELE INTACT. IV IN RAC SL;SITE CLEAN AND INTACT. PT AMBULATED TO BED X1 ASSIST;GAIT SLIGHTLY SHAKY. ASSESSMENT COMPLETED. PT DENIES ANY PAIN AT THIS TIME WELL ANY N/D/V. PERSONAL BELONGINGS PUT AWAY. PT EDUCATED DRIER UNLOADER LIGHT USE AND VERBALIZED UNDERSTANDING. NO OTHER NEEDS AT THIS TIME. BED IN LOWEST POSITION. CALL LIGHT WITHIN REACH. POC ONGOING.
[2024-05-03] MEDS ORDERED: ACETAMINOPHEN 500 MG TAB PO PRN (02:20)
--- NOTE | 2024-05-03 03:46 | NUR ---
PATIENT ASLEEP IN BED AT THSI TIME. RESPIRATIOS EVEN AND UNLABORED ON OXYGEN VIA NC. NO SIGNS OF DISTRESS NOTED. SAFTEY MEASURES IN PLACE.
[2024-05-03 04:53] VITALS: BP 90/45
--- NOTE | 2024-05-03 07:23 | NUR ---
PATIENT LYING IN BED AWAKE WATCHING TV. BREATHING UNLABORED ON 2L NC. TELE INTACT. IV IN RAC SL;SITE CLEAN AND INTACT. PT DENIES ANY PAIN OR N/D/V AT THIS TIME. BED IN LOWEST POSITION. PERSONAL ITEMS WELL CALL LIGHT WITHIN REACH. NO OTHER NEEDS AT THIS TIME. POC ONGOING.
[2024-05-03 07:39] VITALS: BP 101/54
[2024-05-03 11:30] VITALS: BP 93/54
[2024-05-03] MEDS ORDERED: BUDESONIDE IN SCH (11:50)
[2024-05-03] MEDS ORDERED: FORMOTEROL IN SCH (11:50)
[2024-05-03] MEDS ORDERED: ALBUTEROL SULFATE 8 GM INH IN PRN (12:00)
[2024-05-03] MEDS ORDERED: FORMOTEROL IN PRN (12:40)
[2024-05-03] MEDS ORDERED: BUDESONIDE IN PRN (12:40)
--- NOTE | 2024-05-03 12:45 | NUR ---
PATIENT UP SITTING IN RECLINER. BREATHING UNLABORED ON 2L NC. TELE INTACT. IV IN RAC SL;SITE CLEAN AND INTACT. PT DENIES ANY PAIN OR N/D/V AT THIS TIME. BSC NEAR. FAMILY MEMBER AT BEDSIDE. PERSONAL ITEMS WELL CALL LIGHT WITHIN REACH;PT VERBALIZED UNDERSTANDING OF USE. NO OTHER NEEDS AT THIS TIME. POC ONGOING.
--- NOTE | 2024-05-03 16:10 | NUR ---
PATIENT SITTING UP IN RECLINER WATCHING TV. BREATHING UNLABORED ON 2L NC. TELE INTACT. IV IN RAC SL;SITE CLEAN AND INTACT. PT DENIES ANY PAIN OR N/D/V AT THIS TIME. PERSONAL ITEMS WELL CALL LIGHT WITHIN REACH. POC ONGOING. NO OTHER NEEDS AT THIS TIME.
[2024-05-03 16:36] VITALS: BP 102/60
[2024-05-03 18:49] VITALS: BP 146/77
--- NOTE | 2024-05-03 19:03 | NUR ---
RECEIVED REPORT FROM JO ANN AT BEDSIDE. PATIENT RESTING WITH EYES OPEN
--- NOTE | 2024-05-03 20:00 | NUR ---
PATIENT RESTING WITH EYES OPEN
--- NOTE | 2024-05-03 21:15 | NUR ---
PATIENT RESTING WITH EYES OPEN
--- NOTE | 2024-05-03 22:00 | NUR ---
PATIENT RESTING WITH EYES OPEN
--- NOTE | 2024-05-03 23:19 | NUR ---
PATIENT RESTING WITH EYES CLOSED
--- NOTE | 2024-05-04 00:14 | NUR ---
PATIENT RESTING WITH EYES CLOSED
--- NOTE | 2024-05-04 01:13 | NUR ---
PATIENT RESTING WITH EYES CLOSED
--- NOTE | 2024-05-04 02:08 | NUR ---
PATIENT RESTING WITH EYES CLOSED
--- NOTE | 2024-05-04 03:18 | NUR ---
PATIENT RESTING WITH EYES CLOSED IN BED
--- NOTE | 2024-05-04 04:19 | NUR ---
PATIENT RESTING WITH EYES CLOSED
[2024-05-04 04:29] VITALS: BP 95/38
[2024-05-04 05:46] LABS: BASO% 0.2 % (0-3); EOS% 0.2 % (0-8); HEMATOCRIT 32.5 % (37.0-47.0); HEMOGLOBIN 10.6 g/dl (12.0-16.0); IMMATURE GRANULOCYTES 0.2 % (0.0-5.0); LYMPH% 11.5 % (15-41); MEAN CELL VOLUME 97.6 fL CALC (80.0-100.0); MEAN CORPUSCULAR HGB 31.8 pG CALC (26.0-32.0); MEAN CORPUSCULAR HGB CONC 32.6 g/dL CAL (32.0-36.0); MONO% 7.6 % (2-13); NEUT# 3.49 thou/uL (2.00-7.15); NEUT% 80.3 % (42-76); RED BLOOD COUNT 3.33 mill/uL (4.20-5.60); RED CELL DISTRI WIDTH 12.8 % (11.5-15.5)
[2024-05-04 05:57] LABS: CREATININE 0.6 mg/dL (0.5-1.0); POTASSIUM 3.2 mmol/l (3.5-5.1)
[2024-05-04 06:09] LABS: ALBUMIN 3.3 g/dL (3.2-5.0); BILIRUBIN, TOTAL 0.3 mg/dL (0.02-1.3); TOTAL PROTEIN 6.2 g/dL (6.3-8.2)
--- NOTE | 2024-05-04 07:00 | NUR ---
REPORT RECEIVED FROM [facility] [place]. PT SEEN RESTING IN BED WITHOUT COMPLAINTS. PT INDICATED FEE;ING BETTER TODAY AND POSSIBLE D/C HOME. IV PATENET AND TELE NSR 63. CALL LIGHT IN REACH. WILL MONITIOR.
[2024-05-04 07:55] VITALS: BP 104/61
[2024-05-04] MEDS ORDERED: POTASSIUM CHLORIDE 10 MEQ/TAB PO SCH (09:00)
[2024-05-04] MEDS ORDERED: MONTELUKAST SODIUM 10 MG/TAB PO SCH (09:00)
--- NOTE | 2024-05-04 10:46 | NUR ---
PT RESTING QUIETLY IIN BED AFTER SITTING UP FOR BREAKFAST. DENIES DIZINESS WHEN SITTING UP. REMAINS WITH O2 AT 2 LITERS N/C WHICH IS CHRONIC FOR PT. DOCTOR AT BEDSIDE AND PLANS ON D/C LATER TODAY. WILL MONITOR.
[2024-05-04 11:50] VITALS: BP 113/63
[2024-05-04] MEDS ORDERED: POTASSIUM CHLORIDE 20 MEQ/TAB PO SCH (12:00)
--- NOTE | 2024-05-04 13:15 | NUR ---
printed discharge papers reviewed with pt along with educational material. encouraged adequate nutritional intake for potassium supplementation. iv removed with cath tip intact and tele removed. awaiting pt ride home.
--- NOTE | 2024-05-04 14:10 | NUR ---
Discharge instructions given. Patient verbalizes understanding of same. Discharged in stable condition via Wheelchair to Home with staff. All belongings sent with pt.
== END 2024-05-04 13:50 | disposition home or self-care (01) ==
LOC: ED 09:40 → ED-I 10:01 → ED 14:17 → MS2 14:18
PROVIDERS: Family Medicine; ADMIT Internal Medicine; ATTEND Internal Medicine
DX: I95.1 Orthostatic hypotension (principal); J96.10 Chronic respiratory failure, unspecified whether with hypoxia or hypercapnia; I10 Essential (primary) hypertension; E11.9 Type 2 diabetes mellitus without complications; J43.9 Emphysema, unspecified; Z85.819 Personal history of malignant neoplasm of unspecified site of lip, oral cavity, and pharynx; Z99.81 Dependence on supplemental oxygen; Z87.891 Personal history of nicotine dependence; Z20.822 Contact with and (suspected) exposure to COVID-19
CPT/HCPCS: J0456; J0696

== ENCOUNTER 2024-07-11 10:38 | Emergency (ER) | payer MEDICARE, MEDICAID ==
[2024-07-11] VITALS (9 sets, daily range): BP systolic 106–142; BP diastolic 48–73
[~2024-07-11] VITALS: Ht 160 cm; Wt 55.0 kg
[2024-07-11] MEDS ORDERED: IPRATROPIUM-Albuterol 0.5MG-2.5MG/3 ML NEB ONE (11:05)
[2024-07-11] MEDS ORDERED: ALBUTEROL SULFATE 2.5 MG VIAL IN ONE (11:05)
[2024-07-11 12:00] LABS: BASO% 0.1 % (0-3); EOS% 0.7 % (0-8); HEMATOCRIT 37.3 % (37.0-47.0); HEMOGLOBIN 11.8 g/dl (12.0-16.0); IMMATURE GRANULOCYTES 0.1 % (0.0-5.0); LYMPH% 19.5 % (15-41); MEAN CELL VOLUME 99.5 fL CALC (80.0-100.0); MEAN CORPUSCULAR HGB 31.5 pG CALC (26.0-32.0); MEAN CORPUSCULAR HGB CONC 31.6 g/dL CAL (32.0-36.0); MONO% 6.5 % (2-13); NEUT# 6.36 thou/uL (2.00-7.15); NEUT% 73.1 % (42-76); RED BLOOD COUNT 3.75 mill/uL (4.20-5.60); RED CELL DISTRI WIDTH 12.5 % (11.5-15.5)
[2024-07-11 12:35] LABS: ANION GAP 9 (6-22 (CALC)); BUN 17 mg/dL (8-23); BUN/CREATININE RATIO 26 (12-20 (CALC)); CARBON DIOXIDE 31 mmol/l (22-30); CHLORIDE 104 mmol/l (95-108); CREATININE 0.7 mg/dL (0.5-1.0); ESTIMATED GFR 92 ML/MIN (>=90 (CALC)); POTASSIUM 3.2 mmol/l (3.5-5.1); SGOT/AST 26 u/l (9-36); SODIUM 140 mmol/l (137-146)
[2024-07-11 12:36] LABS: ALBUMIN 4.2 g/dL (3.2-5.0); ALKALINE PHOSPHATASE 102 u/l (38-126); BILIRUBIN, TOTAL 1.5 mg/dL (0.02-1.3)
[2024-07-11] MEDS ORDERED: DOXYCYCLINE100 MG PO (12:48)
[2024-07-11] MEDS ORDERED: PROVENTIL0.083 % IN (13:08)
[2024-07-11] MEDS ORDERED: POT CHLORIDE20 ME2 PO (19:29)
== END 2024-07-11 13:25 | disposition home or self-care (01) ==
LOC: ED 10:38
PROVIDERS: Family Medicine
DX: J18.9 Pneumonia, unspecified organism (principal); J44.0 Chronic obstructive pulmonary disease with (acute) lower respiratory infection; J44.1 Chronic obstructive pulmonary disease with (acute) exacerbation; I10 Essential (primary) hypertension; E11.9 Type 2 diabetes mellitus without complications; Z85.819 Personal history of malignant neoplasm of unspecified site of lip, oral cavity, and pharynx; Z20.822 Contact with and (suspected) exposure to COVID-19; R07.9 Chest pain, unspecified; R42 Dizziness and giddiness; M54.9 Dorsalgia, unspecified; E86.0 Dehydration; E87.6 Hypokalemia

== ENCOUNTER 2024-07-11 14:48 | Emergency (ER) | payer MEDICARE, MEDICAID ==
[~2024-07-11] VITALS: Ht 160 cm; Wt 55.3 kg
[2024-07-11] VITALS (18 sets, daily range): BP systolic 131–206; BP diastolic 72–107
[~2024-07-11 14:48] MED LIST changes: +DOXYCYCLINE100 MG PO; +PROVENTIL0.083 % IN
[2024-07-11 17:43] LABS: BASO% 0.1 % (0-3); HEMOGLOBIN 12.7 g/dl (12.0-16.0); IMMATURE GRANULOCYTES 0.2 % (0.0-5.0); LYMPH% 5.5 % (15-41); MEAN CELL VOLUME 101.2 fL CALC (80.0-100.0); MEAN CORPUSCULAR HGB 31.4 pG CALC (26.0-32.0); MONO% 5.7 % (2-13); NEUT# 8.65 thou/uL (2.00-7.15); NEUT% 88.5 % (42-76); RED BLOOD COUNT 4.05 mill/uL (4.20-5.60); RED CELL DISTRI WIDTH 12.5 % (11.5-15.5)
[2024-07-11 17:57] LABS: ALBUMIN 4.4 g/dL (3.2-5.0); ALKALINE PHOSPHATASE 95 u/l (38-126); ANION GAP 12 (6-22 (CALC)); BILIRUBIN, TOTAL 1.3 mg/dL (0.02-1.3); BUN 18 mg/dL (8-23); BUN/CREATININE RATIO 31 (12-20 (CALC)); CARBON DIOXIDE 26 mmol/l (22-30); CHLORIDE 105 mmol/l (95-108); CREATININE 0.6 mg/dL (0.5-1.0); ESTIMATED GFR 96 ML/MIN (>=90 (CALC)); SGOT/AST 27 u/l (9-36); SODIUM 140 mmol/l (137-146); TOTAL PROTEIN 8.1 g/dL (6.3-8.2)
[2024-07-11] MEDS ORDERED: SODIUM CHLORIDE 0.9% 1,000 ML IV ONE (18:20)
[2024-07-11] MEDS ORDERED: POTASSIUM CHLORIDE 20 MEQ/TAB PO ONE (18:25)
[2024-07-11] MEDS ORDERED: POT CHLORIDE20 ME2 PO (19:29)
== END 2024-07-11 21:15 | disposition home or self-care (01) ==
LOC: ED 14:48
PROVIDERS: Family Medicine
DX: J18.9 Pneumonia, unspecified organism (principal); J44.0 Chronic obstructive pulmonary disease with (acute) lower respiratory infection; J44.1 Chronic obstructive pulmonary disease with (acute) exacerbation; E86.0 Dehydration; I10 Essential (primary) hypertension; E11.9 Type 2 diabetes mellitus without complications; E87.6 Hypokalemia; Z85.819 Personal history of malignant neoplasm of unspecified site of lip, oral cavity, and pharynx